=== PATIENT | male | born 1965 | race Caucasian/White ===

== ENCOUNTER 2017-05-27 20:11 | Emergency (ER) | payer OTHER ==
[2017-05-27] MEDS ORDERED: KETOROLAC TROMETHAMINE 30 MG/1 ML VIAL ONE (20:18)
--- NOTE | 2017-05-27 20:22 | PDOC ---
History of Present Illness - General History Source: Patient, Old Records Exam Limitations: No Limitations - History of Present Illness Initial Comments: 05/27/17 21:15 The patient is a 51 year old male, with a significant past medical history of kidney stones (patient estimates about 9 in total requiring prior lithotripsies) , who presents to the emergency department with nausea and intermittent right flank pain for the past 2 days. The patient states that his symptoms feel similar to his prior kidney stones. The patient denies fever or chills. The patient denies vomiting, diarrhea or abdominal pain. Allergies: None reported. Past Surgical History: None reported. Social History: Non-smoker. Denies alcohol or drug use. <Dorcas Rao - Last Filed: 05/27/17 21:20> <Yola Benjamin - Last Filed: 05/28/17 02:59> - General Chief Complaint: Pain, Acute Stated Complaint: KIDNEY STONES Time Seen by Provider: 05/27/17 20:20 Past History <Dorcas Rao - Last Filed: 05/27/17 21:20> - Psycho/Social/Smoking Cessation Hx Anxiety: No Suicidal Ideation: No Smoking History: Unknown if ever smoked Have you smoked in the past 12 months: No Number of Cigarettes Smoked Daily: 0 Hx Alcohol Use: No Drug/Substance Use Hx: No Substance Use Type: None <Yola Benjamin - Last Filed: 05/28/17 02:59> - Past Medical History Allergies/Adverse Reactions: Allergies Allergy/AdvReac Type Severity Reaction Status Date / Time No Known Allergies Allergy Unverified 01/19/16 16:39 Home Medications: Ambulatory Orders Ramipril 5 mg PO DAILY 08/23/16 Hydromorphone [Dilaudid -] 2 mg PO Q6H PRN #10 tablet MDD 3 tabs 05/28/17 Ketorolac Tromethamine [Toradol] 10 mg PO Q6H PRN #20 tablet 05/28/17 Review of Systems - Review of Systems Able to Perform ROS?: Yes Comments:: 05/27/17 21:15 CONSTITUTIONAL: Absent: fever, chills, diaphoresis, generalized weakness, malaise, loss of appetite HEENT: Absent: rhinorrhea, nasal congestion, throat pain, throat swelling, difficulty swallowing, mouth swelling, ear pain, eye pain, visual Changes CARDIOVASCULAR: Absent: chest pain, syncope, palpitations, irregular heart rate, lightheadedness , peripheral edema RESPIRATORY: Absent: cough, shortness of breath, dyspnea with exertion, orthopnea, wheezing, stridor, hemoptysis GASTROINTESTINAL: Present: +Nausea Absent: abdominal pain, abdominal distension, vomiting, diarrhea, constipation, melena, hematochezia GENITOURINARY: Absent: dysuria, frequency, urgency, hesitancy, hematuria, flank pain, genital pain MUSCULOSKELETAL: Present: +Right flank pain Absent: arthralgia, joint swelling SKIN: Absent: rash, itching, pallor HEMATOLOGIC/IMMUNOLOGIC: Absent: easy bleeding, easy bruising, lymphadenopathy, frequent infections ENDOCRINE: Absent: unexplained weight gain, unexplained weight loss, heat intolerance, cold intolerance NEUROLOGIC: Absent: headache, focal weakness or paresthesias, dizziness, unsteady gait, seizure, mental status changes, bladder or bowel incontinence PSYCHIATRIC: Absent: anxiety, depression, suicidal or homicidal ideation, hallucinations <Dorcas Rao - Last Filed: 05/27/17 21:20> *Physical Exam - Physical Exam Comments: 05/27/17 21:20 GENERAL: The patient is awake, alert, and fully oriented, in no acute distress. HEAD: Normal with no signs of trauma. EYES: Pupils equal, round and reactive to light, extraocular movements intact, sclera anicteric, conjunctiva clear with no pallor. ENT: Ears normal, nares patent, oropharynx clear without exudates. Moist mucous membranes. NECK: Normal range of motion, supple without lymphadenopathy, JVD, or masses. LUNGS: Breath sounds equal, clear to auscultation bilaterally. No wheeze/ crackles. HEART: Regular rate and rhythm, normal S1 and S2 without murmur or rub. ABDOMEN: Soft/nontender/nondistended. BS wnl. No guarding or rebound. No palpable masses. No hepatosplenomegaly. EXTREMITIES: Normal range of motion, no edema. No clubbing or cyanosis. No cords , erythema, or tenderness. NEUROLOGICAL: Cranial nerves II through XII grossly intact. Normal speech, normal gait. PSYCH: Normal mood, normal affect. SKIN: Warm, dry, normal turgor, no rashes or lesions noted. <Dorcas Rao - Last Filed: 05/27/17 21:20> ED Treatment Course - LABORATORY CBC & Chemistry Diagram: 05/27/17 20:30 05/27/17 20:30 <Dorcas Rao - Last Filed: 05/27/17 21:20> - LABORATORY CBC & Chemistry Diagram: 05/27/17 20:30 05/27/17 20:30 <Yola Benjamin - Last Filed: 05/28/17 02:59> Progress Note - Progress Note Progress Note: Documentation has been prepared under my direction and personally reviewed by me in its entirety. I attest that this documented accurately reflects all work, treatment, procedures and medical decision making performed by me. <Yola Benjamin - Last Filed: 05/28/17 02:59> Medical Decision Making - Medical Decision Making As noted above, this 51-year-old man with a long history of kidney stones and erythrocytosis(on ramipril 5 mg daily) presents with 3 day history of his usual renal colic pain, located in the right flank. Patient describes history of typically having large stones needing surgical removal or lithotripsy. He states that he has not had any kidney stones in the last 7 years. He has had both uric acid and calcium oxalate stones. Exam as noted. Patient was treated with IV hydration with normal saline and 30 mg Toradol IV. Patient had significant relief in symptoms after intravenous Toradol. Renal stone protocol spiral CT interpreted by Imaging electrician second revealed hydronephrosis on the right with an obstructing calculus in the proximal right ureter measuring 4.5 mm. There is also an 8 mm calculus in the right renal pelvis. The left kidney is atrophic with a staghorn calculus in the collecting system. Other than 11 mm hypodensity in the right lobe of the liver, no other significant abnormalities seen. CBC and chemistry profile also evaluated. CBC notable for white blood cell count of 16,300; hematocrit is 49%. Chemistry profile notable for potassium 3.2; BUN was 20 with a creatinine of 1.2. Uncorrected calcium level was 6.3 with albumin of 2.8. Corrected calcium level was 7.4. Patient was asked directly about previous history of hypocalcemia. He denies any previous calcium level issues; no history of parathyroid problems. He denies muscle cramping/tremors/seizures. 12-lead electrocardiogram performed and interpreted by me: Sinus bradycardia at 656/minute; intervals, wave forms and axis are all normal. No evidence of QT prolongation or other acute abnormalities. Patient had recurrence of right flank pain with nausea. He was given 0.5 mg of Dilaudid IV. Patient reports marked relief after Dilaudid IV. Patient will be discharged with prescriptions for Toradol 10 mg by mouth (patient states that he tends to use nonsteroidal anti-inflammatory medications rather than narcotics for his renal colic pain; ibuprofen proved to be ineffective this weekend for his pain) . He will also be given a small (#10) prescription for Dilaudid 2 mg tabs to be used up to 3 times a day for severe pain. Patient states that he had had hydromorphone tabs in the past for severe renal colic pain and they were effective (he has had severe constipation with oxycodone) Patient is strongly advised to call his PMD, Dr. Omalley,tomorrow morning to arrange follow-up within the next few days. He should return to the emergency room if he has severe pain/persistent nausea or has tremulousness/muscle spasms. Meanwhile, he should drink plenty of fluids. He was given work documentation not to work for the next 2 days Since the patient has not had follow-up with urologist in recent years, he asked for referral and was given 's information. <Yola Benjamin - Last Filed: 05/28/17 02:59> *DC/Admit/Observation/Transfer - Attestations Scribe Attestion: 05/27/17 20:27 Documentation prepared by Dorcas Rao, acting as medical malpractice paralegal for Yola Benjamin MD. <Dorcas Rao - Last Filed: 05/27/17 21:20> <Yola Benjamin - Last Filed: 05/28/17 02:59> Diagnosis at time of Disposition: Renal colic on right side - Discharge Dispostion Disposition: HOME Condition at time of disposition: Stable - Prescriptions Prescriptions: Hydromorphone [Dilaudid -] 2 mg PO Q6H PRN #10 tablet MDD 3 tabs PRN Reason: Severe Pain Ketorolac Tromethamine [Toradol] 10 mg PO Q6H PRN #20 tablet PRN Reason: Pain - Referrals Referrals: Milan Singh MD [Staff Physician] - - Patient Instructions Printed Discharge Instructions: Kidney Stones -- Adult Additional Instructions: Drink plenty of water no work tomorrow Toradol 10 mg up to 3 times a day as needed for moderate pain Dilaudid 2 mg up to 3 times a day for severe pain Call Dr. Omalley's office tomorrow for followup within the next 3-4 days Followup with urologist (Dr. Singh) within the next week to 10 days Return to ER if you have severe pain/fever/vomiting - Post Discharge Activity Work/School Note: Back to Work
[2017-05-27] MEDS ORDERED: SODIUM CHLORIDE 1,000 ML IV STA (20:27)
[2017-05-27] MEDS ORDERED: KETOROLAC TROMETHAMINE 30 MG/1 ML VIAL IVPUSH ONE (20:27)
[2017-05-27 20:40] VITALS: TEMP 98.4; BMI 32.5
[2017-05-27 20:55] LABS: PH,URINE 5.5 (4.5-8); URINE APPEARANCE Clear; URINE BILIRUBIN Negative (NEGATIVE); URINE GLUCOSE (UA) Negative (NEGATIVE); URINE KETONE Negative (NEGATIVE); URINE NITRITE Negative (NEGATIVE); URINE UROBILINOGEN 0.2 E.U/dl (0.2-1.0)
[2017-05-27 21:03] LABS: URINE BLOOD 3+ (NEGATIVE); URINE COLOR YELLOW; URINE LEUK ESTERASE 1+ (NEGATIVE); URINE PROTEIN 2+ (NEGATIVE)
[2017-05-27 21:04] LABS: BASOPHIL 1.5 % (0-2.0); EOSINOPHIL 3.1 % (0-4.5); MCH 25.6 pg (25.7-33.7); MEAN CELL VOLUME 77.6 fl (80-96); MEAN PLT VOLUME 8.6 fl (7.5-11.1); NEUTROPHILS 71.3 % (42.8-82.8); PLATELET COUNT 424 K/MM3 (134-434); RDW 14.6 % (11.9-15.9); WHITE BLOOD COUNT 16.3 K/mm3 (4.0-10.8)
[2017-05-27 21:07] LABS: ALBUMIN 2.8 g/dl (3.5-5.0); ALK PHOS 59 U/L (32-92); ANION GAP 3 (8-16); BILIRUBIN,TOTAL 0.5 mg/dl (0.2-1.0); CO2 19 mmol/L (22-28); CREATININE 1.2 mg/dl (0.6-1.3); GLUCOSE,RANDOM 75 mg/dl (74-106); SGOT/AST 21 U/L (10-42); SGPT/ALT 25 U/L (10-40); TOT PROT 4.8 g/dl (6.4-8.3)
[2017-05-27 21:12] LABS: CALCIUM 6.3 mg/dl (8.4-10.2)
[2017-05-27 21:30] LABS: URINE RBC >100 /hpf (0-3)
[2017-05-27 21:31] LABS: URIC ACID CRYSTALS MODERATE /hpf (NONE SEEN)
[2017-05-27] MEDS ORDERED: HYDROmorphone HCL CARPU-JECT 1 MG/1 ML DISP.SYRIN IVPUSH ONE (23:42)
[2017-05-27] MEDS ORDERED: HYDROmorphone HCL CARPU-JECT 1 MG/1 ML DISP.SYRIN ONE (23:47)
[2017-05-28 01:33] VITALS: BP 133/89; PULSE 60
--- NOTE | 2017-05-28 09:14 | EKG ---
Test Reason : Blood Pressure : / mmHG Vent. Rate : 056 BPM Atrial Rate : 056 BPM P-R Int : 182 ms QRS Dur : 088 ms QT Int : 414 ms P-R-T Axes : 055 042 004 degrees QTc Int : 399 ms SINUS BRADYCARDIA OTHERWISE NORMAL ECG NO PREVIOUS ECGS AVAILABLE Confirmed by DENISE PAULA MD ([id number]) on 05/28/2017 9:13:56 AM Referred By: MD BUSTAMANTE Confirmed By:DENISE PAULA MD
== END 2017-05-28 01:38 | disposition home or self-care (01) ==
LOC: FER 20:11
PROC: 3E033NZ Introduction of Analgesics, Hypnotics, Sedatives into Peripheral Vein, Percutaneous Approach (ICD-10-PCS; principal; 2017-05-27)
PROC: 3E0333Z Introduction of Anti-inflammatory into Peripheral Vein, Percutaneous Approach (ICD-10-PCS; 2017-05-27)
PROC: 3E0337Z Introduction of Electrolytic and Water Balance Substance into Peripheral Vein, Percutaneous Approach (ICD-10-PCS; 2017-05-27)
DX: N23 Unspecified renal colic (principal); Z87.442 Personal history of urinary calculi
CPT/HCPCS: 36415; 74176; 80053; 81003; 81015; 85025; 93005; 99282-25

== ENCOUNTER 2017-06-06 13:56 | Inpatient (IN) | payer OTHER ==
[2017-06-06 14:01] VITALS: BMI 32.5
--- NOTE | 2017-06-06 14:30 | PDOC ---
History of Present Illness - General Chief Complaint: Revisit, Lab Variance Stated Complaint: SENT BY PCP Time Seen by Provider: 06/06/17 14:22 History Source: Patient Exam Limitations: No Limitations - History of Present Illness Initial Comments: CHIEF COMPLAINT: 51 y/o afebrile male with PMH HTN sent in by Dr. Singh for admission for kidney stone removal. HISTORY OF PRESENT ILLNESS: According to Dr. Singh, the patient has a staghorn left sided kidney stone, as well as a 9mm right sided proximal stone. He states the patient's creatinine was elevated today to 6. He is going to perform surgery this evening to remove the stones and would like him admitted. The patient states he has had some left flank and pelvic pain for the past 2 weeks. He states he feels nauseous and tired. He denies f/c, v/d, CP, SOB, back pain, dysuria. He has had to have stents in the past for his stones. Vital signs on arrival are within normal limits. REVIEW OF SYSTEMS: GENERAL/CONSTITUTIONAL: No fever/chills. No weakness. No weight change. HEAD, EYES, EARS, NOSE AND THROAT: No change in vision. No ear pain or discharge. No sore throat. CARDIOVASCULAR: No chest pain or shortness of breath. RESPIRATORY: No cough, wheezing, or hemoptysis. GASTROINTESTINAL: +left abdominal pain. +nausea. No vomiting, diarrhea, constipation. GENITOURINARY: +hematuria. No dysuria, frequency. MUSCULOSKELETAL: No joint or muscle swelling or pain. No neck or back pain. SKIN: No rash or easy bruising. NEUROLOGIC: No headache, vertigo, loss of consciousness, or loss of sensation. PHYSICAL EXAM: GENERAL: The patient is awake, alert, and fully oriented, in no acute distress. He is ambulatory and in NAD or obvious discomfort. HEAD: Normal with no signs of trauma. ENT: Pupils equal, round and reactive to light, extraocular movements intact, sclera anicteric, conjunctiva clear. Neck supple. LUNGS: Clear to auscultation bilaterally. Normal excursion. No respiratory distress or use of accessory muscles. CV: RRR, S1/S2, no MRG. Cap refill < 2 sec. ABDOMEN: Soft, non-distended, TTP of left pelvic region and LLQ. No rebound, guarding or rigidity. No flank pain with palpation. BACK: No CVA TTP b/l. EXTREMITIES: Normal range of motion, no edema. NEUROLOGICAL: Normal speech, normal gait. CN II-XII grossly intact. PSYCH: Normal mood, normal affect. SKIN: Warm, dry, normal turgor, no rashes or lesions noted. Past History - Past Medical History Allergies/Adverse Reactions: Allergies Allergy/AdvReac Type Severity Reaction Status Date / Time No Known Allergies Allergy Verified 06/06/17 14:01 Home Medications: Ambulatory Orders Ramipril 5 mg PO DAILY 08/23/16 Hydromorphone [Dilaudid -] 2 mg PO Q6H PRN #10 tablet MDD 3 tabs 05/28/17 Ketorolac Tromethamine [Toradol] 10 mg PO Q6H PRN #20 tablet 05/28/17 Kidney Stones: Yes Other medical history: HIGH RED BLOOD CELL COUNT. - Psycho/Social/Smoking Cessation Hx Anxiety: No Suicidal Ideation: No Smoking History: Never smoked Have you smoked in the past 12 months: No Number of Cigarettes Smoked Daily: 0 Hx Alcohol Use: Yes (SOCIAL) Drug/Substance Use Hx: No Substance Use Type: None *Physical Exam - Vital Signs Last Vital Signs Temp Pulse Resp BP Pulse Ox 97.4 F L 85 20 123/76 98 06/06/17 13:57 06/06/17 13:57 06/06/17 13:57 06/06/17 13:57 06/06/17 13:57 Heart Score/ECG Review - ECG Intrepretation Comment:: Twelve-lead EKG was performed and reviewed by Dr. Doshi. There is normal sinus rhythm with a normal rate. The axis is normal. The intervals are normal. There are no ST or T wave abnormalities. Impression: Normal twelve-lead EKG ED Treatment Course - LABORATORY CBC & Chemistry Diagram: 06/06/17 14:45 06/06/17 14:45 Medical Decision Making - Medical Decision Making A/P: 51 y/o male with 2 large, obstructing kidney stones, sent in by Dr. Donn Gregory for admission for surgery. Plan is as follows: 1. Pre-op labs 2. EKG 3. UA/culture 4. Admission to hospitalist Hospitalist microblogged. Pt made NPO. Will order fluids He does not want any pain meds or nausea medication at this time. Dr. Cabrera accepts admission. *DC/Admit/Observation/Transfer Diagnosis at time of Disposition: Creatinine elevation, Obstruction of kidney, Kidney stones, Hyperkalemia, Acute kidney injury - Discharge Dispostion Admit: Yes - Referrals
[2017-06-06 14:52] LABS: BASOPHIL 0.5 % (0-2.0); EOSINOPHIL 1.6 % (0-4.5); MCH 25.2 pg (25.7-33.7); MCHC 32.2 g/dl (32.0-35.9); MEAN CELL VOLUME 78.3 fl (80-96); MEAN PLT VOLUME 8.1 fl (7.5-11.1); PLATELET COUNT 280 K/MM3 (134-434); WHITE BLOOD COUNT 15.3 K/mm3 (4.0-10.0)
--- NOTE | 2017-06-06 14:54 | PDOC ---
*Physical Exam - Vital Signs Last Vital Signs Temp Pulse Resp BP Pulse Ox 97.4 F L 85 20 123/76 98 06/06/17 13:57 06/06/17 13:57 06/06/17 13:57 06/06/17 13:57 06/06/17 13:57 ED Treatment Course - LABORATORY CBC & Chemistry Diagram: 06/07/17 05:45 06/07/17 05:45 Medical Decision Making - Medical Decision Making 06/06/17 14:53 The patient was seen and evaluated in conjunction with EYAD Sam under my direct supervision, ancillary studies were reviewed. I independently interviewed and evaluated the patient and I agree with the plan as outlined by EYAD Sam . 51y M hx of b/l kidney stones, sent to ED by dr. orantes for elevated creatinine , had Cr of 6.0 as outpatient. pt placed on radiation monitor EKG performed earline tid dnot reveal any hyperK signs will obtain repeat blood work an dpreop labs plan for OR by Dr. Orantes this evening at 5pm 06/06/17 15:41 labs noted for hyperkalemia will give hyperk coctail admission to tele *DC/Admit/Observation/Transfer Diagnosis at time of Disposition: Creatinine elevation, Obstruction of kidney, Kidney stones, Hyperkalemia, Acute kidney injury - Referrals - Patient Instructions - Post Discharge Activity
[2017-06-06 15:15] LABS: ALBUMIN 3.6 g/dl (3.4-5.0); ALK PHOS 108 U/L (45-117); ANION GAP 11 (8-16); BILIRUBIN,TOTAL 0.5 mg/dL (0.2-1.0); CALCIUM 9.5 mg/dL (8.5-10.1); CO2 17 mmol/L (21-32); GLUCOSE,RANDOM 96 mg/dL (74-106); SGOT/AST 9 U/L (15-37); SGPT/ALT 21 U/L (12-78); TOT PROT 7.2 g/dl (6.4-8.2)
[2017-06-06] MEDS ORDERED: SODIUM CHLORIDE 1,000 ML IV SCH (15:15)
[2017-06-06 15:27] LABS: URINE APPEARANCE SLCLOUDY; URINE BILIRUBIN NEGATIVE (NEGATIVE); URINE COLOR LTYELLOW; URINE GLUCOSE (UA) NEGATIVE (NEGATIVE); URINE KETONE NEGATIVE (NEGATIVE); URINE NITRITE NEGATIVE (NEGATIVE); URINE UROBILINOGEN NEGATIVE E.U./dl (0.2-1.0)
[2017-06-06] MEDS ORDERED: DEXTROSE 50%-WATER - 25 GM/50 ML VIAL IVPUSH ONE ×2 (15:34→20:12)
[2017-06-06] MEDS ORDERED: INSULIN REGULAR HUMAN 100 UNITS/ML *VIAL IVPUSH ONE ×2 (15:34→20:12)
[2017-06-06] MEDS ORDERED: SODIUM BICARBONATE 8.4% 50 MEQ/50 ML DISP.SYRIN IVPUSH ONE (15:34)
[2017-06-06 15:35] LABS: INR 1.12 (0.82-1.09); PROTHROMBIN TIME (PATIENT) 12.3 SEC (9.98-11.88)
[2017-06-06] MEDS ORDERED: SODIUM POLYSTYRENE SULFONATE 15 GM/60 ML BOTTLE PO ONE (15:35)
--- NOTE | 2017-06-06 15:35 | HP ---
CHIEF COMPLAINT: Abnormal creatinine PCP: Dr. Omalley HISTORY OF PRESENT ILLNESS: This is a 51 year old male with a history of polycythemia (has regular phlebotomy treatments, on Ramipril) and nephrolithiasis s/p multiple lithotripsies referred from his urologist's for 0.9mm right UPJ calculus and left staghorn calculus with hydronephrosis and elevated creatinine and potassium. He complains of nausea and suprapubic pain. 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 Smoking: Never smoker Alcohol: Occasional Drugs: None Family History: Non-contributory Allergies No Known Allergies Allergy (Verified 06/06/17 14:01) HOME MEDICATIONS: Home Medications Medication Instructions Recorded Ramipril 5 mg PO DAILY 08/23/16 Hydromorphone [Dilaudid -] 2 mg PO Q6H PRN #10 tablet MDD 3 05/28/17 tabs Ketorolac Tromethamine [Toradol] 10 mg PO Q6H PRN #20 tablet 05/28/17 REVIEW OF SYSTEMS CONSTITUTIONAL: Absent: fever, chills, diaphoresis, generalized weakness, malaise, loss of appetite, weight change HEENT: Absent: rhinorrhea, nasal congestion, throat pain, throat swelling, difficulty swallowing, mouth swelling, ear pain, eye pain, visual changes CARDIOVASCULAR: Absent: chest pain, syncope, palpitations, irregular heart rate, lightheadedness , peripheral edema RESPIRATORY: Absent: cough, shortness of breath, dyspnea with exertion, orthopnea, wheezing, stridor, hemoptysis GASTROINTESTINAL: Absent: abdominal pain, abdominal distension, nausea, vomiting, diarrhea, constipation, melena, hematochezia GENITOURINARY: Dysuria, hematuria, suprapubic pain Absent: flank pain, genital pain MUSCULOSKELETAL: Absent: myalgia, arthralgia, joint swelling, back pain, neck pain SKIN: Absent: rash, itching, pallor HEMATOLOGIC/IMMUNOLOGIC: Absent: easy bleeding, easy bruising, lymphadenopathy, frequent infections ENDOCRINE: Absent: unexplained weight gain, unexplained weight loss, heat intolerance, cold intolerance NEUROLOGIC: Absent: headache, focal weakness or paresthesias, dizziness, unsteady gait, seizure, mental status changes, bladder or bowel incontinence PSYCHIATRIC: Absent: anxiety, depression, suicidal or homicidal ideation, hallucinations. PHYSICAL EXAMINATION GENERAL: Awake, alert, and fully oriented, in no acute distress. HEAD: Normal with no signs of trauma. EYES: Pupils equal, round and reactive to light, extraocular movements intact, sclera anicteric, conjunctiva clear. No lid lag. EARS, NOSE, THROAT: Ears normal, nares patent, oropharynx clear without exudates. Moist mucous membranes. NECK: Normal range of motion, supple without lymphadenopathy, JVD, or masses. LUNGS: Breath sounds equal, clear to auscultation bilaterally. No wheezes, and no crackles. No accessory muscle use. HEART: Regular rate and rhythm, normal S1 and S2 without murmur, rub or gallop. ABDOMEN: Soft, Suprapubic, bilateral lower quadrant tenderness (R>L). MUSCULOSKELETAL: Normal range of motion at all joints. No bony deformities or tenderness. No CVA tenderness. UPPER EXTREMITIES: 2+ pulses, warm, well-perfused. No cyanosis. No clubbing. No peripheral edema. LOWER EXTREMITIES: 2+ pulses, warm, well-perfused. No calf tenderness. No peripheral edema. NEUROLOGICAL: Cranial nerves II-XII intact. Normal speech. Normal gait. PSYCHIATRIC: Cooperative. Good eye contact. Appropriate mood and affect. SKIN: Warm, dry, normal turgor, no rashes or lesions noted, normal capillary refill. ASSESSMENT/PLAN: 51 year old male with acute kidney injury and hyperkalemia likely secondary to obstructive nephrolithiasis. Problem List - Problem (1) Acute kidney injury Assessment/Plan: -Likely secondary to obstructive nephrolithiasis -Hydration -For OR when hyperkalemia resolved -Expect improvement after lithotripsy -Consult nephrology if not resolving Code(s): N17.9 - ACUTE KIDNEY FAILURE, UNSPECIFIED (2) Hyperkalemia Assessment/Plan: -No EKG changes -Insulin 5 units Dextrose 50% 25g Sodium bicarbonate 50 mEq Code(s): E87.5 - HYPERKALEMIA (3) Obstruction of kidney Assessment/Plan: -For OR tonight -UA suggestive of infection: Ceftriaxone 1g daily, follow up urine culture Code(s): N28.89 - OTHER SPECIFIED DISORDERS OF KIDNEY AND URETER (4) Polycythemia Assessment/Plan: -No active issues -Hold Ramipril until MENDOZA resolves Code(s): D75.1 - SECONDARY POLYCYTHEMIA (5) DVT prophylaxis Assessment/Plan: -Ambulation -SCDs -Start qh post-operatively Code(s): GZM3023 - Visit type - Emergency Visit Emergency Visit: Yes ED Registration Date: 06/06/17 Care time: The patient presented to the Emergency Department on the above date and was hospitalized for further evaluation of their emergent condition. - New Patient This patient is new to me today: Yes Date on this admission: 06/06/17 - Critical Care Critical Care patient: Yes Total Critical Care Time (in minutes): 35 Critical Care Statement: The care of this patient involved high complexity decision making to prevent further life threatening deterioration of the patient 's condition and/or to evalute & treat vital organ system(s) failure or risk of failure.
[2017-06-06] MEDS ORDERED: ONDANSETRON 4 MG/2 ML VIAL IVPB PRN (15:38)
[2017-06-06] MEDS ORDERED: morphine CARPU-JECT 2 MG/1 ML DISP.SYRIN IVPUSH PRN (15:38)
[2017-06-06] MEDS ORDERED: DEXTROSE 50%-WATER 50 ML DISP.SYRIN ONE ×4 (15:49→20:45)
[2017-06-06] MEDS ORDERED: SODIUM BICARBONATE 8.4% 50 MEQ/50 ML VIAL ONE (15:49)
[2017-06-06] MEDS ORDERED: SODIUM POLYSTYRENE SULFONATE 15 GM/60 ML BOTTLE ONE (15:50)
[2017-06-06 15:52] LABS: URINE BLOOD 3+ (NEGATIVE); URINE LEUK ESTERASE 2+ (NEGATIVE); URINE PROTEIN 1+ (NEGATIVE)
[2017-06-06 16:23] LABS: URINE MUCUS RARE; URINE RBC 177 /hpf (0-3); URINE WBC 53 /hpf (3-5)
[2017-06-06] MEDS ORDERED: CEFTRIAXONE 1 GM in DEXTROSE 5%-WATER - 50 ML IVPB SCH (17:30)
[2017-06-06 18:25] LABS: ANION GAP 9 (8-16); CALCIUM 9.3 mg/dL (8.5-10.1); CO2 21 mmol/L (21-32); CREATININE 5.9 mg/dL (0.7-1.3); GLUCOSE,RANDOM 51 mg/dL (74-106)
[2017-06-06] MEDS ORDERED: DEXTROSE 5%-NORMAL SALINE 1,000 ML IV SCH ×2 (18:45→18:53)
[2017-06-06] MEDS ORDERED: ALBUTEROL SO4 0.083% IH SOL 2.5 MG/3 ML VIAL.NEB. NEB ONE (20:14)
[2017-06-06] MEDS ORDERED: INSULIN (NOVOLOG) ASPART 100 UNITS/ML 10ML VIAL ONE (20:43)
--- NOTE | 2017-06-06 21:01 | CONSULT ---
Consult - text type - Consultation Consultation Note: cc: right hydronephrosis with ureteral stones and acute renal failures hpi: patient with history of right hydro secondary to 0.9 cm right upj stone with acute renal failure and hyperkalemia. patient is comfortable. Therapeutic measures to correct the hyperkalemia is not correcting the issue. PE mild right cvat imp acute renal failure right hydro with right ureteral and upj stone with poorly functioning left kidney secondary to left staghorn calculus plan 60 minutes spent discussing case with patient, anesthesia, and invasive radiolgy. Consent for right percutaneous nephrostomy tube placement.
[2017-06-06] MEDS: morphine CARPU-JECT 4 MG/1 ML DISP.SYRIN IVPUSH PRN (22:15)
[2017-06-06 22:24] LABS: ANION GAP 11 (8-16); CALCIUM 8.9 mg/dL (8.5-10.1); CO2 17 mmol/L (21-32); GLUCOSE,RANDOM 239 mg/dL (74-106)
[2017-06-07] MEDS: morphine CARPU-JECT 4 MG/1 ML DISP.SYRIN IVPUSH PRN ×3 (02:05→21:49)
[2017-06-07 07:52] LABS: MCH 25.4 pg (25.7-33.7); MCHC 32.7 g/dl (32.0-35.9); MEAN CELL VOLUME 77.8 fl (80-96); MEAN PLT VOLUME 8.4 fl (7.5-11.1); PLATELET COUNT 275 K/MM3 (134-434); RDW 16.3 % (11.9-15.9); WHITE BLOOD COUNT 11.8 K/mm3 (4.0-10.0)
--- NOTE | 2017-06-07 08:32 | CONSULT ---
Consult - text type - Consultation Consultation Note: CC: right hydro with acute renal failure secondary to right upj and ureteral stone with poorly functioning left kidney secondary to left staghorn calculus hpi: patient is s/p a right percutaneous nephrostomy tube. Patient is doing well and is comfortable. PE vss; afeb abd- soft, non-tender; right percutaneous NT draining well with blood tinged urine morning chemistry pending imp right hydro secondary to renal and ureteral stones s/p perc acute renal failure left staghorn calculus with poor function of left kidney plan follow renal function Dr. Hall for renal consult will place ureteral stent on Sunday if medically stable
[2017-06-07 09:43] LABS: ALBUMIN 3.4 g/dl (3.4-5.0); ALK PHOS 98 U/L (45-117); BILIRUBIN,TOTAL 0.9 mg/dL (0.2-1.0); CALCIUM 9.4 mg/dL (8.5-10.1); CREATININE 2.7 mg/dL (0.7-1.3); GLUCOSE,RANDOM 100 mg/dL (74-106); MAGNESIUM 2.1 mg/dL (1.8-2.4); PHOSPHOROUS 4.8 mg/dL (2.5-4.9); SGOT/AST 13 U/L (15-37); SGPT/ALT 17 U/L (12-78); TOT PROT 6.8 g/dl (6.4-8.2)
[2017-06-07] MEDS: CEFTRIAXONE 50 ML IVPB SCH (09:49)
--- NOTE | 2017-06-07 10:49 | CON.CARD ---
Cardiology Consult (text) - Consultation Consultation Note: cc: sent to er 2/2 renal stones and hari hpi: 51 m hx kidney stones sent to er 2/2 renal stones and hari. Had been following with and recent outpt labs showed hari with cr in 6s so sent to er. No cp, sob, palps, dizzy, loc, pnd, orthopnea, le edema. No hx hrt dz, cva, tia, dm. Had nephrostomy tube and planned for ureter stent next week. Elevated k so admitted to tele. pmh: per hpi psh: nc social: no tob fam: no premature cad/scd ros: per hpi; no fever, diarrhea, gib, dysuria, wt loss, rash, cough, nasal congestion, comer, vision changes meds: Home Medications Medication Instructions Recorded Hydromorphone [Dilaudid -] 2 mg PO Q6H PRN #10 tablet MDD 3 05/28/17 tabs Ketorolac Tromethamine [Toradol] 10 mg PO Q6H PRN #20 tablet 05/28/17 pe: Vital Signs Period Temp Pulse Resp BP Sys/Aguirre Pulse Ox Last 24 Hr 97.4 F-98.5 F 64-88 17-20 116-135/67-86 95-99 nad no jvd rrr s1s2 no mrg cta bl nl eff aaox3 no le e/c/c abd nt nd pos bs no jaundice diaphoresis +dp pt no carotid bruits Laboratory Last Values WBC 11.8 K/mm3 (4.0-10.0) H 06/07/17 05:45 RBC 5.57 M/mm3 (4.00-5.60) 06/07/17 05:45 Hgb 14.1 GM/dL (11.7-16.9) 06/07/17 05:45 Hct 43.3 % (35.4-49) 06/07/17 05:45 MCV 77.8 fl (80-96) L 06/07/17 05:45 MCH 25.4 pg (25.7-33.7) L 06/07/17 05:45 MCHC 32.7 g/dl (32.0-35.9) 06/07/17 05:45 RDW 16.3 % (11.9-15.9) H 06/07/17 05:45 Plt Count 275 K/MM3 (134-434) 06/07/17 05:45 MPV 8.4 fl (7.5-11.1) 06/07/17 05:45 Neutrophils % Y 06/07/17 05:45 Lymphocytes % Y 06/07/17 05:45 Monocytes % 8.1 % (3.8-10.2) 06/06/17 14:45 Eosinophils % 1.6 % (0-4.5) 06/06/17 14:45 Basophils % 0.5 % (0-2.0) 06/06/17 14:45 INR 1.12 (0.82-1.09) 06/06/17 14:45 Sodium 143 mmol/L (136-145) 06/07/17 05:45 Potassium 5.9 mmol/L (3.5-5.1) H 06/07/17 05:45 Chloride 113 mmol/L (98-107) H 06/07/17 05:45 Carbon Dioxide 17 mmol/L (21-32) L 06/06/17 21:30 Anion Gap 11 (8-16) 06/06/17 21:30 BUN 52 mg/dL (7-18) H D 06/07/17 05:45 Creatinine 2.7 mg/dL (0.7-1.3) H D 06/07/17 05:45 Creat Clearance w eGFR 24.94 (>60) 06/07/17 05:45 POC Glucometer 88 UNITS (()) 06/06/17 18:49 Random Glucose 100 mg/dL (74-106) D 06/07/17 05:45 Calcium 9.4 mg/dL (8.5-10.1) 06/07/17 05:45 Phosphorus 4.8 mg/dL (2.5-4.9) 06/07/17 05:45 Magnesium 2.1 mg/dL (1.8-2.4) 06/07/17 05:45 Total Bilirubin 0.9 mg/dL (0.2-1.0) D 06/07/17 05:45 AST 13 U/L (15-37) L D 06/07/17 05:45 ALT 17 U/L (12-78) 06/07/17 05:45 Alkaline Phosphatase 98 U/L (45-117) 06/07/17 05:45 Total Protein 6.8 g/dl (6.4-8.2) 06/07/17 05:45 Albumin 3.4 g/dl (3.4-5.0) 06/07/17 05:45 Urine Color Ltyellow 06/06/17 15:20 Urine Appearance Slcloudy 06/06/17 15:20 Urine pH 5.0 (5.0-8.0) 06/06/17 15:20 Ur Specific [place] 1.020 (1.005-1.025) 06/06/17 15:20 Urine Protein 1+ (NEGATIVE) H 06/06/17 15:20 Urine Glucose (UA) Negative (NEGATIVE) 06/06/17 15:20 Urine Ketones Negative (NEGATIVE) 06/06/17 15:20 Urine Blood 3+ (NEGATIVE) H 06/06/17 15:20 Urine Nitrite Negative (NEGATIVE) 06/06/17 15:20 Urine Bilirubin Negative (NEGATIVE) 06/06/17 15:20 Urine Urobilinogen Negative mg/dL (0.2-1.0) 06/06/17 15:20 Ur Leukocyte Esterase 2+ (NEGATIVE) H 06/06/17 15:20 Urine RBC 177 /hpf (0-3) 06/06/17 15:20 Urine WBC 53 /hpf (3-5) 06/06/17 15:20 Urine Mucus Rare 06/06/17 15:20 Blood Type B POSITIVE 06/06/17 18:10 Antibody Screen Negative 06/06/17 14:45 tele: sr, wenckebach during sleep ecg 06/06/17: sr, nl intervals, no ischemic changes a/p: 51 m hx kidney stones sent to er 2/2 renal stones and hari. renal stones, hari, hyperkalemia: -cont ivfs -renal consulted -Had nephrostomy tube and planned for ureter stent next week. -monitor on tele while still with hyperkalemia bradycardia, wenckebach, mobitz I: -tele shows episode of mobitz I second degree avb during sleep-->likely due to increased vagal tone during sleep and possibly BAL. No particular interventions /treatment needed for wenckebach but pt should have sleep study as outpt to look for BAL -check echo, tsh
[2017-06-07 11:16] LABS: PLATELET ESTIMATE ADEQUATE (NORMAL)
[2017-06-07 11:44] LABS: ANION GAP 11 (8-16); CO2 19 mmol/L (21-32)
--- NOTE | 2017-06-07 13:07 | EKG ---
Test Reason : Blood Pressure : / mmHG Vent. Rate : 074 BPM Atrial Rate : 074 BPM P-R Int : 166 ms QRS Dur : 088 ms QT Int : 360 ms P-R-T Axes : 040 022 -06 degrees QTc Int : 399 ms NORMAL SINUS RHYTHM NORMAL ECG WHEN COMPARED WITH ECG OF 06-JUN-2017 17:15, NO SIGNIFICANT CHANGE WAS FOUND Confirmed by EMI TROTTER MD ([id number]) on 06/07/2017 1:06:37 PM Referred By: ROSE MARY GAN Confirmed By:EMI TROTTER MD
--- NOTE | 2017-06-07 13:09 | EKG ---
Test Reason : Blood Pressure : / mmHG Vent. Rate : 085 BPM Atrial Rate : 085 BPM P-R Int : 154 ms QRS Dur : 086 ms QT Int : 352 ms P-R-T Axes : 036 036 -02 degrees QTc Int : 418 ms NORMAL SINUS RHYTHM NORMAL ECG WHEN COMPARED WITH ECG OF 28-MAY-2017 01:24, VENT. RATE HAS INCREASED BY 29 BPM Confirmed by EMI TROTTER MD ([id number]) on 06/07/2017 1:09:25 PM Referred By: Confirmed By:EMI TROTTER MD
[2017-06-07] MEDS ORDERED: SODIUM CHLORIDE 0.45% 1,000 ML IV SCH (16:30)
--- NOTE | 2017-06-07 16:49 | CONSULT ---
Consultation: REQUESTING PROVIDER: CONSULT REQUEST: We have been asked to medically evaluate this patient for MENDOZA and kidney stone. HISTORY OF PRESENT ILLNESS: 51 yo M with significant PMHx of polycythemia (has regular phlebotomy treatments, on Ramipril) and nephrolithiasis s/p multiple lithotripsies referred from his urologist's for 0.9mm right UPJ calculus and left staghorn calculus with hydronephrosis and elevated creatinine and potassium. Called for consult on MENDOZA with stones. He has history of multiple stones in past x6. They have been of multiple etiology both calcium and uric acid. He states that he drinks plenty of water enough to make at least 2L of urine daily. He admits to hematuria and dysuria on admisson. Currently treated with IVF and Ceftriaxone. Denies NSAID use. Denies CP, LEAL, palpitations, N/V. 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 Smoking: Never smoker Alcohol: Occasional Drugs: None Family History: Non-contributory Allergies No Known Allergies Allergy (Verified 06/06/17 14:01) REVIEW OF SYSTEMS: CONSTITUTIONAL: Absent: fever, chills, diaphoresis, generalized weakness, malaise, loss of appetite, weight change HEENT: Absent: rhinorrhea, nasal congestion, throat pain, throat swelling, difficulty swallowing, mouth swelling, ear pain, eye pain, visual changes CARDIOVASCULAR: Absent: chest pain, syncope, palpitations, irregular heart rate, lightheadedness , peripheral edema RESPIRATORY: Absent: cough, shortness of breath, dyspnea with exertion, orthopnea, wheezing, stridor, hemoptysis GASTROINTESTINAL: Absent: abdominal pain, abdominal distension, nausea, vomiting, diarrhea, constipation, melena, hematochezia GENITOURINARY: dysuria, hematuria, flank pain Absent: frequency, urgency, hesitancy,, genital pain MUSCULOSKELETAL: Absent: myalgia, arthralgia, joint swelling, back pain, neck pain SKIN: Absent: rash, itching, pallor HEMATOLOGIC/IMMUNOLOGIC: Absent: easy bleeding, easy bruising, lymphadenopathy, frequent infections ENDOCRINE: Absent: unexplained weight gain, unexplained weight loss, heat intolerance, cold intolerance NEUROLOGIC: Absent: headache, focal weakness or paresthesias, dizziness, unsteady gait, seizure, mental status changes, bladder or bowel incontinence PSYCHIATRIC: Absent: anxiety, depression, suicidal or homicidal ideation, hallucinations. PHYSICAL EXAMINATION Vital Signs - 24 hr 06/06/17 06/06/17 06/06/17 18:08 20:30 21:55 Temperature 98.5 F 97.9 F Pulse Rate 76 77 84 Respiratory 18 18 17 Rate Blood Pressure 126/67 133/86 116/71 O2 Sat by Pulse 99 97 Oximetry (%) 06/06/17 06/06/17 06/06/17 22:00 22:15 22:30 Temperature 97.4 F L Pulse Rate 88 84 77 Respiratory 17 20 18 Rate Blood Pressure 124/73 124/75 122/77 O2 Sat by Pulse 95 Oximetry (%) 06/06/17 06/07/17 06/07/17 22:45 02:00 06:00 Temperature 97.4 F L 97.6 F 97.4 F L Pulse Rate 77 76 64 Respiratory 18 18 18 Rate Blood Pressure 122/77 133/80 130/84 O2 Sat by Pulse 95 95 Oximetry (%) 06/07/17 06/07/17 06/07/17 09:00 10:00 13:40 Temperature 97.5 F L 98 F Pulse Rate 75 97 H Respiratory 18 18 18 Rate Blood Pressure 125/83 132/87 O2 Sat by Pulse 98 Oximetry (%) GENERAL: AAO x3, NAD HEAD: NC,AT EYES: PERRLA, EOMI, anicteric sclera. EARS, NOSE, THROAT: Moist mucous membranes. NECK: supple with no jvd LUNGS: CTAB, No wheezing or rales. HEART:RRR, S1S2 normal , no M/G/R ABDOMEN: soft, NT, ND, BS(+) MUSCULOSKELETAL: R CVA tenderness. UPPER EXTREMITIES: 2+ pulses, warm, well-perfused. No cyanosis. No clubbing. Cap refill <2 seconds. No peripheral edema. LOWER EXTREMITIES: 2+ pulses, warm, well-perfused. No calf tenderness. No peripheral edema. NEUROLOGICAL: Cranial nerves II-XII intact. Normal speech. gait not observed Laboratory Results - last 24 hr 06/06/17 06/06/17 06/06/17 15:20 17:30 18:10 WBC RBC Hgb Hct MCV MCH MCHC RDW Plt Count MPV Neutrophils % Lymphocytes % Monocytes % Eosinophils % Differential Comment Platelet Estimate Sodium 142 Potassium 5.8 H Chloride 112 H Carbon Dioxide 21 D Anion Gap 9 BUN 79 H Creatinine 5.9 H Creat Clearance w eGFR POC Glucometer Random Glucose 51 L D Calcium 9.3 Phosphorus Magnesium Total Bilirubin AST ALT Alkaline Phosphatase Total Protein Albumin Urine Color Ltyellow Urine Appearance Slcloudy Urine pH 5.0 Ur Specific [place] 1.020 Urine Protein 1+ H Urine Glucose (UA) Negative Urine Ketones Negative Urine Blood 3+ H Urine Nitrite Negative Urine Bilirubin Negative Urine Urobilinogen Negative Ur Leukocyte Esterase 2+ H Urine RBC 177 Urine WBC 53 Urine Mucus Rare Blood Type B POSITIVE 06/06/17 06/06/17 06/07/17 18:49 21:30 05:45 WBC 11.8 H RBC 5.57 Hgb 14.1 Hct 43.3 MCV 77.8 L MCH 25.4 L MCHC 32.7 RDW 16.3 H Plt Count 275 MPV 8.4 Neutrophils % 72.0 Lymphocytes % 20.0 D Monocytes % 6.0 Eosinophils % 2.0 Differential Comment Manual diff done Platelet Estimate Adequate Sodium 140 Potassium 5.9 H Chloride 112 H Carbon Dioxide 17 L Anion Gap 11 BUN 78 H Creatinine 6.0 H Creat Clearance w eGFR POC Glucometer 88 Random Glucose 239 H D Calcium 8.9 Phosphorus Magnesium Total Bilirubin AST ALT Alkaline Phosphatase Total Protein Albumin Urine Color Urine Appearance Urine pH Ur Specific [place] Urine Protein Urine Glucose (UA) Urine Ketones Urine Blood Urine Nitrite Urine Bilirubin Urine Urobilinogen Ur Leukocyte Esterase Urine RBC Urine WBC Urine Mucus Blood Type 06/07/17 05:45 WBC RBC Hgb Hct MCV MCH MCHC RDW Plt Count MPV Neutrophils % Lymphocytes % Monocytes % Eosinophils % Differential Comment Platelet Estimate Sodium 143 Potassium 5.9 H Chloride 113 H Carbon Dioxide 19 L Anion Gap 11 BUN 52 H D Creatinine 2.7 H D Creat Clearance w eGFR 24.94 POC Glucometer Random Glucose 100 D Calcium 9.4 Phosphorus 4.8 Magnesium 2.1 Total Bilirubin 0.9 D AST 13 L D ALT 17 Alkaline Phosphatase 98 Total Protein 6.8 Albumin 3.4 Urine Color Urine Appearance Urine pH Ur Specific [place] Urine Protein Urine Glucose (UA) Urine Ketones Urine Blood Urine Nitrite Urine Bilirubin Urine Urobilinogen Ur Leukocyte Esterase Urine RBC Urine WBC Urine Mucus Blood Type Active Medications Generic Name Dose Route Start Last Admin Trade Name Freq PRN Reason Stop Dose Admin Ceftriaxone Sodium 50 mls @ 100 mls/hr 06/07/17 06:40 06/07/17 09:49 Rocephin 1gm Ivpb (Pre-Docked) IVPB 100 mls/hr DAILY SILVANA Administration Sodium Chloride 1,000 mls @ 100 mls/hr 06/07/17 16:30 1/2 Normal Saline IV ASDIR SILVANA Morphine Sulfate 4 mg 06/06/17 17:59 06/07/17 06:24 Morphine Injection - IVPUSH 4 mg Q4H PRN Administration PAIN Ondansetron HCl 4 mg 06/06/17 15:38 Zofran Injection IVPB Q6H PRN NAUSEA ASSESSMENT/PLAN: 51 yo M with significant PMHx of polycythemia (has regular phlebotomy treatments , on Ramipril) and nephrolithiasis s/p multiple lithotripsies referred from his urologist's for 0.9mm right UPJ calculus and left staghorn calculus with hydronephrosis and elevated creatinine and potassium. Dispo: We will continue to follow the patient. Thank you for this consultative opportunity. Problem List - Problems (1) Acute kidney injury Assessment/Plan: * Kidney function improving with IV volume expansion. * Atrophic left kidney seen on imaging.with staghorn calculi. * Most likely secondary to obstruction. * Will continue with IVF of 1/2NS @ 100ml/hr * repeat BMP now and in AM * pending resolution of Hyperkalemia to go to OR. (2) Hyperkalemia Assessment/Plan: * Will repeat BMP stat * has been receiving IVF therefore pending repeat K+ will decide on further treatment. * fluids switched 1/2NS @ 100ml/hr. (3) Kidney stones Assessment/Plan: * awaiting potassium to normalize to go to OR for lithotripsy. (4) Obstruction of kidney Visit type - Emergency Visit Emergency Visit: Yes ED Registration Date: 06/06/17 Care time: The patient presented to the Emergency Department on the above date and was hospitalized for further evaluation of their emergent condition. - New Patient This patient is new to me today: No - Critical Care Critical Care patient: No
[2017-06-07 18:16] LABS: ANION GAP 11 (8-16); CALCIUM 8.7 mg/dL (8.5-10.1); CO2 22 mmol/L (21-32); CREATININE 1.4 mg/dL (0.7-1.3); GLUCOSE,RANDOM 122 mg/dL (74-106)
--- NOTE | 2017-06-07 18:47 | PN ---
Physical Exam: SUBJECTIVE: Patient seen and examined. Has a feeling of abdominal fullness. OBJECTIVE: Vital Signs Period Temp Pulse Resp BP Sys/Aguirre Pulse Ox Last 24 Hr 97.4 F-98 F 64-97 17-20 116-133/71-87 95-98 GENERAL: The patient is awake, alert, and fully oriented, in no acute distress. HEAD: Normal with no signs of trauma. EYES: PERRL, extraocular movements intact, sclera anicteric, conjunctiva clear. No ptosis. LUNGS: Breath sounds equal, clear to auscultation bilaterally, no wheezes, no crackles, no accessory muscle use. HEART: Regular rate and rhythm, S1, S2 without murmur, rub or gallop. ABDOMEN: Soft, not tender, normoactive bowel sounds, no guarding, no rebound, not tympanic; no CVA tenderness; neprhostomy tube draining yellow urine EXTREMITIES: 2+ pulses, warm, well-perfused, no edema. NEUROLOGICAL: Cranial nerves II through XII grossly intact. Normal speech, gait not observed. Moves all extremities freely. Laboratory Results - last 24 hr 06/06/17 06/06/17 06/06/17 15:20 17:30 18:10 WBC RBC Hgb Hct MCV MCH MCHC RDW Plt Count MPV Neutrophils % Lymphocytes % Monocytes % Eosinophils % Differential Comment Platelet Estimate Sodium 142 Potassium 5.8 H Chloride 112 H Carbon Dioxide 21 D Anion Gap 9 BUN 79 H Creatinine 5.9 H Creat Clearance w eGFR POC Glucometer Random Glucose 51 L D Calcium 9.3 Phosphorus Magnesium Total Bilirubin AST ALT Alkaline Phosphatase Total Protein Albumin Urine Color Ltyellow Urine Appearance Slcloudy Urine pH 5.0 Ur Specific [place] 1.020 Urine Protein 1+ H Urine Glucose (UA) Negative Urine Ketones Negative Urine Blood 3+ H Urine Nitrite Negative Urine Bilirubin Negative Urine Urobilinogen Negative Ur Leukocyte Esterase 2+ H Urine RBC 177 Urine WBC 53 Urine Mucus Rare Blood Type B POSITIVE 06/06/17 06/06/17 06/07/17 18:49 21:30 05:45 WBC 11.8 H RBC 5.57 Hgb 14.1 Hct 43.3 MCV 77.8 L MCH 25.4 L MCHC 32.7 RDW 16.3 H Plt Count 275 MPV 8.4 Neutrophils % 72.0 Lymphocytes % 20.0 D Monocytes % 6.0 Eosinophils % 2.0 Differential Comment Manual diff done Platelet Estimate Adequate Sodium 140 Potassium 5.9 H Chloride 112 H Carbon Dioxide 17 L Anion Gap 11 BUN 78 H Creatinine 6.0 H Creat Clearance w eGFR POC Glucometer 88 Random Glucose 239 H D Calcium 8.9 Phosphorus Magnesium Total Bilirubin AST ALT Alkaline Phosphatase Total Protein Albumin Urine Color Urine Appearance Urine pH Ur Specific [place] Urine Protein Urine Glucose (UA) Urine Ketones Urine Blood Urine Nitrite Urine Bilirubin Urine Urobilinogen Ur Leukocyte Esterase Urine RBC Urine WBC Urine Mucus Blood Type 06/07/17 06/07/17 05:45 17:00 WBC RBC Hgb Hct MCV MCH MCHC RDW Plt Count MPV Neutrophils % Lymphocytes % Monocytes % Eosinophils % Differential Comment Platelet Estimate Sodium 143 141 Potassium 5.9 H 4.7 D Chloride 113 H 108 H Carbon Dioxide 19 L 22 Anion Gap 11 11 BUN 52 H D 31 H D Creatinine 2.7 H D 1.4 H D Creat Clearance w eGFR 24.94 POC Glucometer Random Glucose 100 D 122 H D Calcium 9.4 8.7 Phosphorus 4.8 Magnesium 2.1 Total Bilirubin 0.9 D AST 13 L D ALT 17 Alkaline Phosphatase 98 Total Protein 6.8 Albumin 3.4 Urine Color Urine Appearance Urine pH Ur Specific [place] Urine Protein Urine Glucose (UA) Urine Ketones Urine Blood Urine Nitrite Urine Bilirubin Urine Urobilinogen Ur Leukocyte Esterase Urine RBC Urine WBC Urine Mucus Blood Type Active Medications Generic Name Dose Route Start Last Admin Trade Name Freq PRN Reason Stop Dose Admin Ceftriaxone Sodium 50 mls @ 100 mls/hr 06/07/17 06:40 06/07/17 09:49 Rocephin 1gm Ivpb (Pre-Docked) IVPB 100 mls/hr DAILY SILVANA Administration Sodium Chloride 1,000 mls @ 100 mls/hr 06/07/17 16:30 1/2 Normal Saline IV ASDIR SILVANA Morphine Sulfate 4 mg 06/06/17 17:59 06/07/17 06:24 Morphine Injection - IVPUSH 4 mg Q4H PRN Administration PAIN Ondansetron HCl 4 mg 06/06/17 15:38 Zofran Injection IVPB Q6H PRN NAUSEA ASSESSMENT/PLAN 51 year-old male with a PMH of polycythemia and nephrolithiasis, sent to ED by his urologist for right obstructing ureteral stone and for a left renal staghorn calculus. (1) Acute kidney injury -Likely secondary to obstructive ureteral stone and left renal staghorn calculus -Cr 6.0 on admission, now 2.7; baseline 1.2 -continue IV fluids (2) Hyperkalemia -No EKG changes -K 6.7 on admission, given insulin/dextrose/sodium bicarb; improved to 5.9 (3) Right hydronephrosis secondary to obstructing ureteral stone s/p right nephrostomy tube 06/06 -draining clear yellow urine -plan is to place ureteral stent on Sunday (4) UTI -pyuria -culture pending -continue ceftriaxone (day #2) (4) Polycythemia -No active issues -Hold Ramipril until MENDOZA resolves (5) Mobitz Type I heart block --per cardiology, tele showed episode of mobitz I second degree avb during sleep -->likely due to increased vagal tone during sleep and possibly BAL --no particular interventions/treatment needed to look for BAL --echo ordered --check TSH --outpatient workup for possible BAL F/E/N Fluids: D5NS@75mL/hr Electrolytes: replete as indicated Nutrition: renal low K diet DVT prophylaxis: subq heparin, oob, ambulation Dispo: continues to require inpatient care. Full code. Visit type - Emergency Visit Emergency Visit: Yes ED Registration Date: 06/06/17 Care time: The patient presented to the Emergency Department on the above date and was hospitalized for further evaluation of their emergent condition. - New Patient This patient is new to me today: Yes Date on this admission: 06/07/17 - Critical Care Critical Care patient: No
--- NOTE | 2017-06-07 19:10 | PN ---
Teaching Attending Note Name of Resident: Clayton Bustamante (Nephrology) ATTENDING PHYSICIAN STATEMENT I saw and evaluated the patient. I reviewed the resident's note and discussed the case with the resident. I agree with the resident's findings and plan as documented. Nephrology Consult Please see consult filled out by resident. Pt is a 51 year old male with pmhx of polycythemia and nephrolithiasis who was sent in from urology for stone removal. He was found to be in acute renal failure and we were called to evaluate him. He was also found to be hyperkalemic. He has history of nephrolithiasis. He says he has an atrophic left kidney. He feels better today than he did yesterday. Pmhx nephrolithiasis and polycythemia pshyx lithotripsy soc neg family hx denies ros neg aside from hpi Current Medications Generic Name Dose Route Start Last Admin Trade Name Freq PRN Reason Stop Dose Admin Heparin Sodium (Porcine) 5,000 unit 06/07/17 22:00 Heparin - SQ BID SILVANA Ceftriaxone Sodium 50 mls @ 100 mls/hr 06/07/17 06:40 06/07/17 09:49 Rocephin 1gm Ivpb (Pre-Docked) IVPB 100 mls/hr DAILY SILVANA Administration Sodium Chloride 1,000 mls @ 100 mls/hr 06/07/17 16:30 1/2 Normal Saline IV ASDIR SILVANA Morphine Sulfate 4 mg 06/06/17 17:59 06/07/17 06:24 Morphine Injection - IVPUSH 4 mg Q4H PRN Administration PAIN Ondansetron HCl 4 mg 06/06/17 15:38 Zofran Injection IVPB Q6H PRN NAUSEA Current Active Problems Acute kidney injury (Acute) Hyperkalemia (Acute) Kidney stones (Acute) Obstruction of kidney (Acute) Polycythemia Laboratory Tests 06/06/17 06/06/17 06/06/17 14:45 15:20 17:30 Sodium 137 Potassium 6.7 H* 5.8 H Creatinine 6.0 H 5.9 H Urine Protein 1+ H Urine Blood 3+ H Ur Leukocyte Esterase 2+ H Urine RBC 177 Urine WBC 53 06/06/17 06/07/17 06/07/17 21:30 05:45 17:00 Sodium Potassium 5.9 H 5.9 H 4.7 D Creatinine 6.0 H 2.7 H D 1.4 H D Urine Protein Urine Blood Ur Leukocyte Esterase Urine RBC Urine WBC Last Vital Signs Temp Pulse Resp BP Pulse Ox 98 F 97 H 18 132/87 98 06/07/17 13:40 06/07/17 13:40 06/07/17 13:40 06/07/17 13:40 06/07/17 09:00 cardio s1s2 reg pulm clear Gi soft right nephrostomy tube ext neg edema neuro awake and alert skin neg rash Impression 1. MENDOZA resolving 2. obstructive uropathy 3. CKD 4. nephrolithiasis 5. polycythemia 6. hyperkalemia Plan - ordered stat labs and reviewed them, potassium is improved - renal function is improving - changed fluids to 1/2 ns - repeat labs in am - monitor lytes - will need outpt follow up Dr Hall
[2017-06-07] MEDS: SODIUM CHLORIDE 0.45% 1,000 ML IV SCH (19:45)
[2017-06-07] MEDS: HEPARIN NA (PORCINE) 5,000 UNITS/ML 1ML VIAL SQ SCH (21:49)
[2017-06-08 07:44] LABS: ANION GAP 6 (8-16); CALCIUM 9.5 mg/dL (8.5-10.1); CO2 25 mmol/L (21-32); CREATININE 1.2 mg/dL (0.7-1.3); GLUCOSE,RANDOM 88 mg/dL (74-106)
[2017-06-08 07:54] LABS: THYROID STIMULATING HORMONE 2.25 uIU/ml (0.358-3.74)
--- NOTE | 2017-06-08 08:26 | CONSULT ---
Consult - text type - Consultation Consultation Note: CC: UTI/acute renal failure/atrophic left kidney/right ureteral obsturction secondary to urolithiasis HPI: Patient improving. Creatinine is normalizing. Cardiology and nephrology consults appreciated. Patient is with mild right side flank pain discomfort. PE afeb abd-soft, nontender; mild right CVAT imp uti acute renal failure right hydro secondary to renal/ureteral stones s/p right percutaneous nephrostomy plan continue antibiotics follow renal function for sunday for internalization of stent and right ureteroscopic stone basketing discussed x 25 minutes
--- NOTE | 2017-06-08 08:34 | PN ---
Physical Exam: SUBJECTIVE: Patient seen and examined. Complaining of bilateral flank tenderness , worse with coughing. Has had two episodes of sweats today. OBJECTIVE: Vital Signs Period Temp Pulse Resp BP Sys/Aguirre Pulse Ox Last 24 Hr 97.5 F-98.7 F 75-97 18-18 125-147/83-95 98-98 GENERAL: The patient is awake, alert, and fully oriented, in no acute distress. HEAD: Normal with no signs of trauma. EYES: PERRL, extraocular movements intact, sclera anicteric, conjunctiva clear. No ptosis. LUNGS: Breath sounds equal, clear to auscultation bilaterally, no wheezes, no crackles, no accessory muscle use. HEART: Regular rate and rhythm, S1, S2 without murmur, rub or gallop. ABDOMEN: Soft, not tender, normoactive bowel sounds, no guarding, no rebound, not tympanic; +right CVA tenderness; nephrostomy tube draining yellow urine EXTREMITIES: 2+ pulses, warm, well-perfused, no edema. NEUROLOGICAL: Cranial nerves II through XII grossly intact. Normal speech, gait not observed. Moves all extremities freely. Laboratory Results - last 24 hr 06/07/17 06/07/17 06/07/17 05:45 05:45 17:00 WBC 11.8 H RBC 5.57 Hgb 14.1 Hct 43.3 MCV 77.8 L MCH 25.4 L MCHC 32.7 RDW 16.3 H Plt Count 275 MPV 8.4 Neutrophils % 72.0 Lymphocytes % 20.0 D Monocytes % 6.0 Eosinophils % 2.0 Differential Comment Manual diff done Platelet Estimate Adequate Sodium 143 141 Potassium 5.9 H 4.7 D Chloride 113 H 108 H Carbon Dioxide 19 L 22 Anion Gap 11 11 BUN 52 H D 31 H D Creatinine 2.7 H D 1.4 H D Creat Clearance w eGFR 24.94 Random Glucose 100 D 122 H D Calcium 9.4 8.7 Phosphorus 4.8 Magnesium 2.1 Total Bilirubin 0.9 D AST 13 L D ALT 17 Alkaline Phosphatase 98 Total Protein 6.8 Albumin 3.4 Active Medications Generic Name Dose Route Start Last Admin Trade Name Freq PRN Reason Stop Dose Admin Heparin Sodium (Porcine) 5,000 unit 06/07/17 22:00 06/07/17 21:49 Heparin - SQ 5,000 unit BID SILVANA Administration Ceftriaxone Sodium 50 mls @ 100 mls/hr 06/07/17 06:40 06/07/17 09:49 Rocephin 1gm Ivpb (Pre-Docked) IVPB 100 mls/hr DAILY SILVANA Administration Sodium Chloride 1,000 mls @ 75 mls/hr 06/07/17 19:16 06/07/17 19:45 1/2 Normal Saline IV 75 mls/hr ASDIR SILVANA Administration Morphine Sulfate 4 mg 06/06/17 17:59 06/07/17 21:49 Morphine Injection - IVPUSH 4 mg Q4H PRN Administration PAIN Ondansetron HCl 4 mg 06/06/17 15:38 Zofran Injection IVPB Q6H PRN NAUSEA ASSESSMENT/PLAN 51 year-old male with a PMH of polycythemia and nephrolithiasis, sent to ED by his urologist for right obstructing ureteral stone and for a left renal staghorn calculus. Acute kidney injury, resolved -Cr 6.0 on admission, now at baseline 1.2 Hyperkalemia, resolved Right hydronephrosis secondary to obstructing ureteral stone s/p right nephrostomy tube 06/06 -draining clear yellow urine -plan is to place ureteral stent on Sunday UTI -pyuria -culture negative -afebrile, WBC trending down -will continue empiric ceftriaxone (day #3) pending placement of ureteral stent Polycythemia -No active issues -will continue to hold lisinopril Mobitz Type I heart block --per cardiology, tele showed episode of mobitz I second degree avb during sleep -->likely due to increased vagal tone during sleep and possibly BAL --no particular interventions/treatment needed --06/08 Echo: LV normal; RV normal; trace TR --TSH wnl --outpatient workup for possible BAL Bilateral calf tenderness -US BLE ordered F/E/N Fluids: PO intake adequate Electrolytes: replete as indicated Nutrition: renal low K diet DVT prophylaxis: subq heparin, oob, ambulation Dispo: continues to require inpatient care. Full code. Visit type - Emergency Visit Emergency Visit: Yes ED Registration Date: 06/06/17 Care time: The patient presented to the Emergency Department on the above date and was hospitalized for further evaluation of their emergent condition. - New Patient This patient is new to me today: No - Critical Care Critical Care patient: No
[2017-06-08] MEDS: HEPARIN NA (PORCINE) 5,000 UNITS/ML 1ML VIAL SQ SCH (09:39)
[2017-06-08] MEDS: CEFTRIAXONE 50 ML IVPB SCH (09:39)
[2017-06-08] MEDS: SODIUM CHLORIDE 0.45% 1,000 ML IV SCH (09:42)
--- NOTE | 2017-06-08 11:24 | PN ---
Progress Note (short form) - Note Progress Note: s: feeling better, no cp sob palps dizzy o: Vital Signs Period Temp Pulse Resp BP Sys/Aguirre Pulse Ox Last 24 Hr 97.8 F-98.7 F 80-97 18-18 128-147/87-95 98-98 nad no jvd rrr s1s2 no mrg cta bl nl eff aaox3 no le e/c/c abd nt nd pos bs no jaundice diaphoresis Current Medications Generic Name Dose Route Start Last Admin Trade Name Freq PRN Reason Stop Dose Admin Heparin Sodium (Porcine) 5,000 unit 06/07/17 22:00 06/08/17 09:39 Heparin - SQ 5,000 unit BID SILVANA Administration Ceftriaxone Sodium 50 mls @ 100 mls/hr 06/07/17 06:40 06/08/17 09:39 Rocephin 1gm Ivpb (Pre-Docked) IVPB 100 mls/hr DAILY SILVANA Administration Morphine Sulfate 4 mg 06/06/17 17:59 06/07/17 21:49 Morphine Injection - IVPUSH 4 mg Q4H PRN Administration PAIN Ondansetron HCl 4 mg 06/06/17 15:38 Zofran Injection IVPB Q6H PRN NAUSEA CBC, BMP 06/07/17 05:45 06/08/17 05:35 tele: sr ecg 06/06/17: sr, nl intervals, no ischemic changes echo 05/2017: nl lv/rv, no sig valve path a/p: 51 m hx kidney stones sent to er 2/2 renal stones and hari. renal stones, hari, hyperkalemia: -cont ivfs -renal following -cr improved, k improving -Had nephrostomy tube and planned for ureter stent next week. -no cardiac contraindications (low risk) for the planned procedure bradycardia, wenckebach, mobitz I: -tele shows episode of mobitz I second degree avb during sleep-->likely due to increased vagal tone during sleep and possibly BAL. No particular interventions /treatment needed for wenckebach but pt should have sleep study as outpt to look for BAL -echo, tsh unremarkable here -can dc tele
--- NOTE | 2017-06-08 16:14 | PN ---
Progress Note (short form) - Note Progress Note: RENAL Pt awake and alert comfortable by bedside c/o cramping in lower extremities and soreness of muscles perc is working well says he was taking ramipril for polycythemia, but the phlebotomies were what helped him Last Vital Signs Temp Pulse Resp BP Pulse Ox 98.2 F 95 H 18 146/94 98 06/08/17 13:50 06/08/17 13:50 06/08/17 13:50 06/08/17 13:50 06/08/17 09:00 lungs clear cvs s1s2 rr abd soft ext no edema, has good pulses bilat neuro a+ox3 CBC, BMP 06/07/17 05:45 06/08/17 05:35 Current Medications Generic Name Dose Route Start Last Admin Trade Name Freq PRN Reason Stop Dose Admin Heparin Sodium (Porcine) 5,000 unit 06/07/17 22:00 06/08/17 09:39 Heparin - SQ 5,000 unit BID SILVANA Administration Ceftriaxone Sodium 50 mls @ 100 mls/hr 06/07/17 06:40 06/08/17 09:39 Rocephin 1gm Ivpb (Pre-Docked) IVPB 100 mls/hr DAILY SILVANA Administration Morphine Sulfate 4 mg 06/06/17 17:59 06/07/17 21:49 Morphine Injection - IVPUSH 4 mg Q4H PRN Administration PAIN Ondansetron HCl 4 mg 06/06/17 15:38 Zofran Injection IVPB Q6H PRN NAUSEA Impression 1. 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 obstructive uropathy 3. CKD 4. nephrolithiasis 5. polycythemia- 6. hyperkalemia- may have been worsened by ramipril which was used for polycythemia 7 likely has ckd from nephrolithiasis Plan - keep off ramipril, would favor phlebotomies as necessary - repeat labs in am - monitor lytes - will need outpt follow up - urology to internalize the stent next week - must aggressively deal with these calculi since he already lost one kidney MV
[2017-06-08] MEDS ORDERED: HEPARIN NA (PORCINE) 5,000 UNITS/ML 1ML VIAL IVPUSH PRN ×3 (18:28→19:00)
[2017-06-08] MEDS ORDERED: HEPARIN INFUSION - 500 ML IVPB SCH (18:30)
[2017-06-08] MEDS ORDERED: OXYCODONE/APAP 5/325MG COMBO TABLET PO PRN (19:39)
--- NOTE | 2017-06-08 19:46 | HOSP ---
Subjective - Review of Symptoms Events since last encounter: Patient this morning reported bilateral calf "tightness" which he has had x 1 week. US of b/l LE performed this afternoon was positive for bilateral deep calf DVTs (wet read). Ordered heparin drip. 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 Boo. Patient is Wells score 4.5, moderate risk for PE. Discussed CTA with Dr. Glynn (nephrology) who does not want patient to receive IV contrast due to his recent MENDOZA. Will request pulmonary consult and VQ scan. Note: --06/07 Echo: LV normal; RV normal; trace TR Physical Examination Vital Signs: Vital Signs Temperature 98.8 F 06/08/17 17:00 Pulse Rate 95 H 06/08/17 17:00 Respiratory Rate 18 06/08/17 17:00 Blood Pressure 133/80 06/08/17 17:00 O2 Sat by Pulse Oximetry (%) 98 06/08/17 09:00 Labs: CBC, BMP 06/07/17 05:45 06/08/17 05:35
[2017-06-08] MEDS: HEPARIN INFUSION - 500 ML IVPB SCH (20:16)
[2017-06-09] MEDS: oxyCODONE HCL 5 MG TABLET PO PRN ×3 (05:43→21:56)
[2017-06-09] MEDS: ACETAMINOPHEN 325 MG TABLET (FP) PO PRN ×3 (05:53→21:56)
[2017-06-09] MEDS: CEFTRIAXONE 50 ML IVPB SCH (09:05)
--- NOTE | 2017-06-09 10:08 | PN ---
Progress Note, Physician History of Present Illness: PULMONARY CONSULTATION DICTATED 01/10/17 IMP BILATERAL DVT/ R/O PE MENDOZA OBSTRUCTIVE UROPATHY S/P NEPHROSTOMY POLYCYTHEMIA PLAN ANTICOAGULATION V/Q SCAN CHEST X-RAY ECHO CONSIDER TEMPORARY IVC FILTER PRIOR TO SURGERY DR LAURA - Current Medication List Current Medications: Active Medications Acetaminophen (Tylenol -) 325 mg PO Q6H PRN PRN Reason: PAIN LEVEL 6-10 Last Admin: 06/09/17 05:53 Dose: 325 mg Heparin Sodium (Porcine) (Heparin -) 1,000 unit IVPUSH PRN PRN PRN Reason: Heparin Heparin Sodium (Porcine) (Heparin -) 5,000 unit IVPUSH PRN PRN PRN Reason: Heparin Last Admin: 06/09/17 03:38 Dose: 5,000 unit Ceftriaxone Sodium (Rocephin 1gm Ivpb (Pre-Docked)) 50 mls @ 100 mls/hr IVPB DAILY SILVANA Last Admin: 06/09/17 09:05 Dose: 100 mls/hr Heparin Sodium/Dextrose (Heparin Infusion -) 500 mls @ 20 mls/hr IVPB TITR SILVANA ; 1,000 UNITS/HR PRN Reason: Protocol Last Titration: 06/09/17 03:37 Dose: 1,150 units/hr Ondansetron HCl (Zofran Injection) 4 mg IVPB Q6H PRN PRN Reason: NAUSEA Oxycodone HCl (Roxicodone -) 5 mg PO Q6H PRN PRN Reason: PAIN LEVEL 6-10 Last Admin: 06/09/17 05:43 Dose: 5 mg - Objective Vital Signs: Vital Signs Temperature 97.5 F L 06/09/17 09:00 Pulse Rate 90 06/09/17 09:00 Respiratory Rate 20 06/09/17 09:00 Blood Pressure 136/96 06/09/17 09:00 O2 Sat by Pulse Oximetry (%) 97 06/09/17 09:00 Labs: CBC, BMP 06/07/17 05:45 06/08/17 05:35 INR, PTT INR 1.12 (0.82-1.09) 06/06/17 14:45
--- NOTE | 2017-06-09 10:11 | PN ---
Progress Note (short form) - Note Progress Note: ULMONARY CONSULTATION DICTATED 01/10/17 IMP BILATERAL DVT/ R/O PE MENDOZA OBSTRUCTIVE UROPATHY S/P NEPHROSTOMY POLYCYTHEMIA PLAN ANTICOAGULATION V/Q SCAN CHEST X-RAY ECHO CONSIDER TEMPORARY IVC FILTER PRIOR TO SURGERY DR LAURA Problem List - Problems (1) Acute kidney injury Code(s): N17.9 - ACUTE KIDNEY FAILURE, UNSPECIFIED (2) Creatinine elevation Code(s): R79.89 - OTHER SPECIFIED ABNORMAL FINDINGS OF BLOOD CHEMISTRY (3) Hyperkalemia Code(s): E87.5 - HYPERKALEMIA (4) Kidney stones Code(s): N20.0 - CALCULUS OF KIDNEY (5) Obstruction of kidney Code(s): N28.89 - OTHER SPECIFIED DISORDERS OF KIDNEY AND URETER (6) Polycythemia Code(s): D75.1 - SECONDARY POLYCYTHEMIA (7) Dvt femoral (deep venous thrombosis) Code(s): I82.419 - ACUTE EMBOLISM AND THROMBOSIS OF UNSPECIFIED FEMORAL VEIN
--- NOTE | 2017-06-09 10:55 | PN ---
Progress Note (short form) - Note Progress Note: s: feeling better, no cp sob palps dizzy o: Vital Signs Period Temp Pulse Resp BP Sys/Aguirre Pulse Ox Last 24 Hr 97.4 F-98.8 F 86-107 18-20 133-146/80-98 95-97 nad no jvd rrr s1s2 no mrg cta bl nl eff aaox3 no le e/c/c abd nt nd pos bs no jaundice diaphoresis Current Medications Generic Name Dose Route Start Last Admin Trade Name Freq PRN Reason Stop Dose Admin Acetaminophen 325 mg 06/08/17 19:48 06/09/17 05:53 Tylenol - PO 325 mg Q6H PRN Administration PAIN LEVEL 6-10 Heparin Sodium (Porcine) 1,000 unit 06/08/17 19:00 Heparin - IVPUSH PRN PRN Heparin Heparin Sodium (Porcine) 5,000 unit 06/08/17 19:00 06/09/17 03:38 Heparin - IVPUSH 5,000 unit PRN PRN Administration Heparin Ceftriaxone Sodium 50 mls @ 100 mls/hr 06/07/17 06:40 06/09/17 09:05 Rocephin 1gm Ivpb (Pre-Docked) IVPB 100 mls/hr DAILY SILVANA Administration Heparin Sodium/Dextrose 500 mls @ 20 mls/hr 06/08/17 19:00 06/09/17 03:37 Heparin Infusion - IVPB 1,150 units/hr TITR SILVANA Titration Protocol 1,000 UNITS/HR Ondansetron HCl 4 mg 06/06/17 15:38 Zofran Injection IVPB Q6H PRN NAUSEA Oxycodone HCl 5 mg 06/08/17 19:48 06/09/17 05:43 Roxicodone - PO 5 mg Q6H PRN Administration PAIN LEVEL 6-10 CBC, BMP 06/07/17 05:45 06/08/17 05:35 tele: sr ecg 06/06/17: sr, nl intervals, no ischemic changes echo 05/2017: nl lv/rv, no sig valve path a/p: 51 m hx kidney stones sent to er 2/2 renal stones and hari. renal stones, hari, hyperkalemia: -cont ivfs -renal following -cr improved, k improving -Had nephrostomy tube and planned for ureter stent next week. bradycardia, wenckebach, mobitz I: -tele shows episode of mobitz I second degree avb during sleep-->likely due to increased vagal tone during sleep and possibly BAL. No particular interventions /treatment needed for wenckebach but pt should have sleep study as outpt to look for BAL -echo, tsh unremarkable here dvts: -found to have bl dvts here, now on hep gtt -planned for v/q scan to eval for pe
--- NOTE | 2017-06-09 11:28 | PN ---
Physical Exam: SUBJECTIVE: Patient seen and examined. He says 2 weeks ago he started having SOB. His lower ext are less tight today, hes able to walk normally OBJECTIVE: Vital Signs Period Temp Pulse Resp BP Sys/Aguirre Pulse Ox Last 24 Hr 97.4 F-98.8 F 86-107 18-20 133-146/80-98 95-97 PE Neuro: alert, awake, c2-12intact Pulm: CTAB CV: s1 s2 rrr no mrg Abd: s nt nd + bs : R flank nephrostomy + drainage Ext: no le swelling, LLE calf tightness, no erythema Laboratory Results - last 24 hr 06/08/17 06/09/17 19:30 02:50 PTT (Actin FS) 34.8 H 38.3 H Active Medications Generic Name Dose Route Start Last Admin Trade Name Freq PRN Reason Stop Dose Admin Acetaminophen 325 mg 06/08/17 19:48 06/09/17 05:53 Tylenol - PO 325 mg Q6H PRN Administration PAIN LEVEL 6-10 Heparin Sodium (Porcine) 1,000 unit 06/08/17 19:00 Heparin - IVPUSH PRN PRN Heparin Heparin Sodium (Porcine) 5,000 unit 06/08/17 19:00 06/09/17 03:38 Heparin - IVPUSH 5,000 unit PRN PRN Administration Heparin Ceftriaxone Sodium 50 mls @ 100 mls/hr 06/07/17 06:40 06/09/17 09:05 Rocephin 1gm Ivpb (Pre-Docked) IVPB 100 mls/hr DAILY SILVANA Administration Heparin Sodium/Dextrose 500 mls @ 20 mls/hr 06/08/17 19:00 06/09/17 03:37 Heparin Infusion - IVPB 1,150 units/hr TITR SILVANA Titration Protocol 1,000 UNITS/HR Ondansetron HCl 4 mg 06/06/17 15:38 Zofran Injection IVPB Q6H PRN NAUSEA Oxycodone HCl 5 mg 06/08/17 19:48 06/09/17 05:43 Roxicodone - PO 5 mg Q6H PRN Administration PAIN LEVEL 6-10 Imaging: - ECHO 06/08: LV normal; RV normal; trace TR Assessment: 51 year old male with a PMH of polycythemia and nephrolithiasis, sent to ED by his urologist for right obstructing ureteral stone and for a left renal staghorn calculus. Plan: 1. Bilateral DVT's - Suspect d/t hx of polycythemia vera - Continue heparin gtt - Will go for V/Q scan r/p PE and IVC filter Sunday in IR - D/w Pulmonary, IR 2. MENDOZA - Due to obstructive uropathy - MENDOZA resolved - Hold lisinopril 3. Hyperkalemia - Elevated today - Check AM BMP - Consider gentle hydration pending 4. Right hydronephrosis secondary to obstructing ureteral stone s/p right nephrostomy tube 06/06 - Plan for ureteral stent on Sunday 5. UTI - Repeat UA eval pyuria - Urine cx negative - Cont ceftriaxone (day #4), await UA results 6. Polycythemia - No active issues, lat seen Dr. Madrigal 1 month ago 7. Mobitz Type I heart block - Per cardiology, tele showed episode of mobitz I second degree avb during sleep - - Likely due to increased vagal tone during sleep and possibly BAL - Outpatient workup for possible BAL Visit type - Emergency Visit Emergency Visit: Yes ED Registration Date: 06/06/17 Care time: The patient presented to the Emergency Department on the above date and was hospitalized for further evaluation of their emergent condition. - New Patient This patient is new to me today: Yes Date on this admission: 06/09/17 - Critical Care Critical Care patient: No
--- NOTE | 2017-06-09 12:12 | PN ---
Progress Note, Physician History of Present Illness: Renal f/u Patient in no distress Today's labs pending IV Heparin for DVT For IVC Filter next week - Current Medication List Current Medications: Active Medications Acetaminophen (Tylenol -) 325 mg PO Q6H PRN PRN Reason: PAIN LEVEL 6-10 Last Admin: 06/09/17 05:53 Dose: 325 mg Heparin Sodium (Porcine) (Heparin -) 1,000 unit IVPUSH PRN PRN PRN Reason: Heparin Heparin Sodium (Porcine) (Heparin -) 5,000 unit IVPUSH PRN PRN PRN Reason: Heparin Last Admin: 06/09/17 03:38 Dose: 5,000 unit Ceftriaxone Sodium (Rocephin 1gm Ivpb (Pre-Docked)) 50 mls @ 100 mls/hr IVPB DAILY SILVANA Last Admin: 06/09/17 09:05 Dose: 100 mls/hr Heparin Sodium/Dextrose (Heparin Infusion -) 500 mls @ 20 mls/hr IVPB TITR SILVANA ; 1,000 UNITS/HR PRN Reason: Protocol Last Titration: 06/09/17 03:37 Dose: 1,150 units/hr Ondansetron HCl (Zofran Injection) 4 mg IVPB Q6H PRN PRN Reason: NAUSEA Oxycodone HCl (Roxicodone -) 5 mg PO Q6H PRN PRN Reason: PAIN LEVEL 6-10 Last Admin: 06/09/17 05:43 Dose: 5 mg - Objective Vital Signs: Vital Signs Temperature 97.5 F L 06/09/17 09:00 Pulse Rate 90 06/09/17 09:00 Respiratory Rate 20 06/09/17 09:00 Blood Pressure 136/96 06/09/17 09:00 O2 Sat by Pulse Oximetry (%) 97 06/09/17 09:00 Constitutional: Yes: Well Nourished, No Distress Cardiovascular: Yes: S1, S2 Respiratory: Yes: CTA Bilaterally Gastrointestinal: Yes: Normal Bowel Sounds. No: Tenderness, Rebound Extremities: Yes: Other ( No calf tenderness) Edema: No Labs: CBC, BMP 06/07/17 05:45 INR, PTT INR 1.12 (0.82-1.09) 06/06/17 14:45 - ....Imaging Chest X-ray: Report Reviewed Ultrasound: Report Reviewed Assessment/Plan Impression 1. 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 obstructive uropathy 3. CKD 4. nephrolithiasis 5. Polycythemia with DVT 6. Hyperkalemia- may have been worsened by ramipril which was used for polycythemia 7. Ckd from nephrolithiasis 8. Pyuria on Abx with negative UC Plan Rpt UA Continue with IV abx for now Await today's Labs IV Heparin as per protocol For IVC Filter Urology to internalize the stent after above Discussed with the Hospitalist Dr Butler
[2017-06-09 12:31] LABS: ANION GAP 10 (8-16); CALCIUM 9.3 mg/dL (8.5-10.1); CO2 24 mmol/L (21-32); CREATININE 1.1 mg/dL (0.7-1.3); GLUCOSE,RANDOM 99 mg/dL (74-106)
[2017-06-09 15:07] LABS: URINE APPEARANCE CLEAR; URINE BILIRUBIN NEGATIVE (NEGATIVE); URINE COLOR LTYELLOW; URINE GLUCOSE (UA) NEGATIVE (NEGATIVE); URINE KETONE NEGATIVE (NEGATIVE); URINE NITRITE NEGATIVE (NEGATIVE); URINE UROBILINOGEN NEGATIVE mg/dL (0.2-1.0)
[2017-06-09 15:20] LABS: URINE BLOOD 3+ (NEGATIVE); URINE LEUK ESTERASE TRACE (NEGATIVE); URINE PROTEIN 2+ (NEGATIVE)
[2017-06-09 15:22] LABS: URINE MUCUS RARE; URINE RBC 434 /hpf (0-3); URINE WBC 134 /hpf (3-5)
[2017-06-09] MEDS: HEPARIN INFUSION - 500 ML IVPB SCH (16:55)
--- NOTE | 2017-06-09 22:28 | PN ---
Progress Note (short form) - Note Progress Note: 4:45 CONSULT 51 yom known to me w h/o erythrocytosis of unknown duration. w/u, inclu bm bx unremarkable and he has been managed w occas phleb to maintain hct<50 and ASA. No recent phleb indicated. No h/o VTE. I had advised for sleep study to assess for BAL accounting for a reactive erythrocytosis. He reports a chronic bilat LE pain prohibiting him from exercising of unknown etiol for > 10y. This has not been relieved w lowering HCT w phleb. I ref for eval w Dr. Umanzor for rheum eval and pt reports the only finding was a severe plantar fasciitis. Has recurrent nephrolithiasis and adm for same w obstructive uropathy and ARF. Day prior to admission he notes having pain in calves more severe than his usual LE pain. Doppler evidences bilat distal LE dvts. He denies any resp sxs/CP. PE NAD non-tachypneic facial rubor (chronic) lungs-CTA CVS-reg S1S2 abd - soft, NT ext - no swelling Imp : acute LE DVTs, bkd erythrocytosis w recent HCT 54 and nephrolithiasis/ ARF. w/u for erythrocytosis has not been diagnostic for PV and I question if BAL is causing reactive polycythemia. Conversely, there is occas mild leukocytosis/thrombocytosis which increases suspicion for an atypical MPN. I agree w a/c and placement of retrievable IVCF for PE protection during anticip surg procedure. Obtain VQS. Monitor CBC. Will consider long-term a/c pending future course. All d/w pt/spouse who understand/in agreement w plan. following w you.
[2017-06-10] MEDS: ACETAMINOPHEN 325 MG TABLET (FP) PO PRN ×3 (04:13→16:54)
[2017-06-10] MEDS: oxyCODONE HCL 5 MG TABLET PO PRN ×3 (04:13→16:55)
[2017-06-10 07:11] LABS: MCH 25.3 pg (25.7-33.7); MCHC 32.9 g/dl (32.0-35.9); MEAN CELL VOLUME 76.8 fl (80-96); MEAN PLT VOLUME 8.2 fl (7.5-11.1); PLATELET COUNT 275 K/MM3 (134-434); RDW 15.4 % (11.9-15.9); WHITE BLOOD COUNT 20.6 K/mm3 (4.0-10.0)
[2017-06-10 07:34] LABS: ANION GAP 9 (8-16); CALCIUM 9.2 mg/dL (8.5-10.1); CO2 27 mmol/L (21-32); GLUCOSE,RANDOM 99 mg/dL (74-106)
[2017-06-10 07:38] LABS: CREATININE 1.3 mg/dL (0.7-1.3)
--- NOTE | 2017-06-10 08:54 | PN ---
Progress Note, Physician History of Present Illness: PULMONARY ALERT,-RESP DISTRESS,-CP,+LOWER EXT DISCOMFORT - Current Medication List Current Medications: Active Medications Acetaminophen (Tylenol -) 325 mg PO Q6H PRN PRN Reason: PAIN LEVEL 6-10 Last Admin: 06/10/17 04:13 Dose: 325 mg Heparin Sodium (Porcine) (Heparin -) 1,000 unit IVPUSH PRN PRN PRN Reason: Heparin Heparin Sodium (Porcine) (Heparin -) 5,000 unit IVPUSH PRN PRN PRN Reason: Heparin Last Admin: 06/09/17 03:38 Dose: 5,000 unit Ceftriaxone Sodium (Rocephin 1gm Ivpb (Pre-Docked)) 50 mls @ 100 mls/hr IVPB DAILY SILVANA Last Admin: 06/09/17 09:05 Dose: 100 mls/hr Heparin Sodium/Dextrose (Heparin Infusion -) 500 mls @ 20 mls/hr IVPB TITR SILVANA ; 1,000 UNITS/HR PRN Reason: Protocol Last Admin: 06/09/17 16:55 Dose: 23 mls/hr Ondansetron HCl (Zofran Injection) 4 mg IVPB Q6H PRN PRN Reason: NAUSEA Oxycodone HCl (Roxicodone -) 5 mg PO Q6H PRN PRN Reason: PAIN LEVEL 6-10 Last Admin: 06/10/17 04:13 Dose: 5 mg - Objective Vital Signs: Vital Signs Temperature 98.4 F 06/10/17 06:29 Pulse Rate 86 06/10/17 06:29 Respiratory Rate 20 06/10/17 06:29 Blood Pressure 129/85 06/10/17 06:29 O2 Sat by Pulse Oximetry (%) 97 06/09/17 21:00 Constitutional: Yes: Well Nourished, Calm Eyes: Yes: WNL HENT: Yes: WNL Neck: Yes: WNL Cardiovascular: Yes: Regular Rate and Rhythm, S1, S2 Respiratory: Yes: CTA Bilaterally Gastrointestinal: Yes: Normal Bowel Sounds, Soft Extremities: Yes: WNL Edema: No Labs: CBC, BMP 06/10/17 05:35 06/10/17 05:35 INR, PTT INR 1.12 (0.82-1.09) 06/06/17 14:45 Problem List - Problems (1) Acute kidney injury Code(s): N17.9 - ACUTE KIDNEY FAILURE, UNSPECIFIED (2) Creatinine elevation Code(s): R79.89 - OTHER SPECIFIED ABNORMAL FINDINGS OF BLOOD CHEMISTRY (3) Hyperkalemia Code(s): E87.5 - HYPERKALEMIA (4) Kidney stones Code(s): N20.0 - CALCULUS OF KIDNEY (5) Obstruction of kidney Code(s): N28.89 - OTHER SPECIFIED DISORDERS OF KIDNEY AND URETER (6) Polycythemia Code(s): D75.1 - SECONDARY POLYCYTHEMIA (7) Dvt femoral (deep venous thrombosis) Code(s): I82.419 - ACUTE EMBOLISM AND THROMBOSIS OF UNSPECIFIED FEMORAL VEIN Assessment/Plan IMP BILATERAL DVT/ R/O PE MENDOZA OBSTRUCTIVE UROPATHY S/P NEPHROSTOMY ERYTHROCYTOSIS R/O BAL PT GIVE H/O SNORING PLAN ANTICOAGULATION V/Q SCAN AM ECHO PENDING TEMPORARY IVC FILTER PRIOR TO SURGERY SLEEP SCREEN TONIGHT DR LAURA Problem List - Problems (1) Acute kidney injury Code(s): N17.9 - ACUTE KIDNEY FAILURE, UNSPECIFIED (2) Creatinine elevation Code(s): R79.89 - OTHER SPECIFIED ABNORMAL FINDINGS OF BLOOD CHEMISTRY (3) Hyperkalemia Code(s): E87.5 - HYPERKALEMIA (4) Kidney stones Code(s): N20.0 - CALCULUS OF KIDNEY (5) Obstruction of kidney Code(s): N28.89 - OTHER SPECIFIED DISORDERS OF KIDNEY AND URETER (6) Polycythemia Code(s): D75.1 - SECONDARY POLYCYTHEMIA (7) Dvt femoral (deep venous thrombosis) Code(s): I82.419 - ACUTE EMBOLISM AND THROMBOSIS OF UNSPECIFIED FEMORAL VEIN
[2017-06-10] MEDS: HEPARIN INFUSION - 500 ML IVPB SCH ×2 (09:30→15:15)
[2017-06-10] MEDS: HEPARIN NA (PORCINE) 5,000 UNITS/ML 1ML VIAL IVPUSH PRN (09:30)
[2017-06-10] MEDS: CEFTRIAXONE 50 ML IVPB SCH (09:45)
[2017-06-10 09:52] LABS: PLATELET ESTIMATE ADEQUATE (NORMAL)
--- NOTE | 2017-06-10 10:56 | PN ---
Progress Note (short form) - Note Progress Note: s: no cp sob palps dizzy o: Vital Signs Period Temp Pulse Resp BP Sys/Aguirre Pulse Ox Last 24 Hr 98 F-99.8 F 86-114 18-20 129-145/85-97 97 nad no jvd rrr s1s2 no mrg cta bl nl eff aaox3 no le e/c/c abd nt nd pos bs no jaundice diaphoresis Current Medications Generic Name Dose Route Start Last Admin Trade Name Freq PRN Reason Stop Dose Admin Acetaminophen 325 mg 06/08/17 19:48 06/10/17 04:13 Tylenol - PO 325 mg Q6H PRN Administration PAIN LEVEL 6-10 Heparin Sodium (Porcine) 1,000 unit 06/08/17 19:00 06/10/17 09:30 Heparin - IVPUSH 1,000 unit PRN PRN Administration Heparin Heparin Sodium (Porcine) 5,000 unit 06/08/17 19:00 06/09/17 03:38 Heparin - IVPUSH 5,000 unit PRN PRN Administration Heparin Ceftriaxone Sodium 50 mls @ 100 mls/hr 06/07/17 06:40 06/10/17 09:45 Rocephin 1gm Ivpb (Pre-Docked) IVPB 100 mls/hr DAILY SILVANA Administration Heparin Sodium/Dextrose 500 mls @ 20 mls/hr 06/08/17 19:00 06/10/17 09:30 Heparin Infusion - IVPB 25 mls/hr TITR SILVANA Administration Protocol 1,000 UNITS/HR Ondansetron HCl 4 mg 06/06/17 15:38 Zofran Injection IVPB Q6H PRN NAUSEA Oxycodone HCl 5 mg 06/08/17 19:48 06/10/17 04:13 Roxicodone - PO 5 mg Q6H PRN Administration PAIN LEVEL 6-10 CBC, BMP 06/10/17 05:35 06/10/17 05:35 tele: sr ecg 06/06/17: sr, nl intervals, no ischemic changes echo 05/2017: nl lv/rv, no sig valve path a/p: 51 m hx kidney stones sent to er 2/2 renal stones and hari. renal stones, hari, hyperkalemia: -renal following -cr improved, k improved -Had nephrostomy tube and planned for ureter stent next week. bradycardia, wenckebach, mobitz I: -tele shows episode of mobitz I second degree avb during sleep-->likely due to increased vagal tone during sleep and possibly MARILEE. No particular interventions /treatment needed for wenckebach but pt should have sleep study as outpt to look for MARILEE (having marilee screening study tonight). -echo, tsh unremarkable here dvts: -found to have bl dvts here, now on hep gtt -planned for v/q scan to eval for pe
--- NOTE | 2017-06-10 10:59 | PN ---
Physical Exam: SUBJECTIVE: Patient seen and examined at bedside. C/o b/l ankle pain. Denies fevers, chest pain, nausea, vomiting or SOB. OBJECTIVE: Vital Signs 3 Period Temp Pulse Resp BP Sys/Aguirre Pulse Ox Last 24 Hr 98 F-99.8 F 86-114 18-20 129-145/85-97 97 GENERAL: The patient is awake, alert, and fully oriented, in no acute distress. HEAD: Normal with no signs of trauma. LUNGS: Breath sounds equal, clear to auscultation bilaterally, no wheezes, no crackles, no accessory muscle use. HEART: Regular rate and rhythm, S1, S2 without murmur. ABDOMEN: Soft, nontender, nondistended, normoactive bowel sounds, no hepatosplenomegaly. EXTREMITIES: 2+ pulses, warm, well-perfused, no edema. NEUROLOGICAL: Cranial nerves II through XII grossly intact. Normal speech, gait not observed. PSYCH: Normal mood, normal affect. Laboratory Results - last 24 hr 3 06/09/17 06/09/17 06/09/17 11:45 11:45 14:00 WBC RBC Hgb Hct MCV MCH MCHC RDW Plt Count MPV Neutrophils % Lymphocytes % Monocytes % Eosinophils % Band Neutrophils Differential Comment Platelet Estimate PTT (Actin FS) 53.4 H D Sodium 137 Potassium 4.0 D Chloride 103 Carbon Dioxide 24 Anion Gap 10 BUN 22 H Creatinine 1.1 Random Glucose 99 Calcium 9.3 Urine Color Ltyellow Urine Appearance Clear Urine pH 5.0 Ur Specific [place] 1.020 Urine Protein 2+ H Urine Glucose (UA) Negative Urine Ketones Negative Urine Blood 3+ H Urine Nitrite Negative Urine Bilirubin Negative Urine Urobilinogen Negative Ur Leukocyte Esterase Trace H D Urine RBC 434 Urine WBC 134 Ur Epithelial Cells Rare Urine Mucus Rare 3 06/10/17 06/10/17 06/10/17 05:35 05:35 05:35 WBC 20.6 H D RBC 5.96 H Hgb 15.1 Hct 45.8 MCV 76.8 L MCH 25.3 L MCHC 32.9 RDW 15.4 Plt Count 275 MPV 8.2 Neutrophils % 73.0 Lymphocytes % 12.0 D Monocytes % 9.0 Eosinophils % 2.0 Band Neutrophils 4.0 Differential Comment Slide scanned Platelet Estimate Adequate PTT (Actin FS) 40.4 H Sodium 138 Potassium 4.3 Chloride 102 Carbon Dioxide 27 Anion Gap 9 BUN 20 H Creatinine 1.3 Random Glucose 99 Calcium 9.2 Urine Color Urine Appearance Urine pH Ur Specific [place] Urine Protein Urine Glucose (UA) Urine Ketones Urine Blood Urine Nitrite Urine Bilirubin Urine Urobilinogen Ur Leukocyte Esterase Urine RBC Urine WBC Ur Epithelial Cells Urine Mucus Active Medications 3 Generic Name Dose Route Start Last Admin Trade Name Freq PRN Reason Stop Dose Admin Acetaminophen 325 mg 06/08/17 19:48 06/10/17 04:13 Tylenol - PO 325 mg Q6H PRN Administration PAIN LEVEL 6-10 Heparin Sodium (Porcine) 1,000 unit 06/08/17 19:00 06/10/17 09:30 Heparin - IVPUSH 1,000 unit PRN PRN Administration Heparin Heparin Sodium (Porcine) 5,000 unit 06/08/17 19:00 06/09/17 03:38 Heparin - IVPUSH 5,000 unit PRN PRN Administration Heparin Ceftriaxone Sodium 50 mls @ 100 mls/hr 06/07/17 06:40 06/10/17 09:45 Rocephin 1gm Ivpb (Pre-Docked) IVPB 100 mls/hr DAILY SILVANA Administration Heparin Sodium/Dextrose 500 mls @ 20 mls/hr 06/08/17 19:00 06/10/17 09:30 Heparin Infusion - IVPB 25 mls/hr TITR SILVANA Administration Protocol 1,000 UNITS/HR Ondansetron HCl 4 mg 06/06/17 15:38 Zofran Injection IVPB Q6H PRN NAUSEA Oxycodone HCl 5 mg 06/08/17 19:48 06/10/17 04:13 Roxicodone - PO 5 mg Q6H PRN Administration PAIN LEVEL 6-10 ASSESSMENT/PLAN: A: 51 year old male with a PMH of polycythemia and nephrolithiasis, sent to ED by his urologist for right obstructing ureteral stone and for a left renal staghorn calculus. P: 1. Bilateral DVT's in posterior tibial veins - Likely from hx of PCV - Continue heparin gtt- titrate per protocol - V/Q scan r/o PE 06/11 - IVC filter 06/11 in IR 2. MENDOZA - Due to obstructive uropathy - MENDOZA resolved - Continue to hold JATIN 3. Hyperkalemia- resolved - K-4.3 - Daily BMP 4. Right hydronephrosis 2/2 obstructing ureteral stone - S/p right nephrostomy tube 06/06 - Plan for ureteral stent after VQ and IVC placement 5. UTI - Repeat UA with pyuria and trace leuk esterase - Urine cx negative - Cont ceftriaxone (day #5) - appreciate ID 6. Leukocytosis - UA with pyuria - urine cx- negative - continue ceftriaxone - ID Tylerde consulted 7. Polycythemia Vera - No active issues, last visit with Dr. Madrigal 1 month ago 8. 2 degree heart block Mobitz Type I - Per cardiology, tele showed episode of second degree avb mobitz type I while asleep - Likely due to increased vagal tone during sleep and possibly BAL - Sleep study 06/10 per pulm 9. F/E/N - renal diet - replete prn 10. PPX - heparin gtt - OOB Dispo: requires continued inpatient treatment of acute medical conditions Visit type - Emergency Visit Emergency Visit: Yes ED Registration Date: 06/06/17 Care time: The patient presented to the Emergency Department on the above date and was hospitalized for further evaluation of their emergent condition. - New Patient This patient is new to me today: Yes Date on this admission: 06/10/17 - Critical Care Critical Care patient: No
--- NOTE | 2017-06-10 11:51 | PN ---
Progress Note, Physician History of Present Illness: Renal f/u Patient in no distress Still c/o lower extremity cramps and discomfort IV Heparin for DVT WBC and serum Cr higher today T Max 99.8 yesterday No c/o CP or dyspnea Selected Entries 06/09/17 21:27 Temperature 99.8 F H - Current Medication List Current Medications: Active Medications Acetaminophen (Tylenol -) 325 mg PO Q6H PRN PRN Reason: PAIN LEVEL 6-10 Last Admin: 06/10/17 11:26 Dose: 325 mg Heparin Sodium (Porcine) (Heparin -) 1,000 unit IVPUSH PRN PRN PRN Reason: Heparin Last Admin: 06/10/17 09:30 Dose: 1,000 unit Heparin Sodium (Porcine) (Heparin -) 5,000 unit IVPUSH PRN PRN PRN Reason: Heparin Last Admin: 06/09/17 03:38 Dose: 5,000 unit Ceftriaxone Sodium (Rocephin 1gm Ivpb (Pre-Docked)) 50 mls @ 100 mls/hr IVPB DAILY SILVANA Last Admin: 06/10/17 09:45 Dose: 100 mls/hr Heparin Sodium/Dextrose (Heparin Infusion -) 500 mls @ 20 mls/hr IVPB TITR SILVANA ; 1,000 UNITS/HR PRN Reason: Protocol Last Admin: 06/10/17 09:30 Dose: 25 mls/hr Ondansetron HCl (Zofran Injection) 4 mg IVPB Q6H PRN PRN Reason: NAUSEA Oxycodone HCl (Roxicodone -) 5 mg PO Q6H PRN PRN Reason: PAIN LEVEL 6-10 Last Admin: 06/10/17 11:26 Dose: 5 mg - Objective Vital Signs: Vital Signs Temperature 98.4 F 06/10/17 06:29 Pulse Rate 86 06/10/17 06:29 Respiratory Rate 20 06/10/17 06:29 Blood Pressure 129/85 06/10/17 06:29 O2 Sat by Pulse Oximetry (%) 97 06/09/17 21:00 Constitutional: Yes: No Distress Cardiovascular: Yes: S1, S2 Respiratory: Yes: CTA Bilaterally Gastrointestinal: Yes: Soft. No: Tenderness, Rebound Edema: LLE: Trace, RLE: Trace Neurological: Yes: Alert, Oriented Labs: CBC, BMP 06/10/17 05:35 06/10/17 05:35 INR, PTT INR 1.12 (0.82-1.09) 06/06/17 14:45 Laboratory Tests 06/09/17 14:00 Urine Color Ltyellow Urine Appearance Clear Urine pH 5.0 Ur Specific [place] 1.020 Urine Protein 2+ H Urine Glucose (UA) Negative Urine Ketones Negative Urine Blood 3+ H Urine Nitrite Negative Urine Bilirubin Negative Urine Urobilinogen Negative Ur Leukocyte Esterase Trace H D Urine RBC 434 Urine WBC 134 Ur Epithelial Cells Rare Urine Mucus Rare Assessment/Plan Impression 1. 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 obstructive uropathy 3. CKD 4. nephrolithiasis 5. Polycythemia with DVT 6. S/P Hyperkalemia 7. Worsening Leukocytosis 8. Pyuria which persists on rpt UA on Abx with rising WBCs Plan To exclude infectious cause before proceeding with IVC filter since WBCs rising Continue with IV abx for now IV Heparin as per protocol For IVC Filter once medically optimized For V/Q scan Urology to internalize the stent after above Rpt labs in am Discussed with the Hospitalist Dr Butler
--- NOTE | 2017-06-10 14:43 | CONSULT ---
Consult Consult Specialty:: infectious diseases Reason for Consultation:: increasing wbc - History of Present Illness Chief Complaint: rt leg pain History of Present Illness: 51 year old male with a history of polycythemia (has regular phlebotomy treatments, on Ramipril) and nephrolithiasis s/p multiple lithotripsies referred from his urologist's for 0.9mm right UPJ calculus and left staghorn calculus with hydronephrosis and elevated creatinine and potassium. He complains of nausea and suprapubic pain. patient was admitted and started on abx and patient has rt sided nephrostomy tube present patient has been on abx on ceftriaxone for couple of days and inspite of that his wbc has started climbing also patient has been found to have dvt in his left leg and is on heparin drip patient has no specific complaints except the leg pain - History Source History Provided By: Patient, Family Member Limitations to Obtaining History: No Limitations - Alcohol/Substance Use Hx Alcohol Use: Yes (SOCIAL) - Smoking History Smoking history: Never smoked Have you smoked in the past 12 months: No Aproximately how many cigarettes per day: 0 Home Medications - Allergies Allergies/Adverse Reactions: Allergies Allergy/AdvReac Type Severity Reaction Status Date / Time No Known Allergies Allergy Verified 06/06/17 14:01 - Home Medications Home Medications: Ambulatory Orders Hydromorphone [Dilaudid -] 2 mg PO Q6H PRN #10 tablet MDD 3 tabs 05/28/17 Ketorolac Tromethamine [Toradol] 10 mg PO Q6H PRN #20 tablet 05/28/17 Review of Systems - Review of Systems Constitutional: reports: No Symptoms Eyes: reports: No Symptoms HENT: reports: No Symptoms Neck: reports: No Symptoms Cardiovascular: reports: No Symptoms Respiratory: reports: No Symptoms Gastrointestinal: reports: No Symptoms Genitourinary: reports: No Symptoms Musculoskeletal: reports: Muscle Pain Integumentary: reports: No Symptoms Neurological: reports: No Symptoms Endocrine: reports: No Symptoms Hematology/Lymphatic: reports: No Symptoms Psychiatric: reports: No Symptoms Physical Exam Vital Signs: Vital Signs Temperature 97.9 F 06/10/17 10:00 Pulse Rate 72 06/10/17 10:00 Respiratory Rate 19 06/10/17 10:00 Blood Pressure 134/84 06/10/17 10:00 O2 Sat by Pulse Oximetry (%) 93 L 06/10/17 09:00 Constitutional: Yes: Well Nourished, Calm, Mild Distress Eyes: Yes: Conjunctiva Clear HENT: Yes: Atraumatic Neck: Yes: Supple, Trachea Midline Cardiovascular: Yes: Regular Rate and Rhythm Respiratory: Yes: Regular, CTA Bilaterally Gastrointestinal: Yes: Normal Bowel Sounds, Soft Renal/: Yes: Other (rt sided nephrostomy tube present) Musculoskeletal: Yes: Other Extremities: Yes: Other (ankle pain) Neurological: Yes: Alert, Oriented Psychiatric: Yes: Alert, Oriented Labs: CBC, BMP 06/10/17 05:35 06/10/17 05:35 Imaging - Results Chest X-ray: Report Reviewed, Image Reviewed X-ray: Report Reviewed, Image Reviewed Assessment/Plan Problem List - Problems (1) Acute kidney injury Code(s): N17.9 - ACUTE KIDNEY FAILURE, UNSPECIFIED (2) Creatinine elevation Code(s): R79.89 - OTHER SPECIFIED ABNORMAL FINDINGS OF BLOOD CHEMISTRY (3) Hyperkalemia Code(s): E87.5 - HYPERKALEMIA (4) Kidney stones Code(s): N20.0 - CALCULUS OF KIDNEY (5) Obstruction of kidney Code(s): N28.89 - OTHER SPECIFIED DISORDERS OF KIDNEY AND URETER (6) Polycythemia Code(s): D75.1 - SECONDARY POLYCYTHEMIA (7) Dvt femoral (deep venous thrombosis) Code(s): I82.419 - ACUTE EMBOLISM AND THROMBOSIS OF UNSPECIFIED FEMORAL VEIN 8 leukocytosis plan will send urine for cx from the nephrostomy tube agree with ivc filter placement will change to zosyn continue to monitor wbc patient for definitive procedure if urine is clean rest as per primary team
[2017-06-10] MEDS: PIPERACILLIN/TAZOB 3.375 GM 50 ML IVPB SCH ×2 (15:04→18:05)
[2017-06-11] MEDS: oxyCODONE HCL 5 MG TABLET PO PRN ×3 (00:20→15:23)
[2017-06-11] MEDS: ACETAMINOPHEN 325 MG TABLET (FP) PO PRN ×3 (00:20→15:21)
[2017-06-11] MEDS: PIPERACILLIN/TAZOB 3.375 GM 50 ML IVPB SCH ×3 (01:29→17:56)
[2017-06-11 07:08] LABS: MCH 25.5 pg (25.7-33.7); MCHC 32.9 g/dl (32.0-35.9); MEAN CELL VOLUME 77.5 fl (80-96); MEAN PLT VOLUME 8.1 fl (7.5-11.1); PLATELET COUNT 278 K/MM3 (134-434); RDW 15.9 % (11.9-15.9); WHITE BLOOD COUNT 17.5 K/mm3 (4.0-10.0)
[2017-06-11 07:36] LABS: ANION GAP 8 (8-16); CALCIUM 9.1 mg/dL (8.5-10.1); CO2 28 mmol/L (21-32); CREATININE 1.2 mg/dL (0.7-1.3); GLUCOSE,RANDOM 95 mg/dL (74-106)
[2017-06-11] MEDS: HEPARIN NA (PORCINE) 5,000 UNITS/ML 1ML VIAL IVPUSH PRN ×2 (09:06→18:01)
[2017-06-11] MEDS: HEPARIN INFUSION - 500 ML IVPB SCH ×3 (09:08→17:59)
--- NOTE | 2017-06-11 09:26 | PN ---
Physical Exam: SUBJECTIVE: Patient seen and examined. He c/o worsening L lower extremity pain and swelling. He is unable to ambulate d/t pain. Events: - PTT sub therapeutic - Heparin bolus given this AM per protocol OBJECTIVE: Vital Signs Period Temp Pulse Resp BP Sys/Aguirre Pulse Ox Last 24 Hr 97.9 F-101.1 F 72-108 19-20 127-139/76-91 95 PE Neuro: alert, awake, c2-12intact Pulm: CTAB, no sob CV: s1 s2 rrr no mrg Abd: s nt nd + bs : R flank nephrostomy + drainage Ext: increased L foot swelling, +tenderness, warm, b/l ankle redness, r foot redness to great toe Laboratory Results - last 24 hr 06/10/17 06/10/17 06/10/17 05:35 05:35 15:10 WBC 20.6 H D RBC 5.96 H Hgb 15.1 Hct 45.8 MCV 76.8 L MCH 25.3 L MCHC 32.9 RDW 15.4 Plt Count 275 MPV 8.2 Neutrophils % 73.0 Lymphocytes % 12.0 D Monocytes % 9.0 Eosinophils % 2.0 Band Neutrophils 4.0 Differential Comment Slide scanned Platelet Estimate Adequate PTT (Actin FS) 42.7 H 49.8 H Sodium Potassium Chloride Carbon Dioxide Anion Gap BUN Creatinine Random Glucose Calcium 06/11/17 06/11/17 06/11/17 05:35 05:35 05:35 WBC 17.5 H RBC 5.60 Hgb 14.3 Hct 43.4 MCV 77.5 L MCH 25.5 L MCHC 32.9 RDW 15.9 Plt Count 278 MPV 8.1 Neutrophils % Y Lymphocytes % Y Monocytes % Eosinophils % Band Neutrophils Differential Comment Platelet Estimate PTT (Actin FS) 43.7 H Sodium 137 Potassium 4.0 Chloride 101 Carbon Dioxide 28 Anion Gap 8 BUN 19 H Creatinine 1.2 Random Glucose 95 Calcium 9.1 Active Medications Generic Name Dose Route Start Last Admin Trade Name Freq PRN Reason Stop Dose Admin Acetaminophen 325 mg 06/08/17 19:48 06/11/17 07:39 Tylenol - PO 325 mg Q6H PRN Administration PAIN LEVEL 6-10 Heparin Sodium (Porcine) 1,000 unit 06/08/17 19:00 06/11/17 09:06 Heparin - IVPUSH 1,000 unit PRN PRN Administration Heparin Heparin Sodium (Porcine) 5,000 unit 06/08/17 19:00 06/09/17 03:38 Heparin - IVPUSH 5,000 unit PRN PRN Administration Heparin Heparin Sodium/Dextrose 500 mls @ 20 mls/hr 06/08/17 19:00 06/11/17 09:08 Heparin Infusion - IVPB 27 mls/hr TITR SILVANA Administration Protocol 1,000 UNITS/HR Piperacillin Sod/Tazobactam Sod 50 mls @ 100 mls/hr 06/10/17 14:45 06/11/17 01: 29 Zosyn 3.375gm Ivpb (Pre-Docked) IVPB 100 mls/hr Q8H-IV SILVANA Administration Protocol Ondansetron HCl 4 mg 06/06/17 15:38 Zofran Injection IVPB Q6H PRN NAUSEA Oxycodone HCl 5 mg 06/08/17 19:48 06/11/17 07:35 Roxicodone - PO 5 mg Q6H PRN Administration PAIN LEVEL 6-10 Imaging: - ECHO 06/08: LV normal; RV normal; trace TR Assessment: 51 year old male with a PMH of polycythemia and nephrolithiasis, sent to ED by his urologist for right obstructing ureteral stone and for a left renal staghorn calculus. Plan: 1. Bilateral DVT's - hx of erythrocytosis, work up for PV not diagnostic - VQ scan and IVC filter today - Increase PTT to q4hr - Heparin gtt per protocol 2. Right hydronephrosis secondary to obstructing ureteral stone s/p right nephrostomy tube 06/06 - Tentative ureteral stent placement after IVC today 3pm 3. Erythrocytosis - Recent bone marrow bx non diagnostic, possible cause BAL causing reactive PV - Suspicion for atypical MPN - Heme input appreciated 4. MENDOZA - Due to obstructive uropathy - MENDOZA resolved - Hold lisinopril 5. Hyperkalemia - Resolved 6. UTI - Leukocytosis down from yesterday - Repeat Urine cx pending - Zosyn (day 1) 7. Mobitz Type I heart block - Per cardiology, tele showed episode of mobitz I second degree avb during sleep - - Likely due to increased vagal tone during sleep and possibly BAL - Outpatient workup for possible BAL Visit type - Emergency Visit Emergency Visit: Yes ED Registration Date: 06/06/17 Care time: The patient presented to the Emergency Department on the above date and was hospitalized for further evaluation of their emergent condition. - New Patient This patient is new to me today: No - Critical Care Critical Care patient: No
--- NOTE | 2017-06-11 09:37 | PN ---
Progress Note, Physician Chief Complaint: MENDOZA, stones History of Present Illness: no cp, sob, palpit, syncope - Current Medication List Current Medications: Active Medications Acetaminophen (Tylenol -) 325 mg PO Q6H PRN PRN Reason: PAIN LEVEL 6-10 Last Admin: 06/11/17 07:39 Dose: 325 mg Heparin Sodium (Porcine) (Heparin -) 1,000 unit IVPUSH PRN PRN PRN Reason: Heparin Last Admin: 06/11/17 09:06 Dose: 1,000 unit Heparin Sodium (Porcine) (Heparin -) 5,000 unit IVPUSH PRN PRN PRN Reason: Heparin Last Admin: 06/09/17 03:38 Dose: 5,000 unit Heparin Sodium/Dextrose (Heparin Infusion -) 500 mls @ 20 mls/hr IVPB TITR SILVANA ; 1,000 UNITS/HR PRN Reason: Protocol Last Admin: 06/11/17 09:08 Dose: 27 mls/hr Piperacillin Sod/Tazobactam Sod (Zosyn 3.375gm Ivpb (Pre-Docked)) 50 mls @ 100 mls/hr IVPB Q8H-IV SILVANA PRN Reason: Protocol Last Admin: 06/11/17 01:29 Dose: 100 mls/hr Ondansetron HCl (Zofran Injection) 4 mg IVPB Q6H PRN PRN Reason: NAUSEA Oxycodone HCl (Roxicodone -) 5 mg PO Q6H PRN PRN Reason: PAIN LEVEL 6-10 Last Admin: 06/11/17 07:35 Dose: 5 mg - Objective Vital Signs: Vital Signs Temperature 98.2 F 06/11/17 05:32 Pulse Rate 80 06/11/17 05:32 Respiratory Rate 20 06/11/17 05:32 Blood Pressure 139/77 06/11/17 05:32 O2 Sat by Pulse Oximetry (%) 95 06/10/17 20:48 Constitutional: Yes: Well Nourished, No Distress, Calm Cardiovascular: Yes: Regular Rate and Rhythm, S1, S2. No: JVD, Gallop, Murmur Respiratory: Yes: Regular, CTA Bilaterally. No: Accessory Muscle Use, Rales, Wheezes Extremities: No: Cold Edema: No Neurological: Yes: Alert, Oriented Psychiatric: No: Agitated Labs: CBC, BMP 06/11/17 05:35 06/11/17 05:35 INR, PTT INR 1.12 (0.82-1.09) 06/06/17 14:45 - ....Imaging EKG: Other (tele: NSR, no bradyarrhythmia) Assessment/Plan ecg 06/06/17: sr, nl intervals, no ischemic changes echo 05/2017: nl lv/rv, no sig valve path a/p: 51 m hx kidney stones sent to er 2/2 renal stones and mendoza. renal stones, mendoza, hyperkalemia: -renal following -cr improved, k improved -Had nephrostomy tube and planned for ureter stent next week. bradycardia, wenckebach, mobitz I: -tele shows episode of mobitz I second degree avb during sleep-->likely due to increased vagal tone during sleep and possibly BAL. No particular interventions /treatment needed for wenckebach but pt should have sleep study as outpt to look for BAL (having bal screening study tonight). 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 needs hypercoag w/u as outpt) preop CV eval: -RCRI = 0, probably normal functional capacity -for intermediate risk procedure (ureter stenting) -no s/sx of active ischemic heart dz/chf -cleared to proceed at low risk for periop cv complications -mgmt of periop AC for DVTs per hospitalist D/C TELEMETRY
--- NOTE | 2017-06-11 10:58 | PN ---
Progress Note, Physician History of Present Illness: PULMONARY ALERT ,-SOB,+ C/O LLE PAIN,PT SPIKED TEMP YESTERDAY 1O1.1,PLACED ON ANTIBIOTICS.PTS SLEEP SCREEN + SEVERE BAL, AHI 29. - Current Medication List Current Medications: Active Medications Acetaminophen (Tylenol -) 325 mg PO Q6H PRN PRN Reason: PAIN LEVEL 6-10 Last Admin: 06/11/17 07:39 Dose: 325 mg Heparin Sodium (Porcine) (Heparin -) 1,000 unit IVPUSH PRN PRN PRN Reason: Heparin Last Admin: 06/11/17 09:06 Dose: 1,000 unit Heparin Sodium (Porcine) (Heparin -) 5,000 unit IVPUSH PRN PRN PRN Reason: Heparin Last Admin: 06/09/17 03:38 Dose: 5,000 unit Heparin Sodium/Dextrose (Heparin Infusion -) 500 mls @ 20 mls/hr IVPB TITR SILVANA ; 1,000 UNITS/HR PRN Reason: Protocol Last Admin: 06/11/17 09:08 Dose: 27 mls/hr Piperacillin Sod/Tazobactam Sod (Zosyn 3.375gm Ivpb (Pre-Docked)) 50 mls @ 100 mls/hr IVPB Q8H-IV SILVANA PRN Reason: Protocol Last Admin: 06/11/17 10:16 Dose: 100 mls/hr Ondansetron HCl (Zofran Injection) 4 mg IVPB Q6H PRN PRN Reason: NAUSEA Oxycodone HCl (Roxicodone -) 5 mg PO Q6H PRN PRN Reason: PAIN LEVEL 6-10 Last Admin: 06/11/17 07:35 Dose: 5 mg - Objective Vital Signs: Vital Signs Temperature 97.9 F 06/11/17 09:00 Pulse Rate 96 H 06/11/17 09:00 Respiratory Rate 18 06/11/17 09:00 Blood Pressure 124/89 06/11/17 09:00 O2 Sat by Pulse Oximetry (%) 95 06/11/17 09:00 Constitutional: Yes: Well Nourished, Calm Eyes: Yes: WNL HENT: Yes: WNL Neck: Yes: WNL Cardiovascular: Yes: Regular Rate and Rhythm, S1, S2 Respiratory: Yes: CTA Bilaterally Gastrointestinal: Yes: Normal Bowel Sounds, Soft Extremities: Yes: WNL, Erythema (LLE) Edema: Yes Labs: CBC, BMP 06/11/17 05:35 06/11/17 05:35 INR, PTT INR 1.12 (0.82-1.09) 06/06/17 14:45 Problem List - Problems (1) Acute kidney injury Code(s): N17.9 - ACUTE KIDNEY FAILURE, UNSPECIFIED (2) Creatinine elevation Code(s): R79.89 - OTHER SPECIFIED ABNORMAL FINDINGS OF BLOOD CHEMISTRY (3) Hyperkalemia Code(s): E87.5 - HYPERKALEMIA (4) Kidney stones Code(s): N20.0 - CALCULUS OF KIDNEY (5) Obstruction of kidney Code(s): N28.89 - OTHER SPECIFIED DISORDERS OF KIDNEY AND URETER (6) Polycythemia Code(s): D75.1 - SECONDARY POLYCYTHEMIA (7) Dvt femoral (deep venous thrombosis) Code(s): I82.419 - ACUTE EMBOLISM AND THROMBOSIS OF UNSPECIFIED FEMORAL VEIN Assessment/Plan IMP BILATERAL DVT/ R/O PE MENDOZA IM PROVING OBSTRUCTIVE UROPATHY S/P NEPHROSTOMY ERYTHROCYTOSIS R/O BAL PT GIVES H/O SNORING PLAN ANTICOAGULATION V/Q SCAN TODAY TEMPORARY IVC FILTER PRIOR TO SURGERY SLEEP STUDIES OUTPATIENT DR LAURA Problem List - Problems (1) Acute kidney injury Code(s): N17.9 - ACUTE KIDNEY FAILURE, UNSPECIFIED (2) Creatinine elevation Code(s): R79.89 - OTHER SPECIFIED ABNORMAL FINDINGS OF BLOOD CHEMISTRY (3) Hyperkalemia Code(s): E87.5 - HYPERKALEMIA (4) Kidney stones Code(s): N20.0 - CALCULUS OF KIDNEY (5) Obstruction of kidney Code(s): N28.89 - OTHER SPECIFIED DISORDERS OF KIDNEY AND URETER (6) Polycythemia Code(s): D75.1 - SECONDARY POLYCYTHEMIA (7) Dvt femoral (deep venous thrombosis) Code(s): I82.419 - ACUTE EMBOLISM AND THROMBOSIS OF UNSPECIFIED FEMORAL VEIN
[2017-06-11 11:37] LABS: PLATELET ESTIMATE ADEQUATE (NORMAL)
--- NOTE | 2017-06-11 12:05 | PN ---
Progress Note (short form) - Note Progress Note: RENAL Pt awake and alert c/o bilateral foot pain nephrostomy working well Last Vital Signs Temp Pulse Resp BP Pulse Ox 97.9 F 96 H 18 124/89 95 06/11/17 09:00 06/11/17 09:00 06/11/17 09:00 06/11/17 09:00 06/11/17 09:00 lungs clear cvs s1s2 rr abd soft ext pedal edema, has good pulses bilat neuro a+ox3 CBC, BMP 06/11/17 05:35 06/11/17 05:35 Current Medications Generic Name Dose Route Start Last Admin Trade Name Freq PRN Reason Stop Dose Admin Acetaminophen 325 mg 06/08/17 19:48 06/11/17 07:39 Tylenol - PO 325 mg Q6H PRN Administration PAIN LEVEL 6-10 Heparin Sodium (Porcine) 1,000 unit 06/08/17 19:00 06/11/17 09:06 Heparin - IVPUSH 1,000 unit PRN PRN Administration Heparin Heparin Sodium (Porcine) 5,000 unit 06/08/17 19:00 06/09/17 03:38 Heparin - IVPUSH 5,000 unit PRN PRN Administration Heparin Heparin Sodium/Dextrose 500 mls @ 20 mls/hr 06/08/17 19:00 06/11/17 11:15 Heparin Infusion - IVPB 27 mls/hr TITR SILVANA Administration Protocol 1,000 UNITS/HR Piperacillin Sod/Tazobactam Sod 50 mls @ 100 mls/hr 06/10/17 14:45 06/11/17 10: 16 Zosyn 3.375gm Ivpb (Pre-Docked) IVPB 100 mls/hr Q8H-IV SILVANA Administration Protocol Ondansetron HCl 4 mg 06/06/17 15:38 Zofran Injection IVPB Q6H PRN NAUSEA Oxycodone HCl 5 mg 06/08/17 19:48 06/11/17 07:35 Roxicodone - PO 5 mg Q6H PRN Administration PAIN LEVEL 6-10 Impression 1. 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 obstructive uropathy 3. CKD 4. nephrolithiasis 5. polycythemia- 6. hyperkalemia- may have been worsened by ramipril which was used for polycythemia 7 likely has ckd from nephrolithiasis 8. s/p fever with leukocytosis Plan - keep off ramipril, would favor phlebotomies as necessary - would do blood cultures if febrile again -continue heparin and insert ivc filter before cysto/retrograde - monitor lytes -avoid nephrotroxins - must aggressively deal with these calculi since he already lost one kidney MV
--- NOTE | 2017-06-11 12:58 | PN ---
Progress Note, Physician History of Present Illness: patient stable ankle pain continues wbc marginally down - Current Medication List Current Medications: Active Medications Acetaminophen (Tylenol -) 325 mg PO Q6H PRN PRN Reason: PAIN LEVEL 6-10 Last Admin: 06/11/17 07:39 Dose: 325 mg Heparin Sodium (Porcine) (Heparin -) 1,000 unit IVPUSH PRN PRN PRN Reason: Heparin Last Admin: 06/11/17 09:06 Dose: 1,000 unit Heparin Sodium (Porcine) (Heparin -) 5,000 unit IVPUSH PRN PRN PRN Reason: Heparin Last Admin: 06/09/17 03:38 Dose: 5,000 unit Heparin Sodium/Dextrose (Heparin Infusion -) 500 mls @ 20 mls/hr IVPB TITR SILVANA ; 1,000 UNITS/HR PRN Reason: Protocol Last Admin: 06/11/17 11:15 Dose: 27 mls/hr Piperacillin Sod/Tazobactam Sod (Zosyn 3.375gm Ivpb (Pre-Docked)) 50 mls @ 100 mls/hr IVPB Q8H-IV SILVANA PRN Reason: Protocol Last Admin: 06/11/17 10:16 Dose: 100 mls/hr Ondansetron HCl (Zofran Injection) 4 mg IVPB Q6H PRN PRN Reason: NAUSEA Oxycodone HCl (Roxicodone -) 5 mg PO Q6H PRN PRN Reason: PAIN LEVEL 6-10 Last Admin: 06/11/17 07:35 Dose: 5 mg - Objective Vital Signs: Vital Signs Temperature 97.9 F 06/11/17 09:00 Pulse Rate 96 H 06/11/17 09:00 Respiratory Rate 18 06/11/17 09:00 Blood Pressure 124/89 06/11/17 09:00 O2 Sat by Pulse Oximetry (%) 95 06/11/17 09:00 Constitutional: Yes: No Distress, Calm Cardiovascular: Yes: Regular Rate and Rhythm, S1, S2 Respiratory: Yes: Regular, CTA Bilaterally Gastrointestinal: Yes: Normal Bowel Sounds, Soft Genitourinary: Yes: Other (rt nephrostomy tube in place) Musculoskeletal: Yes: Other Extremities: Yes: Other Neurological: Yes: Alert, Oriented Psychiatric: Yes: Alert, Oriented Labs: CBC, BMP 06/11/17 05:35 06/11/17 05:35 INR, PTT INR 1.12 (0.82-1.09) 06/06/17 14:45 Assessment/Plan Problem List - Problems (1) Acute kidney injury Code(s): N17.9 - ACUTE KIDNEY FAILURE, UNSPECIFIED (2) Creatinine elevation Code(s): R79.89 - OTHER SPECIFIED ABNORMAL FINDINGS OF BLOOD CHEMISTRY (3) Hyperkalemia Code(s): E87.5 - HYPERKALEMIA (4) Kidney stones Code(s): N20.0 - CALCULUS OF KIDNEY (5) Obstruction of kidney Code(s): N28.89 - OTHER SPECIFIED DISORDERS OF KIDNEY AND URETER (6) Polycythemia Code(s): D75.1 - SECONDARY POLYCYTHEMIA (7) Dvt femoral (deep venous thrombosis) Code(s): I82.419 - ACUTE EMBOLISM AND THROMBOSIS OF UNSPECIFIED FEMORAL VEIN 8 leukocytosis plan await for urine cx report ivc filter continue monitoring rest as per primary
--- NOTE | 2017-06-11 13:50 | CONS ---
DATE OF CONSULTATION: 06/09/2017 REFERRING PHYSICIAN: Yin Mckoy NP The patient is a 51-year-old white male with past medical history of hypertension, nonsmoker, history of chronic kidney disease secondary to renal stones, history of staghorn calculus, who was admitted to [facility] secondary to acute renal failure. Patient was noted on admission to have a creatinine of 6. Apparently, the patient was going to undergo a stent prior to removal of the stones at which time he was admitted. Patient also complained of some left flank pain and pelvic pain for the past 2 weeks. He also complained of some dyspnea on exertion for the past 2 weeks, which is new. Of note is he also does have a history of polycythemia for which he undergoes phlebotomy every 3 months, currently under the care of Dr. Boo. Of note, his hospitalization was significant for he started complaining of pain in the lower extremities. He underwent vascular studies which revealed bilateral DVT for which he was started on anticoagulation. Patient, as stated before, is a nonsmoker. There is no history of occupational exposure to chemicals or fumes. There is no history of recent travel. He denies any sedentary lifestyle. PAST MEDICAL HISTORY: Again includes polycythemia, chronic kidney disease secondary to renal stones, and hypertension. REVIEW OF SYSTEMS: No orthopnea. No PND. No chest pain. No palpitations. Positive dyspnea on exertion. No cough. No hemoptysis. No abdominal pain. Positive mild lower extremity discomfort. CURRENT MEDICATIONS: Include Zofran, Tylenol, Rocephin, heparin, and Roxicodone. PHYSICAL EXAMINATION: General: The patient is a well-developed, well-nourished male, awake, alert, in no acute distress. Vital Signs: He is afebrile. Blood pressure is 136/96, respiratory rate is 20, O2 saturation is 97% on room air. HEENT: Exam is normocephalic, atraumatic. Neck: Supple. Heart: Regular S1, S2. Chest: Clear. Abdomen: Soft. Bowel sounds positive. Extremities: No cyanosis or edema. WBC is 11.8, hemoglobin 14.1, hematocrit 43.3 with a platelet count of 275,000. PTT is 38.3. Potassium 5.4, BUN is 22, creatinine 1.2. Chest x-ray is pending. IMPRESSION: 1. Bilateral deep vein thrombosis. 2. Acute kidney injury, resolving, status post nephrostomy. 3. Polycythemia. 4. Hypertension. PLAN: 1. Will obtain ventilation and perfusion lung scan to rule out possible pulmonary emboli in view of patient recently noted to have dyspnea on exertion of new onset. 2. Continue anticoagulation. 3. Chest x-ray. 4. Also consider possible insertion of inferior vena cava filter if patient does require a surgical procedure with possibility of bleeding. Thank you. We will follow with you. INDIRA LAURA M.D. [id number]
--- NOTE | 2017-06-11 18:07 | CONSULT ---
Consult - text type - Consultation Consultation Note: CC: ARF s/p right Percutaneous nephrostomy tube now with dvt for ivc filter hpi; Patient is currently urologically comfortable. Patient denies any significant back pain. He is afebrile and toleratin a diet. Patient is cheduled today for an IVC filter placement. PE afeb abd: soft, non-tender; no CVAT imp s/p ARF now with PNT dvt plan internalization of stent when stable discussed with patient and family x 25 minutes
[2017-06-12] MEDS: PIPERACILLIN/TAZOB 3.375 GM 50 ML IVPB SCH ×3 (02:14→17:34)
[2017-06-12] MEDS: oxyCODONE HCL 5 MG TABLET PO PRN ×2 (04:06→22:19)
[2017-06-12] MEDS: ACETAMINOPHEN 325 MG TABLET (FP) PO PRN ×3 (04:07→22:21)
[2017-06-12 08:22] LABS: MCH 25.2 pg (25.7-33.7); MCHC 32.7 g/dl (32.0-35.9); MEAN CELL VOLUME 77.1 fl (80-96); MEAN PLT VOLUME 8.6 fl (7.5-11.1); PLATELET COUNT 275 K/MM3 (134-434); WHITE BLOOD COUNT 16.7 K/mm3 (4.0-10.0)
[2017-06-12 08:46] LABS: ALBUMIN 2.9 g/dl (3.4-5.0); ALK PHOS 128 U/L (45-117); ANION GAP 9 (8-16); BILIRUBIN,TOTAL 0.9 mg/dL (0.2-1.0); CALCIUM 8.7 mg/dL (8.5-10.1); CO2 28 mmol/L (21-32); CREATININE 1.2 mg/dL (0.7-1.3); GLUCOSE,RANDOM 88 mg/dL (74-106); SGOT/AST 44 U/L (15-37); SGPT/ALT 79 U/L (12-78); TOT PROT 6.3 g/dl (6.4-8.2)
[2017-06-12] MEDS ORDERED: PT OWN MED DRAWER 7, Y5N ONE (09:17)
[2017-06-12] MEDS ORDERED: morphine CARPU-JECT 2 MG/1 ML DISP.SYRIN IVPUSH ONE (10:27)
--- NOTE | 2017-06-12 10:30 | PN ---
Physical Exam: SUBJECTIVE: Patient seen and examined. s/p IVC filter, feeling well. He has increased swelling and pain to L foot, he is unable to OBJECTIVE: Vital Signs Period Temp Pulse Resp BP Sys/Aguirre Pulse Ox Last 24 Hr 97.9 F-98.8 F 81-112 16-20 109-150/72-93 97-100 PE Neuro: alert, awake, c2-12intact Heent: r neck insertion site wnl Pulm: CTAB CV: s1 s2 rrr no mrg Abd: s nt nd + bs : R flank nephrostomy + drainage serosanginous Ext: L foot swelling, + DP pulses, +tenderness, mild dependent discoloration, not tracking up, erythema resolved, R foot swelling mildly improved CBCD WBC 16.7 K/mm3 (4.0-10.0) H 06/12/17 05:55 RBC 5.46 M/mm3 (4.00-5.60) 06/12/17 05:55 Hgb 13.7 GM/dL (11.7-16.9) 06/12/17 05:55 Hct 42.1 % (35.4-49) 06/12/17 05:55 MCV 77.1 fl (80-96) L 06/12/17 05:55 MCHC 32.7 g/dl (32.0-35.9) 06/12/17 05:55 RDW 16.0 % (11.9-15.9) H 06/12/17 05:55 Plt Count 275 K/MM3 (134-434) 06/12/17 05:55 MPV 8.6 fl (7.5-11.1) 06/12/17 05:55 CMP Sodium 137 mmol/L (136-145) 06/12/17 05:55 Potassium 4.0 mmol/L (3.5-5.1) 06/12/17 05:55 Chloride 100 mmol/L (98-107) 06/12/17 05:55 Carbon Dioxide 28 mmol/L (21-32) 06/12/17 05:55 Anion Gap 9 (8-16) 06/12/17 05:55 BUN 18 mg/dL (7-18) 06/12/17 05:55 Creatinine 1.2 mg/dL (0.7-1.3) 06/12/17 05:55 Creat Clearance w eGFR > 60 (>60) 06/12/17 05:55 Calcium 8.7 mg/dL (8.5-10.1) 06/12/17 05:55 Total Bilirubin 0.9 mg/dL (0.2-1.0) 06/12/17 05:55 AST 44 U/L (15-37) H D 06/12/17 05:55 ALT 79 U/L (12-78) H D 06/12/17 05:55 Alkaline Phosphatase 128 U/L (45-117) H D 06/12/17 05:55 Total Protein 6.3 g/dl (6.4-8.2) L 06/12/17 05:55 Albumin 2.9 g/dl (3.4-5.0) L 06/12/17 05:55 06/08/17 06/11/17 06/12/17 05:35 21:10 05:55 PTT (Actin FS) 56.3 H 51.5 H TSH 2.25 D Active Medications Generic Name Dose Route Start Last Admin Trade Name Freq PRN Reason Stop Dose Admin Acetaminophen 325 mg 06/08/17 19:48 06/12/17 04:07 Tylenol - PO 325 mg Q6H PRN Administration PAIN LEVEL 6-10 Heparin Sodium (Porcine) 1,000 unit 06/08/17 19:00 06/11/17 18:01 Heparin - IVPUSH 1,000 unit PRN PRN Administration Heparin Heparin Sodium (Porcine) 5,000 unit 06/08/17 19:00 06/09/17 03:38 Heparin - IVPUSH 5,000 unit PRN PRN Administration Heparin Heparin Sodium/Dextrose 500 mls @ 20 mls/hr 06/08/17 19:00 06/11/17 17:59 Heparin Infusion - IVPB 29 mls/hr TITR SILVANA Administration Protocol 1,000 UNITS/HR Piperacillin Sod/Tazobactam Sod 50 mls @ 100 mls/hr 06/10/17 14:45 06/12/17 10: 27 Zosyn 3.375gm Ivpb (Pre-Docked) IVPB 100 mls/hr Q8H-IV SILVANA Administration Protocol Morphine Sulfate 1 mg 06/12/17 10:27 Morphine Injection - IVPUSH 06/12/17 10:28 ONCE ONE Ondansetron HCl 4 mg 06/06/17 15:38 Zofran Injection IVPB Q6H PRN NAUSEA Oxycodone HCl 5 mg 06/08/17 19:48 06/12/17 04:06 Roxicodone - PO 5 mg Q6H PRN Administration PAIN LEVEL 6-10 Imaging: - ECHO 06/08: LV normal; RV normal; trace TR - DVT doppler: + DVT b/l posterior tibial veins Assessment: 51 year old male with a PMH of polycythemia and nephrolithiasis, sent to ED by his urologist for right obstructing ureteral stone and for a left renal staghorn calculus. Plan: 1. Increase L foot swelling - Repeat DVT doppler r/o progressive/new dvts - Maintain heparin gtt 2. Bilateral DVT's - hx of erythrocytosis, work up for PV not diagnostic - IVC filter placed 06/11 - Has severe BAL - VQ scan negative for PE - PTT therapeutic, will recheck at 1200 - Heparin gtt per protocol - Start Eliquis once stable from stent placement 3. Right hydronephrosis secondary to obstructing ureteral stone s/p right nephrostomy tube 06/06 - Ureteral stent placement tomorrow 4. Erythrocytosis - Recent bone marrow bx non diagnostic, possible cause BAL causing reactive PV - Suspicion for atypical MPN 5. MENDOZA - Due to obstructive uropathy - Resolved - Hold lisinopril 6. UTI - Repeat Urine cx negative - Leukocytosis mild decrease, however could be reactive from ivc procedure - Zosyn (day 2) - Trend CBC 7. Mobitz Type I heart block - Per cardiology, tele showed episode of mobitz I second degree avb during sleep - - Likely due to increased vagal tone during sleep and possibly BAL - Outpatient workup for possible BAL Visit type - Emergency Visit Emergency Visit: Yes ED Registration Date: 06/06/17 Care time: The patient presented to the Emergency Department on the above date and was hospitalized for further evaluation of their emergent condition. - New Patient This patient is new to me today: No - Critical Care Critical Care patient: No
--- NOTE | 2017-06-12 10:37 | PN ---
Progress Note, Physician History of Present Illness: pulmonary alert,pt s/p ivc filter tolerated procedure well. V/Q SCAN - PE.PT C/O LLE pain,swelling - Current Medication List Current Medications: Active Medications Acetaminophen (Tylenol -) 325 mg PO Q6H PRN PRN Reason: PAIN LEVEL 6-10 Last Admin: 06/12/17 04:07 Dose: 325 mg Heparin Sodium (Porcine) (Heparin -) 1,000 unit IVPUSH PRN PRN PRN Reason: Heparin Last Admin: 06/11/17 18:01 Dose: 1,000 unit Heparin Sodium (Porcine) (Heparin -) 5,000 unit IVPUSH PRN PRN PRN Reason: Heparin Last Admin: 06/09/17 03:38 Dose: 5,000 unit Heparin Sodium/Dextrose (Heparin Infusion -) 500 mls @ 20 mls/hr IVPB TITR SILVANA ; 1,000 UNITS/HR PRN Reason: Protocol Last Admin: 06/11/17 17:59 Dose: 29 mls/hr Piperacillin Sod/Tazobactam Sod (Zosyn 3.375gm Ivpb (Pre-Docked)) 50 mls @ 100 mls/hr IVPB Q8H-IV SILVANA PRN Reason: Protocol Last Admin: 06/12/17 10:27 Dose: 100 mls/hr Ondansetron HCl (Zofran Injection) 4 mg IVPB Q6H PRN PRN Reason: NAUSEA Oxycodone HCl (Roxicodone -) 5 mg PO Q6H PRN PRN Reason: PAIN LEVEL 6-10 Last Admin: 06/12/17 04:06 Dose: 5 mg - Objective Vital Signs: Vital Signs Temperature 98.8 F 06/12/17 08:36 Pulse Rate 81 06/12/17 08:36 Respiratory Rate 18 06/12/17 08:36 Blood Pressure 145/76 06/12/17 08:36 O2 Sat by Pulse Oximetry (%) 97 06/12/17 06:00 Constitutional: Yes: Well Nourished, Calm Eyes: Yes: WNL HENT: Yes: WNL Neck: Yes: WNL Cardiovascular: Yes: Regular Rate and Rhythm, S1, S2 Respiratory: Yes: CTA Bilaterally Gastrointestinal: Yes: Normal Bowel Sounds, Soft Extremities: Yes: Other (LLE SWELLING,) Edema: No Labs: CBC, BMP 06/12/17 05:55 06/12/17 05:55 INR, PTT INR 1.12 (0.82-1.09) 06/06/17 14:45 Problem List - Problems (1) Acute kidney injury Code(s): N17.9 - ACUTE KIDNEY FAILURE, UNSPECIFIED (2) Creatinine elevation Code(s): R79.89 - OTHER SPECIFIED ABNORMAL FINDINGS OF BLOOD CHEMISTRY (3) Hyperkalemia Code(s): E87.5 - HYPERKALEMIA (4) Kidney stones Code(s): N20.0 - CALCULUS OF KIDNEY (5) Obstruction of kidney Code(s): N28.89 - OTHER SPECIFIED DISORDERS OF KIDNEY AND URETER (6) Polycythemia Code(s): D75.1 - SECONDARY POLYCYTHEMIA (7) Dvt femoral (deep venous thrombosis) Code(s): I82.419 - ACUTE EMBOLISM AND THROMBOSIS OF UNSPECIFIED FEMORAL VEIN Assessment/Plan IMP BILATERAL DVT/ R/O PE MENDOZA IM PROVING OBSTRUCTIVE UROPATHY S/P NEPHROSTOMY ERYTHROCYTOSIS R/O BAL PT GIVES H/O SNORING PLAN ANTICOAGULATION DUPLEX LOWER EXT SLEEP STUDIES OUTPATIENT DR LAURA Problem List - Problems (1) Acute kidney injury Code(s): N17.9 - ACUTE KIDNEY FAILURE, UNSPECIFIED (2) Creatinine elevation Code(s): R79.89 - OTHER SPECIFIED ABNORMAL FINDINGS OF BLOOD CHEMISTRY (3) Hyperkalemia Code(s): E87.5 - HYPERKALEMIA (4) Kidney stones Code(s): N20.0 - CALCULUS OF KIDNEY (5) Obstruction of kidney Code(s): N28.89 - OTHER SPECIFIED DISORDERS OF KIDNEY AND URETER (6) Polycythemia Code(s): D75.1 - SECONDARY POLYCYTHEMIA (7) Dvt femoral (deep venous thrombosis) Code(s): I82.419 - ACUTE EMBOLISM AND THROMBOSIS OF UNSPECIFIED FEMORAL VEIN
--- NOTE | 2017-06-12 11:03 | PN ---
Progress Note (short form) - Note Progress Note: s: no cp sob palps dizzy; still with ankle edema bl with bl foot pain as well o: Vital Signs Period Temp Pulse Resp BP Sys/Aguirre Pulse Ox Last 24 Hr 97.9 F-98.8 F 81-112 16-20 109-150/72-93 97-100 nad no jvd rrr s1s2 no mrg cta bl nl eff aaox3 trace ankle edema bl abd nt nd pos bs no jaundice diaphoresis Current Medications Generic Name Dose Route Start Last Admin Trade Name Freq PRN Reason Stop Dose Admin Acetaminophen 325 mg 06/08/17 19:48 06/12/17 04:07 Tylenol - PO 325 mg Q6H PRN Administration PAIN LEVEL 6-10 Heparin Sodium (Porcine) 1,000 unit 06/08/17 19:00 06/11/17 18:01 Heparin - IVPUSH 1,000 unit PRN PRN Administration Heparin Heparin Sodium (Porcine) 5,000 unit 06/08/17 19:00 06/09/17 03:38 Heparin - IVPUSH 5,000 unit PRN PRN Administration Heparin Heparin Sodium/Dextrose 500 mls @ 20 mls/hr 06/08/17 19:00 06/11/17 17:59 Heparin Infusion - IVPB 29 mls/hr TITR SILVANA Administration Protocol 1,000 UNITS/HR Piperacillin Sod/Tazobactam Sod 50 mls @ 100 mls/hr 06/10/17 14:45 06/12/17 10: 27 Zosyn 3.375gm Ivpb (Pre-Docked) IVPB 100 mls/hr Q8H-IV SILVANA Administration Protocol Ondansetron HCl 4 mg 06/06/17 15:38 Zofran Injection IVPB Q6H PRN NAUSEA Oxycodone HCl 5 mg 06/08/17 19:48 06/12/17 04:06 Roxicodone - PO 5 mg Q6H PRN Administration PAIN LEVEL 6-10 CBC, BMP 06/12/17 05:55 06/12/17 05:55 ecg 06/06/17: sr, nl intervals, no ischemic changes echo 05/2017: nl lv/rv, no sig valve path a/p: 51 m hx kidney stones sent to er 2/2 renal stones and hari. renal stones, hari, hyperkalemia: -renal following -cr improved, k improved -Had nephrostomy tube and planned for ureter stent tomorrow (no cardiac contraindications) bradycardia, wenckebach, mobitz I: -tele shows episode of mobitz I second degree avb during sleep-->likely due to increased vagal tone during sleep and BAL. No particular interventions/ treatment needed for wenckebach but pt should have formal sleep study as outpt as his inpt screening test was abnormal. -echo, tsh unremarkable here dvts: -found to have bl dvts here, now on hep gtt -v/q scan low prob -had ivc filter placed here as well -still with bl foot pain and ankle edema so will have repeat b/l le duplex today to assess dvt burden
[2017-06-12 12:12] LABS: METAMYELOCYTE 3 % (0-2); PLATELET ESTIMATE ADEQUATE (NORMAL)
[2017-06-12] MEDS: HEPARIN NA (PORCINE) 5,000 UNITS/ML 1ML VIAL IVPUSH PRN (14:38)
[2017-06-12] MEDS: HEPARIN INFUSION - 500 ML IVPB SCH ×2 (14:41→15:07)
[2017-06-12] MEDS ORDERED: morphine CARPU-JECT 2 MG/1 ML DISP.SYRIN IVPUSH PRN (14:47)
[2017-06-12] MEDS ORDERED: HEPARIN NA (PORCINE) 5,000 UNITS/ML 1ML VIAL IVPUSH ONE (14:48)
--- NOTE | 2017-06-12 15:28 | PN ---
Progress Note, Physician History of Present Illness: patient stable ankle pain wbc marginally down - Current Medication List Current Medications: Active Medications Acetaminophen (Tylenol -) 325 mg PO Q6H PRN PRN Reason: PAIN LEVEL 6-10 Last Admin: 06/12/17 15:09 Dose: 325 mg Heparin Sodium (Porcine) (Heparin -) 1,000 unit IVPUSH PRN PRN PRN Reason: Heparin Last Admin: 06/11/17 18:01 Dose: 1,000 unit Heparin Sodium (Porcine) (Heparin -) 5,000 unit IVPUSH PRN PRN PRN Reason: Heparin Last Admin: 06/09/17 03:38 Dose: 5,000 unit Piperacillin Sod/Tazobactam Sod (Zosyn 3.375gm Ivpb (Pre-Docked)) 50 mls @ 100 mls/hr IVPB Q8H-IV SILVANA PRN Reason: Protocol Last Admin: 06/12/17 10:27 Dose: 100 mls/hr Heparin Sodium/Dextrose (Heparin Infusion -) 500 mls @ 20 mls/hr IVPB TITR SILVANA ; 1,000 UNITS/HR PRN Reason: Protocol Last Admin: 06/12/17 15:07 Dose: 32 mls/hr Morphine Sulfate (Morphine Injection -) 2 mg IVPUSH Q6H PRN PRN Reason: PAIN Last Admin: 06/12/17 15:19 Dose: 2 mg Ondansetron HCl (Zofran Injection) 4 mg IVPB Q6H PRN PRN Reason: NAUSEA Oxycodone HCl (Roxicodone -) 5 mg PO Q6H PRN PRN Reason: PAIN LEVEL 6-10 Last Admin: 06/12/17 04:06 Dose: 5 mg - Objective Vital Signs: Vital Signs Temperature 98.3 F 06/12/17 14:04 Pulse Rate 102 H 06/12/17 14:04 Respiratory Rate 18 06/12/17 14:04 Blood Pressure 145/76 06/12/17 14:04 O2 Sat by Pulse Oximetry (%) 97 06/12/17 06:00 Constitutional: Yes: Calm, Mild Distress Cardiovascular: Yes: S1, S2 Respiratory: Yes: Regular, CTA Bilaterally Gastrointestinal: Yes: Normal Bowel Sounds, Soft Musculoskeletal: Yes: Other Extremities: Yes: Other Neurological: Yes: Alert, Oriented Psychiatric: Yes: Alert, Oriented Labs: CBC, BMP 06/12/17 05:55 06/12/17 05:55 INR, PTT INR 1.12 (0.82-1.09) 06/06/17 14:45 Assessment/Plan Problem List - Problems (1) Acute kidney injury Code(s): N17.9 - ACUTE KIDNEY FAILURE, UNSPECIFIED (2) Creatinine elevation Code(s): R79.89 - OTHER SPECIFIED ABNORMAL FINDINGS OF BLOOD CHEMISTRY (3) Hyperkalemia Code(s): E87.5 - HYPERKALEMIA (4) Kidney stones Code(s): N20.0 - CALCULUS OF KIDNEY (5) Obstruction of kidney Code(s): N28.89 - OTHER SPECIFIED DISORDERS OF KIDNEY AND URETER (6) Polycythemia Code(s): D75.1 - SECONDARY POLYCYTHEMIA (7) Dvt femoral (deep venous thrombosis) Code(s): I82.419 - ACUTE EMBOLISM AND THROMBOSIS OF UNSPECIFIED FEMORAL VEIN 8 leukocytosis plan urine cx negative post ivc filter patient for stent placement tomorrow rest as per primary
--- NOTE | 2017-06-12 17:08 | PN ---
Progress Note (short form) - Note Progress Note: RENAL Pt awake and alert c/o bilateral foot pain nephrostomy working well Last Vital Signs Temp Pulse Resp BP Pulse Ox 98.3 F 102 H 18 145/76 98 06/12/17 14:04 06/12/17 14:04 06/12/17 14:04 06/12/17 14:04 06/12/17 09:00 lungs clear cvs s1s2 rr abd soft ext pedal edema, has good pulses bilat, has pain at left MTP joint neuro a+ox3 CBC, BMP 06/12/17 05:55 06/12/17 05:55 Current Medications Generic Name Dose Route Start Last Admin Trade Name Freq PRN Reason Stop Dose Admin Acetaminophen 325 mg 06/08/17 19:48 06/12/17 15:09 Tylenol - PO 325 mg Q6H PRN Administration PAIN LEVEL 6-10 Heparin Sodium (Porcine) 1,000 unit 06/08/17 19:00 06/11/17 18:01 Heparin - IVPUSH 1,000 unit PRN PRN Administration Heparin Heparin Sodium (Porcine) 5,000 unit 06/08/17 19:00 06/09/17 03:38 Heparin - IVPUSH 5,000 unit PRN PRN Administration Heparin Piperacillin Sod/Tazobactam Sod 50 mls @ 100 mls/hr 06/10/17 14:45 06/12/17 10: 27 Zosyn 3.375gm Ivpb (Pre-Docked) IVPB 100 mls/hr Q8H-IV SILVANA Administration Protocol Heparin Sodium/Dextrose 500 mls @ 20 mls/hr 06/12/17 15:00 06/12/17 15:07 Heparin Infusion - IVPB 32 mls/hr TITR SILVANA Administration Protocol 1,000 UNITS/HR Morphine Sulfate 2 mg 06/12/17 14:47 06/12/17 15:19 Morphine Injection - IVPUSH 2 mg Q6H PRN Administration PAIN Ondansetron HCl 4 mg 06/06/17 15:38 Zofran Injection IVPB Q6H PRN NAUSEA Oxycodone HCl 5 mg 06/08/17 19:48 06/12/17 04:06 Roxicodone - PO 5 mg Q6H PRN Administration PAIN LEVEL 6-10 Impression 1. 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 obstructive uropathy 3. CKD 4. nephrolithiasis 5. polycythemia- 6. hyperkalemia- may have been worsened by ramipril which was used for polycythemia 7 likely has ckd from nephrolithiasis 8. s/p fever with leukocytosis Plan agree with increasing the heparin goal he appears to have superficial phlebitis which may be causing pain. The erythema over the left 1st MTP joint is suspicious for gout doubt superficial phlebityis at that level would give a few doses of colchicine starting 0.6 daily +/- steroids if ok with ID MV
[2017-06-12] MEDS ORDERED: COLCHICINE 0.6 MG TABLET (FP) PO ONE ×2 (18:24→20:45)
[2017-06-13] MEDS ORDERED: ceFAZolin SODIUM 1 GM VIAL IVPB ONE
[2017-06-13] MEDS: PIPERACILLIN/TAZOB 3.375 GM 50 ML IVPB SCH ×3 (01:53→17:25)
[2017-06-13 07:20] LABS: MCH 24.7 pg (25.7-33.7); MCHC 32.1 g/dl (32.0-35.9); MEAN PLT VOLUME 8.7 fl (7.5-11.1); PLATELET COUNT 338 K/MM3 (134-434); RDW 15.8 % (11.9-15.9); WHITE BLOOD COUNT 15.5 K/mm3 (4.0-10.0)
[2017-06-13 07:45] LABS: INR 1.17 (0.82-1.09); PROTHROMBIN TIME (PATIENT) 12.9 SEC (9.98-11.88)
[2017-06-13 07:47] LABS: ANION GAP 10 (8-16); CALCIUM 9.3 mg/dL (8.5-10.1); CO2 26 mmol/L (21-32); CREATININE 1.1 mg/dL (0.7-1.3); GLUCOSE,RANDOM 89 mg/dL (74-106)
--- NOTE | 2017-06-13 08:49 | PN ---
Physical Exam: SUBJECTIVE: Patient seen and examined at bedside. C/o pain to left ankle. Feels unsteady and is unable to bear weight. OBJECTIVE: Vital Signs 3 Period Temp Pulse Resp BP Sys/Aguirre Pulse Ox Last 24 Hr 98 F-98.5 F 72-102 18-18 132-145/76-90 98-98 GENERAL: The patient is awake, alert, and fully oriented, in no acute distress. HEAD: Normal with no signs of trauma. NECK: Trachea midline, full range of motion, supple. LUNGS: Breath sounds equal, clear to auscultation bilaterally, no wheezes. HEART: Regular rate and rhythm, S1, S2 without murmur. ABDOMEN: Soft, nontender, nondistended, normoactive bowel sounds. : Nephrostomy tube in place with s/s drainage. EXTREMITIES: 2+ PT/DP pulses, warm, well-perfused, no edema. Left ankle swelling without erythema present. NEUROLOGICAL: Cranial nerves II through XII grossly intact. Normal speech, gait not observed. PSYCH: Normal mood, normal affect. SKIN: Warm, dry, normal turgor, no rashes or lesions noted Laboratory Results - last 24 hr 3 06/12/17 06/12/17 06/12/17 05:55 05:55 12:40 WBC 16.7 H RBC 5.46 Hgb 13.7 Hct 42.1 MCV 77.1 L MCH 25.2 L MCHC 32.7 RDW 16.0 H Plt Count 275 MPV 8.6 Neutrophils % 71.0 Lymphocytes % 12.0 Monocytes % 9.0 Eosinophils % 4.0 Metamyelocytes 3 H Differential Comment Manual diff done Reactive Lymphocytes 1 Platelet Estimate Adequate INR PTT (Actin FS) 44.8 H Sodium 137 Potassium 4.0 Chloride 100 Carbon Dioxide 28 Anion Gap 9 BUN 18 Creatinine 1.2 Creat Clearance w eGFR > 60 Random Glucose 88 Uric Acid Calcium 8.7 Total Bilirubin 0.9 AST 44 H D ALT 79 H D Alkaline Phosphatase 128 H D Total Protein 6.3 L Albumin 2.9 L 3 06/12/17 06/12/17 06/13/17 16:29 18:30 05:35 WBC 15.5 H RBC 5.26 Hgb 13.0 Hct 40.5 MCV 77.0 L MCH 24.7 L MCHC 32.1 RDW 15.8 Plt Count 338 D MPV 8.7 Neutrophils % Y Lymphocytes % Y Monocytes % Eosinophils % Metamyelocytes Differential Comment Reactive Lymphocytes Platelet Estimate INR PTT (Actin FS) 69.7 H D Sodium Potassium Chloride Carbon Dioxide Anion Gap BUN Creatinine Creat Clearance w eGFR Random Glucose Uric Acid 6.4 Calcium Total Bilirubin AST ALT Alkaline Phosphatase Total Protein Albumin 3 06/13/17 06/13/17 05:35 05:35 WBC RBC Hgb Hct MCV MCH MCHC RDW Plt Count MPV Neutrophils % Lymphocytes % Monocytes % Eosinophils % Metamyelocytes Differential Comment Reactive Lymphocytes Platelet Estimate INR 1.17 H PTT (Actin FS) Sodium 138 Potassium 4.1 Chloride 102 Carbon Dioxide 26 Anion Gap 10 BUN 18 Creatinine 1.1 Creat Clearance w eGFR Random Glucose 89 Uric Acid Calcium 9.3 Total Bilirubin AST ALT Alkaline Phosphatase Total Protein Albumin Active Medications 3 Generic Name Dose Route Start Last Admin Trade Name Freq PRN Reason Stop Dose Admin Acetaminophen 325 mg 06/08/17 19:48 06/12/17 22:21 Tylenol - PO 325 mg Q6H PRN Administration PAIN LEVEL 6-10 Heparin Sodium (Porcine) 1,000 unit 06/08/17 19:00 06/11/17 18:01 Heparin - IVPUSH 1,000 unit PRN PRN Administration Heparin Heparin Sodium (Porcine) 5,000 unit 06/08/17 19:00 06/09/17 03:38 Heparin - IVPUSH 5,000 unit PRN PRN Administration Heparin Piperacillin Sod/Tazobactam Sod 50 mls @ 100 mls/hr 06/10/17 14:45 06/13/17 01: 53 Zosyn 3.375gm Ivpb (Pre-Docked) IVPB 100 mls/hr Q8H-IV SILVANA Administration Protocol Heparin Sodium/Dextrose 500 mls @ 20 mls/hr 06/12/17 15:00 06/12/17 15:07 Heparin Infusion - IVPB 32 mls/hr TITR SILVANA Administration Protocol 1,000 UNITS/HR Morphine Sulfate 2 mg 06/12/17 14:47 06/12/17 15:19 Morphine Injection - IVPUSH 2 mg Q6H PRN Administration PAIN Ondansetron HCl 4 mg 06/06/17 15:38 Zofran Injection IVPB Q6H PRN NAUSEA Oxycodone HCl 5 mg 06/08/17 19:48 06/12/17 22:19 Roxicodone - PO 5 mg Q6H PRN Administration PAIN LEVEL 6-10 Microbiology 06/10/17 15:00 Urine - Urine Nephrostomy Tube Right Urine Culture - Final NO GROWTH OBTAINED 06/06/17 15:20 Urine - Urine Clean Catch Urine Culture - Final NO GROWTH OBTAINED ASSESSMENT/PLAN: A: 51yo man with PMH PCV with pyuria and leukocytosis 2/2 obstructive uropathy. Pt with superficial thrombi in b/l distal right lesser saphenous vein and proximal and mid left lesser saphenous veins on heparin gtt s/p IVC filter. P: 1. Right hydronephrosis 2/2 obstructive uropathy - percutaneous urostomy drain - due for stenting today - Zosyn 3.375g q8h (Day 4) 2. UTI - Zosyn 3.375g - urine cx- No growth obtained - appreciate ID 3. thrombi in b/l lesser saphenous veins - heparin gtt- hold neonatologist for stent - titrate per protocol - increase therapeutic level to 60 sec - transition to NOAC once stent is stable - IVC filter - VQ scan (-) PE 4. h/o Polycythemia vera - no evidence of acute active disease - trend CBC - platelets uptrending- will monitor 5. gout vs. pseudogout - less likely gout given uric acid- 6.4 - colchicine 0.6 daily - consider steroids if not improved 6. Mobitz Type I heart block - Per cardiology, tele showed episode of mobitz I second degree avb during sleep- - Likely due to increased vagal tone during sleep and possibly BAL - Outpatient workup for possible BAL 7. MENDOZA - resolved - likely from obstructive uropathy - trend BMP 8. Bandemia - ? atypical MPN 9. Leukocytosis - downtrending - trend CBC 10. F/E/N - NPO after breakfast - replete prn 11. PPX - heparin gtt Dispo- requires continued inpatient treatment of his scute medical conditions Visit type - Emergency Visit Emergency Visit: Yes ED Registration Date: 06/06/17 Care time: The patient presented to the Emergency Department on the above date and was hospitalized for further evaluation of their emergent condition. - New Patient This patient is new to me today: No - Critical Care Critical Care patient: No
[2017-06-13] MEDS: oxyCODONE HCL 5 MG TABLET PO PRN ×2 (08:50→23:01)
[2017-06-13] MEDS: ACETAMINOPHEN 325 MG TABLET (FP) PO PRN ×2 (08:53→22:59)
[2017-06-13] MEDS ORDERED: COLCHICINE 0.6 MG TABLET (FP) PO SCH ×2 (10:00→11:00)
--- NOTE | 2017-06-13 10:58 | PN ---
Progress Note (short form) - Note Progress Note: s: no cp sob palps dizzy; still with ankle edema bl with bl foot pain as well but better today o: Vital Signs Period Temp Pulse Resp BP Sys/Aguirre Pulse Ox Last 24 Hr 98 F-98.5 F 72-102 18-18 132-145/76-90 98 nad no jvd rrr s1s2 no mrg cta bl nl eff aaox3 trace ankle edema bl abd nt nd pos bs no jaundice diaphoresis Current Medications Generic Name Dose Route Start Last Admin Trade Name Freq PRN Reason Stop Dose Admin Acetaminophen 325 mg 06/08/17 19:48 06/13/17 08:53 Tylenol - PO 325 mg Q6H PRN Administration PAIN LEVEL 6-10 Colchicine 0.6 mg 06/14/17 10:00 Colcrys - PO DAILY SILVANA Heparin Sodium (Porcine) 1,000 unit 06/08/17 19:00 06/11/17 18:01 Heparin - IVPUSH 1,000 unit PRN PRN Administration Heparin Heparin Sodium (Porcine) 5,000 unit 06/08/17 19:00 06/09/17 03:38 Heparin - IVPUSH 5,000 unit PRN PRN Administration Heparin Piperacillin Sod/Tazobactam Sod 50 mls @ 100 mls/hr 06/10/17 14:45 06/13/17 09: 09 Zosyn 3.375gm Ivpb (Pre-Docked) IVPB 100 mls/hr Q8H-IV SILVANA Administration Protocol Heparin Sodium/Dextrose 500 mls @ 20 mls/hr 06/12/17 15:00 06/12/17 15:07 Heparin Infusion - IVPB 32 mls/hr TITR SILVANA Administration Protocol 1,000 UNITS/HR Morphine Sulfate 2 mg 06/12/17 14:47 06/12/17 15:19 Morphine Injection - IVPUSH 2 mg Q6H PRN Administration PAIN Ondansetron HCl 4 mg 06/06/17 15:38 Zofran Injection IVPB Q6H PRN NAUSEA Oxycodone HCl 5 mg 06/08/17 19:48 06/13/17 08:50 Roxicodone - PO 5 mg Q6H PRN Administration PAIN LEVEL 6-10 CBC, BMP 06/13/17 05:35 06/13/17 05:35 ecg 06/06/17: sr, nl intervals, no ischemic changes echo 05/2017: nl lv/rv, no sig valve path a/p: 51 m hx kidney stones sent to er 2/2 renal stones and hari. renal stones, hari, hyperkalemia: -renal following -cr improved, k improved -Had nephrostomy tube and planned for ureter stent today (no cardiac contraindications) bradycardia, wenckebach, mobitz I: -tele showed episode of mobitz I second degree avb during sleep-->likely due to increased vagal tone during sleep and BAL. No particular interventions/ treatment needed for wenckebach but pt should have formal sleep study as outpt as his inpt screening test was abnormal. -echo, tsh unremarkable here dvts: -found to have bl dvts here, now on hep gtt -v/q scan low prob -had ivc filter placed here as well
[2017-06-13] MEDS: HEPARIN INFUSION - 500 ML IVPB SCH ×5 (11:03→21:15)
--- NOTE | 2017-06-13 11:59 | PN ---
Progress Note, Physician History of Present Illness: pulmonary no distress,-sob,-cp ,less lower ext pain.pt scheduled for ureteral stent today. - Current Medication List Current Medications: Active Medications Acetaminophen (Tylenol -) 325 mg PO Q6H PRN PRN Reason: PAIN LEVEL 6-10 Last Admin: 06/13/17 08:53 Dose: 325 mg Colchicine (Colcrys -) 0.6 mg PO DAILY SILVANA Last Admin: 06/13/17 11:39 Dose: 0.6 mg Heparin Sodium (Porcine) (Heparin -) 1,000 unit IVPUSH PRN PRN PRN Reason: Heparin Last Admin: 06/11/17 18:01 Dose: 1,000 unit Heparin Sodium (Porcine) (Heparin -) 5,000 unit IVPUSH PRN PRN PRN Reason: Heparin Last Admin: 06/09/17 03:38 Dose: 5,000 unit Piperacillin Sod/Tazobactam Sod (Zosyn 3.375gm Ivpb (Pre-Docked)) 50 mls @ 100 mls/hr IVPB Q8H-IV SILVANA PRN Reason: Protocol Last Admin: 06/13/17 09:09 Dose: 100 mls/hr Heparin Sodium/Dextrose (Heparin Infusion -) 500 mls @ 20 mls/hr IVPB TITR SILVANA ; 1,000 UNITS/HR PRN Reason: Protocol Last Admin: 06/13/17 11:03 Dose: 34 mls/hr Morphine Sulfate (Morphine Injection -) 2 mg IVPUSH Q6H PRN PRN Reason: PAIN Last Admin: 06/12/17 15:19 Dose: 2 mg Ondansetron HCl (Zofran Injection) 4 mg IVPB Q6H PRN PRN Reason: NAUSEA Oxycodone HCl (Roxicodone -) 5 mg PO Q6H PRN PRN Reason: PAIN LEVEL 6-10 Last Admin: 06/13/17 08:50 Dose: 5 mg - Objective Vital Signs: Vital Signs Temperature 98 F 06/13/17 06:00 Pulse Rate 72 06/13/17 06:00 Respiratory Rate 18 06/13/17 06:00 Blood Pressure 138/78 06/13/17 06:00 O2 Sat by Pulse Oximetry (%) 98 06/12/17 21:00 Constitutional: Yes: Well Nourished, Calm Eyes: Yes: WNL HENT: Yes: WNL Neck: Yes: WNL Cardiovascular: Yes: Regular Rate and Rhythm, S1, S2 Respiratory: Yes: CTA Bilaterally Gastrointestinal: Yes: WNL Edema: Yes Edema: LLE: Trace, RLE: Trace Labs: CBC, BMP 06/13/17 05:35 06/13/17 05:35 INR, PTT INR 1.17 (0.82-1.09) H 06/13/17 05:35 Problem List - Problems (1) Acute kidney injury Code(s): N17.9 - ACUTE KIDNEY FAILURE, UNSPECIFIED (2) Creatinine elevation Code(s): R79.89 - OTHER SPECIFIED ABNORMAL FINDINGS OF BLOOD CHEMISTRY (3) Hyperkalemia Code(s): E87.5 - HYPERKALEMIA (4) Kidney stones Code(s): N20.0 - CALCULUS OF KIDNEY (5) Obstruction of kidney Code(s): N28.89 - OTHER SPECIFIED DISORDERS OF KIDNEY AND URETER (6) Polycythemia Code(s): D75.1 - SECONDARY POLYCYTHEMIA (7) Dvt femoral (deep venous thrombosis) Code(s): I82.419 - ACUTE EMBOLISM AND THROMBOSIS OF UNSPECIFIED FEMORAL VEIN Assessment/Plan IMP BILATERAL DVT MENDOZA IM PROVING OBSTRUCTIVE UROPATHY S/P NEPHROSTOMY ERYTHROCYTOSIS R/O BAL PT GIVES H/O SNORING PLAN ANTICOAGULATION SLEEP STUDIES OUTPATIENT URETERAL STENT TODAY DR LAURA Problem List - Problems (1) Acute kidney injury Code(s): N17.9 - ACUTE KIDNEY FAILURE, UNSPECIFIED (2) Creatinine elevation Code(s): R79.89 - OTHER SPECIFIED ABNORMAL FINDINGS OF BLOOD CHEMISTRY (3) Hyperkalemia Code(s): E87.5 - HYPERKALEMIA (4) Kidney stones Code(s): N20.0 - CALCULUS OF KIDNEY (5) Obstruction of kidney Code(s): N28.89 - OTHER SPECIFIED DISORDERS OF KIDNEY AND URETER (6) Polycythemia Code(s): D75.1 - SECONDARY POLYCYTHEMIA (7) Dvt femoral (deep venous thrombosis) Code(s): I82.419 - ACUTE EMBOLISM AND THROMBOSIS OF UNSPECIFIED FEMORAL VEIN
--- NOTE | 2017-06-13 16:10 | PN ---
Progress Note (short form) - Note Progress Note: RENAL Pt awake and alert pain is better nephrostomy working well Last Vital Signs Temp Pulse Resp BP Pulse Ox 97.6 F 90 16 132/94 98 06/13/17 14:16 06/13/17 14:16 06/13/17 14:16 06/13/17 14:16 06/12/17 21:00 lungs clear cvs s1s2 rr abd soft ext pedal edema, has good pulses bilat, neuro a+ox3 CBC, BMP 06/13/17 05:35 06/13/17 05:35 Current Medications Generic Name Dose Route Start Last Admin Trade Name Freq PRN Reason Stop Dose Admin Acetaminophen 325 mg 06/08/17 19:48 06/13/17 08:53 Tylenol - PO 325 mg Q6H PRN Administration PAIN LEVEL 6-10 Colchicine 0.6 mg 06/13/17 11:00 06/13/17 11:39 Colcrys - PO 0.6 mg DAILY SILVANA Administration Heparin Sodium (Porcine) 1,000 unit 06/08/17 19:00 06/11/17 18:01 Heparin - IVPUSH 1,000 unit PRN PRN Administration Heparin Heparin Sodium (Porcine) 5,000 unit 06/08/17 19:00 06/09/17 03:38 Heparin - IVPUSH 5,000 unit PRN PRN Administration Heparin Piperacillin Sod/Tazobactam Sod 50 mls @ 100 mls/hr 06/10/17 14:45 06/13/17 09: 09 Zosyn 3.375gm Ivpb (Pre-Docked) IVPB 100 mls/hr Q8H-IV SILVANA Administration Protocol Heparin Sodium/Dextrose 500 mls @ 20 mls/hr 06/12/17 15:00 06/13/17 13:05 Heparin Infusion - IVPB Not Given TITR SILVANA Protocol 1,000 UNITS/HR Morphine Sulfate 2 mg 06/12/17 14:47 06/12/17 15:19 Morphine Injection - IVPUSH 2 mg Q6H PRN Administration PAIN Ondansetron HCl 4 mg 06/06/17 15:38 Zofran Injection IVPB Q6H PRN NAUSEA Oxycodone HCl 5 mg 06/08/17 19:48 06/13/17 08:50 Roxicodone - PO 5 mg Q6H PRN Administration PAIN LEVEL 6-10 Impression 1. 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 obstructive uropathy 3. CKD 4. nephrolithiasis 5. polycythemia- 6. hyperkalemia- may have been worsened by ramipril which was used for polycythemia 7 likely has ckd from nephrolithiasis 8. s/p fever with leukocytosis- bandemia Plan continue colchicine consider rheum consult answered all his questions might need to have a left nephrectomy. Would do renal scan before this MV
--- NOTE | 2017-06-13 17:44 | PN ---
Progress Note, Physician History of Present Illness: stable no new issues patient going for stent placement today - Current Medication List Current Medications: Active Medications Acetaminophen (Tylenol -) 325 mg PO Q6H PRN PRN Reason: PAIN LEVEL 6-10 Last Admin: 06/13/17 08:53 Dose: 325 mg Colchicine (Colcrys -) 0.6 mg PO DAILY SILVANA Last Admin: 06/13/17 11:39 Dose: 0.6 mg Heparin Sodium (Porcine) (Heparin -) 1,000 unit IVPUSH PRN PRN PRN Reason: Heparin Last Admin: 06/11/17 18:01 Dose: 1,000 unit Heparin Sodium (Porcine) (Heparin -) 5,000 unit IVPUSH PRN PRN PRN Reason: Heparin Last Admin: 06/09/17 03:38 Dose: 5,000 unit Piperacillin Sod/Tazobactam Sod (Zosyn 3.375gm Ivpb (Pre-Docked)) 50 mls @ 100 mls/hr IVPB Q8H-IV SILVANA PRN Reason: Protocol Last Admin: 06/13/17 17:25 Dose: 100 mls/hr Heparin Sodium/Dextrose (Heparin Infusion -) 500 mls @ 20 mls/hr IVPB TITR SILVANA ; 1,000 UNITS/HR PRN Reason: Protocol Last Admin: 06/13/17 13:05 Dose: Not Given Morphine Sulfate (Morphine Injection -) 2 mg IVPUSH Q6H PRN PRN Reason: PAIN Last Admin: 06/12/17 15:19 Dose: 2 mg Ondansetron HCl (Zofran Injection) 4 mg IVPB Q6H PRN PRN Reason: NAUSEA Oxycodone HCl (Roxicodone -) 5 mg PO Q6H PRN PRN Reason: PAIN LEVEL 6-10 Last Admin: 06/13/17 08:50 Dose: 5 mg - Objective Vital Signs: Vital Signs Temperature 97.6 F 06/13/17 14:16 Pulse Rate 90 06/13/17 14:16 Respiratory Rate 16 06/13/17 14:16 Blood Pressure 132/94 06/13/17 14:16 O2 Sat by Pulse Oximetry (%) 98 06/13/17 09:00 Constitutional: Yes: No Distress, Calm Cardiovascular: Yes: S1, S2 Respiratory: Yes: Regular, CTA Bilaterally Gastrointestinal: Yes: Normal Bowel Sounds, Soft Extremities: Yes: Other (ankle edema) Neurological: Yes: Alert, Oriented Psychiatric: Yes: Alert Labs: CBC, BMP 06/13/17 05:35 06/13/17 05:35 INR, PTT INR 1.17 (0.82-1.09) H 06/13/17 05:35 Assessment/Plan Problem List - Problems (1) Acute kidney injury Code(s): N17.9 - ACUTE KIDNEY FAILURE, UNSPECIFIED (2) Creatinine elevation Code(s): R79.89 - OTHER SPECIFIED ABNORMAL FINDINGS OF BLOOD CHEMISTRY (3) Hyperkalemia Code(s): E87.5 - HYPERKALEMIA (4) Kidney stones Code(s): N20.0 - CALCULUS OF KIDNEY (5) Obstruction of kidney Code(s): N28.89 - OTHER SPECIFIED DISORDERS OF KIDNEY AND URETER (6) Polycythemia Code(s): D75.1 - SECONDARY POLYCYTHEMIA (7) Dvt femoral (deep venous thrombosis) Code(s): I82.419 - ACUTE EMBOLISM AND THROMBOSIS OF UNSPECIFIED FEMORAL VEIN 8 leukocytosis plan urine cx negative post ivc filter stent placement today
[2017-06-13] MEDS ORDERED: DEXAMETHASONE SOD PHOSPHATE 4 MG/1 ML VIAL ONE (19:00)
[2017-06-13] MEDS ORDERED: LIDOCAINE HCL/PF 2% SDV 5ML VIAL ONE (19:00)
[2017-06-13] MEDS ORDERED: PROPOFOL 20 ML ONE (19:01)
[2017-06-13] MEDS ORDERED: HYDROmorphone HCL CARPU-JECT 1 MG/1 ML DISP.SYRIN IVPUSH PRN (19:40)
--- NOTE | 2017-06-13 19:54 | OP ---
Operative Note - Note: Operative Date: 06/13/17 Pre-Operative Diagnosis: right upj stone/acute renal failure s/p PNT Operation: cystoscopy/right retrograde pyelogram/right ureteroscopic stone manipulation/right stent placement/removal of right nephrostomy tube Post-Operative Diagnosis: Same as Pre-op Surgeon: Milan Singh Anesthesia: General
[2017-06-13] MEDS ORDERED: ONDANSETRON 4 MG/2 ML VIAL IVPB PRN (20:26)
[2017-06-13] MEDS ORDERED: HYDROmorphone HCL 2 MG TABLET PO PRN (20:26)
[2017-06-13] MEDS ORDERED: KETOROLAC TROMETHAMINE 10 MG TABLET PO PRN (20:26)
[2017-06-14] MEDS ORDERED: PIPERACILLIN/TAZOBACTAM 3.375 GM VIAL IVPB ONE ×3 (02:30→16:52)
[2017-06-14] MEDS: PIPERACILLIN/TAZOB 3.375 GM 3.375 GM in DEXTROSE 5%-WATER - 50 ML IVPB SCH ×3 (02:32→17:08)
[2017-06-14] MEDS: HEPARIN NA (PORCINE) 5,000 UNITS/ML 1ML VIAL IVPUSH PRN (04:05)
[2017-06-14] MEDS: HEPARIN INFUSION - 500 ML IVPB SCH ×4 (04:06→22:35)
[2017-06-14 08:10] LABS: BASOPHIL 0.2 % (0-2.0); EOSINOPHIL 0.1 % (0-4.5); MCH 24.9 pg (25.7-33.7); MCHC 31.9 g/dl (32.0-35.9); MEAN CELL VOLUME 78.1 fl (80-96); MEAN PLT VOLUME 8.1 fl (7.5-11.1); NEUTROPHILS 86.7 % (42.8-82.8); PLATELET COUNT 340 K/MM3 (134-434); RDW 15.6 % (11.9-15.9); WHITE BLOOD COUNT 15.8 K/mm3 (4.0-10.0)
[2017-06-14 08:23] LABS: ANION GAP 8 (8-16); CALCIUM 9.6 mg/dL (8.5-10.1); CO2 26 mmol/L (21-32); GLUCOSE,RANDOM 119 mg/dL (74-106)
[2017-06-14 08:24] LABS: CREATININE 1.1 mg/dL (0.7-1.3)
[2017-06-14] MEDS ORDERED: DEXTROSE 5%-WATER - 50 ML IVPB ONE ×2 (08:56→16:52)
--- NOTE | 2017-06-14 09:10 | PN ---
Physical Exam: SUBJECTIVE: Patient seen and examined Pt c/o pain on urination,reports hematuria improving, denies abdominal pain, N/V/D,fever, chills, cp, sob or palpitations. OBJECTIVE: Vital Signs Period Temp Pulse Resp BP Sys/Aguirre Pulse Ox Last 24 Hr 97.6 F-99.5 F 70-94 14-24 125-152/54-94 96-98 GENERAL: The patient is awake, alert, and fully oriented, in no acute distress. HEAD: Normal with no signs of trauma. EYES: PERRL, extraocular movements intact, sclera anicteric, conjunctiva clear. No ptosis. ENT: Ears normal, nares patent, oropharynx clear without exudates, moist mucous membranes. NECK: Trachea midline, full range of motion, supple. LUNGS: Breath sounds equal, clear to auscultation bilaterally, no wheezes, no crackles, no accessory muscle use. HEART: Regular rate and rhythm, S1, S2 without murmur, rub or gallop. ABDOMEN: Soft, nontender, nondistended, normoactive bowel sounds, no guarding, no rebound, no hepatosplenomegaly, no masses. EXTREMITIES: 2+ pulses, warm, well-perfused, mild swelling - Lt foot NEUROLOGICAL: Cranial nerves II through XII grossly intact. Normal speech, gait not observed. PSYCH: Normal mood, normal affect. SKIN: Warm, dry, normal turgor, no rashes or lesions noted Laboratory Results - last 24 hr 06/13/17 06/14/17 06/14/17 05:35 03:15 06:30 WBC 15.5 H RBC 5.26 Hgb 13.0 Hct 40.5 MCV 77.0 L MCH 24.7 L MCHC 32.1 RDW 15.8 Plt Count 338 D MPV 8.7 Neutrophils % 64.0 Lymphocytes % 12.0 Monocytes % Eosinophils % Basophils % Band Neutrophils 22.0 H D PTT (Actin FS) 59.8 H 84.2 H D Sodium Potassium Chloride Carbon Dioxide Anion Gap BUN Creatinine Random Glucose Calcium 06/14/17 06/14/17 06:30 06:30 WBC 15.8 H RBC 5.55 Hgb 13.8 Hct 43.3 MCV 78.1 L MCH 24.9 L MCHC 31.9 L RDW 15.6 Plt Count 340 MPV 8.1 Neutrophils % 86.7 H D Lymphocytes % 8.7 D Monocytes % 4.3 Eosinophils % 0.1 D Basophils % 0.2 Band Neutrophils PTT (Actin FS) Sodium 137 Potassium 5.2 H D Chloride 103 Carbon Dioxide 26 Anion Gap 8 BUN 20 H Creatinine 1.1 Random Glucose 119 H D Calcium 9.6 Active Medications Generic Name Dose Route Start Last Admin Trade Name Freq PRN Reason Stop Dose Admin Acetaminophen 325 mg 06/13/17 20:26 06/13/17 22:59 Tylenol - PO 325 mg Q6H PRN Administration PAIN LEVEL 6-10 Colchicine 0.6 mg 06/14/17 10:00 Colcrys - PO DAILY SILVANA Heparin Sodium (Porcine) 1,000 unit 06/08/17 19:00 06/14/17 04:05 Heparin - IVPUSH 1,000 unit PRN PRN Administration Heparin Heparin Sodium (Porcine) 5,000 unit 06/08/17 19:00 06/09/17 03:38 Heparin - IVPUSH 5,000 unit PRN PRN Administration Heparin Hydromorphone HCl 1 mg 06/13/17 19:40 Dilaudid Injection - IVPUSH 06/16/17 19:41 [id number] PRN PAIN Hydromorphone HCl 2 mg 06/13/17 20:26 Dilaudid - PO 06/14/17 23:59 Q6H PRN SEVERE PAIN Heparin Sodium/Dextrose 500 mls @ 20 mls/hr 06/12/17 15:00 06/14/17 04:06 Heparin Infusion - IVPB 36 mls/hr TITR SILVANA Administration Protocol 1,000 UNITS/HR Piperacillin Sod/Tazobactam 50 mls @ 100 mls/hr 06/14/17 02:00 06/14/17 02:32 Sod 3.375 gm/ Dextrose IVPB 100 mls/hr Q8H-IV SILVANA Administration Protocol Ketorolac Tromethamine 10 mg 06/13/17 20:26 Toradol PO 06/18/17 20:25 Q6H PRN PAIN Morphine Sulfate 2 mg 06/12/17 14:47 06/12/17 15:19 Morphine Injection - IVPUSH 2 mg Q6H PRN Administration PAIN Ondansetron HCl 4 mg 06/13/17 20:26 Zofran Injection IVPB Q6H PRN NAUSEA Oxycodone HCl 5 mg 06/13/17 20:26 06/13/17 23:01 Roxicodone - PO 5 mg Q6H PRN Administration PAIN LEVEL 6-10 Ramipril 5 mg 06/14/17 10:00 Altace - PO DAILY [facility] ASSESSMENT/PLAN: This is a 51yo man with PMH PCV with pyuria and leukocytosis 2/2 obstructive uropathy. Pt with superficial thrombi in b/l distal right lesser saphenous vein and proximal and mid left lesser saphenous veins on heparin gtt s/p IVC filter. *Right hydronephrosis 2/2 obstructive uropathy - s/p removal of Rt nephrectomy tube and stent placement -06/13/17 - will cont on Zosyn 3.375g q8h (Day #4) - urology following *UTI - Zosyn 3.375g - urine cx- No growth obtained - appreciate ID - leukocytosis trending down, remains afebrile *Thrombus in b/l lesser saphenous veins - will cont heparin gtt- - titrate per protocol - transition to NOAC once stent is stable - IVC filter - VQ scan (-) PE -out pt hematology Dr. Boo [facility] * h/o Polycythemia vera - no evidence of acute active disease - trend CBC - platelets up trending- wnl -will monitor *gout vs. pseudogout- Lt foot - less likely gout given uric acid- 6.4 - will cont on colchicine 0.6 daily - will hold off steroids * Mobitz Type I heart block - Per cardiology, tele showed episode of mobitz I second degree avb during sleep- - Likely due to increased vagal tone during sleep and possibly BAL - Outpatient workup for possible BAL * MENDOZA- resolved - likely from obstructive uropathy - trend BMP *Bandemia - ? atypical MPN - will cont on abx -leukocytosis trending down - trend CBC - Urine culture neg * F/E/N - replete prn *PPX- heparin gtt Dispo- requires continued inpatient treatment of his subacute medical conditions. Visit type - Emergency Visit Emergency Visit: Yes ED Registration Date: 06/06/17 Care time: The patient presented to the Emergency Department on the above date and was hospitalized for further evaluation of their emergent condition. - New Patient This patient is new to me today: Yes Date on this admission: 06/14/17 - Critical Care Critical Care patient: No
[2017-06-14] MEDS: RAMIPRIL 5 MG CAPSULE (FP) PO SCH ×2 (09:11→09:16)
[2017-06-14] MEDS: oxyCODONE HCL 5 MG TABLET PO PRN ×2 (09:22→22:41)
[2017-06-14] MEDS: ACETAMINOPHEN 325 MG TABLET (FP) PO PRN ×2 (09:24→22:41)
--- NOTE | 2017-06-14 09:31 | PN ---
Progress Note (short form) - Note Progress Note: RENAL Pt awake and alert had cystoscopy and no longer has nephrostomy tube Last Vital Signs Temp Pulse Resp BP Pulse Ox 97.4 F L 87 20 144/77 96 06/14/17 09:11 06/14/17 09:11 06/14/17 09:11 06/14/17 09:11 06/13/17 21:30 lungs clear cvs s1s2 rr abd soft ext pedal edema, has good pulses bilat, less erythema neuro a+ox3 CBC, BMP 06/14/17 06:30 06/14/17 06:30 Current Medications Generic Name Dose Route Start Last Admin Trade Name Freq PRN Reason Stop Dose Admin Acetaminophen 325 mg 06/08/17 19:48 06/13/17 08:53 Tylenol - PO 325 mg Q6H PRN Administration PAIN LEVEL 6-10 Colchicine 0.6 mg 06/13/17 11:00 06/13/17 11:39 Colcrys - PO 0.6 mg DAILY SILVANA Administration Heparin Sodium (Porcine) 1,000 unit 06/08/17 19:00 06/11/17 18:01 Heparin - IVPUSH 1,000 unit PRN PRN Administration Heparin Heparin Sodium (Porcine) 5,000 unit 06/08/17 19:00 06/09/17 03:38 Heparin - IVPUSH 5,000 unit PRN PRN Administration Heparin Piperacillin Sod/Tazobactam Sod 50 mls @ 100 mls/hr 06/10/17 14:45 06/13/17 09: 09 Zosyn 3.375gm Ivpb (Pre-Docked) IVPB 100 mls/hr Q8H-IV SILVANA Administration Protocol Heparin Sodium/Dextrose 500 mls @ 20 mls/hr 06/12/17 15:00 06/13/17 13:05 Heparin Infusion - IVPB Not Given TITR SILVANA Protocol 1,000 UNITS/HR Morphine Sulfate 2 mg 06/12/17 14:47 06/12/17 15:19 Morphine Injection - IVPUSH 2 mg Q6H PRN Administration PAIN Ondansetron HCl 4 mg 06/06/17 15:38 Zofran Injection IVPB Q6H PRN NAUSEA Oxycodone HCl 5 mg 06/08/17 19:48 06/13/17 08:50 Roxicodone - PO 5 mg Q6H PRN Administration PAIN LEVEL 6-10 Impression 1. 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 obstructive uropathy 3. CKD 4. nephrolithiasis 5. polycythemia- 6. hyperkalemia- may have been worsened by ramipril which was used for polycythemia. Now it could be due to heparin 7 likely has ckd from nephrolithiasis 8. s/p fever with leukocytosis- bandemia 9. probable gout despite normal uric acid level- there is also an association with polycythemia due to high turnover Plan continue colchicine monitor renal function obtain urine k MV
[2017-06-14] MEDS ORDERED: COLCHICINE 0.6 MG TABLET (FP) PO SCH (10:00)
--- NOTE | 2017-06-14 15:48 | PN ---
Progress Note, Physician History of Present Illness: patient stable had stent placed nephrostomy removed no complaints wbc still high - Current Medication List Current Medications: Active Medications Acetaminophen (Tylenol -) 325 mg PO Q6H PRN PRN Reason: PAIN LEVEL 6-10 Last Admin: 06/14/17 09:24 Dose: 325 mg Colchicine (Colcrys -) 0.6 mg PO DAILY SILVANA Last Admin: 06/14/17 09:10 Dose: 0.6 mg Heparin Sodium (Porcine) (Heparin -) 1,000 unit IVPUSH PRN PRN PRN Reason: Heparin Last Admin: 06/14/17 04:05 Dose: 1,000 unit Heparin Sodium (Porcine) (Heparin -) 5,000 unit IVPUSH PRN PRN PRN Reason: Heparin Last Admin: 06/09/17 03:38 Dose: 5,000 unit Hydromorphone HCl (Dilaudid Injection -) 1 mg IVPUSH [id number] PRN PRN Reason: PAIN Stop: 06/16/17 19:41 Hydromorphone HCl (Dilaudid -) 2 mg PO Q6H PRN PRN Reason: SEVERE PAIN Stop: 06/14/17 23:59 Last Admin: 06/14/17 14:34 Dose: 2 mg Heparin Sodium/Dextrose (Heparin Infusion -) 500 mls @ 20 mls/hr IVPB TITR SILVANA ; 1,000 UNITS/HR PRN Reason: Protocol Last Admin: 06/14/17 09:07 Dose: 35 mls/hr Piperacillin Sod/Tazobactam (Sod 3.375 gm/ Dextrose) 50 mls @ 100 mls/hr IVPB Q8H-IV SILVANA PRN Reason: Protocol Last Admin: 06/14/17 09:09 Dose: 100 mls/hr Ketorolac Tromethamine (Toradol) 10 mg PO Q6H PRN PRN Reason: PAIN Stop: 06/18/17 20:25 Morphine Sulfate (Morphine Injection -) 2 mg IVPUSH Q6H PRN PRN Reason: PAIN Last Admin: 06/12/17 15:19 Dose: 2 mg Ondansetron HCl (Zofran Injection) 4 mg IVPB Q6H PRN PRN Reason: NAUSEA Oxycodone HCl (Roxicodone -) 5 mg PO Q6H PRN PRN Reason: PAIN LEVEL 6-10 Last Admin: 06/14/17 09:22 Dose: 5 mg Ramipril (Altace -) 5 mg PO DAILY SILVANA Last Admin: 06/14/17 09:16 Dose: Not Given - Objective Vital Signs: Vital Signs Temperature 98.0 F 06/14/17 15:02 Pulse Rate 80 06/14/17 15:02 Respiratory Rate 20 06/14/17 15:02 Blood Pressure 145/77 06/14/17 15:02 O2 Sat by Pulse Oximetry (%) 96 06/14/17 09:00 Constitutional: Yes: No Distress, Calm Cardiovascular: Yes: S1, S2 Respiratory: Yes: Regular, CTA Bilaterally Gastrointestinal: Yes: Normal Bowel Sounds, Soft Musculoskeletal: Yes: WNL Extremities: Yes: WNL Neurological: Yes: Alert, Oriented Psychiatric: Yes: Alert, Oriented Labs: CBC, BMP 06/14/17 06:30 06/14/17 06:30 INR, PTT INR 1.17 (0.82-1.09) H 06/13/17 05:35 Assessment/Plan Problem List - Problems (1) Acute kidney injury Code(s): N17.9 - ACUTE KIDNEY FAILURE, UNSPECIFIED (2) Creatinine elevation Code(s): R79.89 - OTHER SPECIFIED ABNORMAL FINDINGS OF BLOOD CHEMISTRY (3) Hyperkalemia Code(s): E87.5 - HYPERKALEMIA (4) Kidney stones Code(s): N20.0 - CALCULUS OF KIDNEY (5) Obstruction of kidney Code(s): N28.89 - OTHER SPECIFIED DISORDERS OF KIDNEY AND URETER (6) Polycythemia Code(s): D75.1 - SECONDARY POLYCYTHEMIA (7) Dvt femoral (deep venous thrombosis) Code(s): I82.419 - ACUTE EMBOLISM AND THROMBOSIS OF UNSPECIFIED FEMORAL VEIN 8 leukocytosis plan continue abx monitor wbc once wbc trends down will switch to oral abx rest as per primary team
--- NOTE | 2017-06-14 15:51 | OP ---
DATE OF OPERATION: 06/13/2017 PREOPERATIVE DIAGNOSES: Right ureteropelvic junction stone, status post acute renal failure. POSTOPERATIVE DIAGNOSES: Right ureteropelvic junction stone, status post acute renal failure. PROCEDURE: Cystoscopy, right retrograde pyelogram, right ureteroscopic stone manipulation, right ureteral stent placement, removal of right nephrostomy tube. ATTENDING: Leo Villanueva MD ANESTHESIA: General. DESCRIPTION OF OPERATION: Patient brought in the operating room, placed in supine position on the operating room table. General anesthesia was administered, and the patient was placed in dorsal lithotomy position. Cystoscopy was performed, and the bladder was entered. A retrograde pyelogram showed an obstructive right UPJ stone. Attempts at passing a wire proximally were unsuccessful. Ureteroscopy was utilized, and the UPJ stone was noted. At this point, a wire was passed into the kidney after manipulation of the stone with the ureteroscope. The stone dislodged and went into a lower pole calyx. The wire was passed into the kidney. At this point, the ureteroscope was removed. A 6-Portuguese 24-cm stent was then placed. The right nephrostomy tube was removed. No complications were noted. The patient tolerated the procedure very well. LEO VILLANUEVA M.D. [id number]
--- NOTE | 2017-06-14 20:13 | PN ---
Progress Note (short form) - Note Progress Note: 0930 has no new complaint NOtes LE pain improved. Still having some L ankle focal pain/swelling. PE NAD lungs- CTA CVS-reg S1S2 abd- soft, NT ext - no LE swelling; L bilat malleolar mild swelling and mild erythema medial malleolus Imp - h/o pancytosis, w/u c/w reactive polycythemia (BAL?) vs atyp/early MPN. ( note he has had mild l-cytosis/t-cytosis in past) ARF related to obstructive nephrolithiasis, s/p stenting w resolved RF b/l DVTs, resolved on f/u duplex, but evid of superficial thromboses. s/p IVCF placement prior to stenting Remains on hep gtt Reasonable to pursue long-term a/c plan in view of the pancytosis, unless ultimately felt to be a reactive picture and corrects w tx. cbc here has been reasonable, has not needed phleb plan for d/c w eliquis once final plan per urol outlined
[2017-06-15] MEDS ORDERED: PIPERACILLIN/TAZOBACTAM 3.375 GM VIAL IVPB ONE ×3 (02:34→18:38)
[2017-06-15] MEDS ORDERED: DEXTROSE 5%-WATER - 50 ML IVPB ONE ×3 (02:34→18:38)
[2017-06-15] MEDS: PIPERACILLIN/TAZOB 3.375 GM 3.375 GM in DEXTROSE 5%-WATER - 50 ML IVPB SCH ×3 (02:38→18:45)
[2017-06-15] MEDS: oxyCODONE HCL 5 MG TABLET PO PRN (05:24)
[2017-06-15] MEDS: ACETAMINOPHEN 325 MG TABLET (FP) PO PRN (05:25)
[2017-06-15] MEDS: HEPARIN INFUSION - 500 ML IVPB SCH ×2 (07:16→14:43)
[2017-06-15 07:48] LABS: MCH 25.3 pg (25.7-33.7); MCHC 32.5 g/dl (32.0-35.9); MEAN CELL VOLUME 77.9 fl (80-96); MEAN PLT VOLUME 8.1 fl (7.5-11.1); PLATELET COUNT 345 K/MM3 (134-434); RDW 15.9 % (11.9-15.9); WHITE BLOOD COUNT 17.3 K/mm3 (4.0-10.0)
[2017-06-15 07:55] LABS: ANION GAP 8 (8-16); CALCIUM 9.1 mg/dL (8.5-10.1); CO2 26 mmol/L (21-32); CREATININE 1.2 mg/dL (0.7-1.3); GLUCOSE,RANDOM 95 mg/dL (74-106)
--- NOTE | 2017-06-15 09:57 | PN ---
Progress Note (short form) - Note Progress Note: RENAL Pt awake and alert had cystoscopy and no longer has nephrostomy tube pain has disappeared hematuria Last Vital Signs Temp Pulse Resp BP Pulse Ox 97.8 F 57 L 20 141/86 96 06/15/17 05:59 06/15/17 05:59 06/15/17 05:59 06/15/17 05:59 06/14/17 21:00 lungs clear cvs s1s2 rr abd soft ext pedal edema, has good pulses bilat, less erythema neuro a+ox3 CBC, BMP 06/15/17 06:05 06/15/17 06:05 Current Medications Generic Name Dose Route Start Last Admin Trade Name Freq PRN Reason Stop Dose Admin Acetaminophen 325 mg 06/13/17 20:26 06/15/17 05:25 Tylenol - PO 325 mg Q6H PRN Administration PAIN LEVEL 6-10 Colchicine 0.6 mg 06/14/17 10:00 06/14/17 09:10 Colcrys - PO 0.6 mg DAILY SILVANA Administration Heparin Sodium (Porcine) 1,000 unit 06/08/17 19:00 06/14/17 04:05 Heparin - IVPUSH 1,000 unit PRN PRN Administration Heparin Heparin Sodium (Porcine) 5,000 unit 06/08/17 19:00 06/09/17 03:38 Heparin - IVPUSH 5,000 unit PRN PRN Administration Heparin Hydromorphone HCl 1 mg 06/13/17 19:40 Dilaudid Injection - IVPUSH 06/16/17 19:41 [id number] PRN PAIN Heparin Sodium/Dextrose 500 mls @ 20 mls/hr 06/12/17 15:00 06/15/17 09:12 Heparin Infusion - IVPB 1,650 units/hr TITR SILVANA Titration Protocol 1,000 UNITS/HR Piperacillin Sod/Tazobactam 50 mls @ 100 mls/hr 06/14/17 02:00 06/15/17 02:38 Sod 3.375 gm/ Dextrose IVPB 100 mls/hr Q8H-IV SILVANA Administration Protocol Ketorolac Tromethamine 10 mg 06/13/17 20:26 Toradol PO 06/18/17 20:25 Q6H PRN PAIN Morphine Sulfate 2 mg 06/12/17 14:47 06/12/17 15:19 Morphine Injection - IVPUSH 2 mg Q6H PRN Administration PAIN Ondansetron HCl 4 mg 06/13/17 20:26 Zofran Injection IVPB Q6H PRN NAUSEA Oxycodone HCl 5 mg 06/13/17 20:26 06/15/17 05:24 Roxicodone - PO 5 mg Q6H PRN Administration PAIN LEVEL 6-10 Ramipril 5 mg 06/14/17 10:00 06/14/17 09:16 Altace - PO Not Given DAILY SILVANA Impression 1. 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 obstructive uropathy 3. CKD 4. nephrolithiasis 5. polycythemia- 6. hyperkalemia- may have been worsened by ramipril which was used for polycythemia. Now it could be due to heparin 7 likely has ckd from nephrolithiasis 8. s/p fever with leukocytosis- bandemia 9. probable gout despite normal uric acid level- there is also an association with polycythemia due to high turnover Plan dc colchicine. Can give prn dc ketorolac especially given hematuria monitor renal function keep hydrated while having hematuria with clots MV
[2017-06-15 10:40] LABS: METAMYELOCYTE 1 % (0-2); PLATELET ESTIMATE ADEQUATE (NORMAL)
[2017-06-15] MEDS: RAMIPRIL 5 MG CAPSULE (FP) PO SCH ×2 (10:51→10:54)
--- NOTE | 2017-06-15 11:01 | PN ---
Physical Exam: SUBJECTIVE: Patient seen and examined at bedside. C/o hematuria but remains pain free. OBJECTIVE: Vital Signs Period Temp Pulse Resp BP Sys/Aguirre Pulse Ox Last 24 Hr 97.8 F-98.1 F 57-80 20-20 134-145/77-90 96 GENERAL: The patient is awake, alert, and fully oriented, in no acute distress. LUNGS: Breath sounds equal, clear to auscultation bilaterally, no wheezes, no crackles, no accessory muscle use. HEART: Regular rate and rhythm, S1, S2 without murmur, rub or gallop. ABDOMEN: Soft, nontender, nondistended, normoactive bowel sounds, no guarding. EXTREMITIES: 2+ pulses, warm, well-perfused. Trace swelling to R ankle and foot. NEUROLOGICAL: Cranial nerves II through XII grossly intact. Normal speech, gait steady. PSYCH: Normal mood, normal affect. SKIN: Warm, dry, normal turgor, no rashes or lesions noted Laboratory Results - last 24 hr 3 06/14/17 06/15/17 06/15/17 20:00 06:05 06:05 WBC 17.3 H RBC 5.39 Hgb 13.6 Hct 42.0 MCV 77.9 L MCH 25.3 L MCHC 32.5 RDW 15.9 Plt Count 345 MPV 8.1 Neutrophils % 69.0 D Lymphocytes % 22.0 D Monocytes % 3.0 L Eosinophils % 3.0 D Basophils % 1.0 D Metamyelocytes 1 D Myelocytes 1 Differential Comment Manual diff done Platelet Estimate Adequate PTT (Actin FS) 75.4 H Sodium 139 Potassium 4.1 D Chloride 105 Carbon Dioxide 26 Anion Gap 8 BUN 20 H Creatinine 1.2 Random Glucose 95 D Calcium 9.1 3 06/15/17 06/15/17 06:05 10:04 WBC RBC Hgb Hct MCV MCH MCHC RDW Plt Count MPV Neutrophils % Lymphocytes % Monocytes % Eosinophils % Basophils % Metamyelocytes Myelocytes Differential Comment Platelet Estimate PTT (Actin FS) 86.7 H 65.7 H Sodium Potassium Chloride Carbon Dioxide Anion Gap BUN Creatinine Random Glucose Calcium Active Medications 3 Generic Name Dose Route Start Last Admin Trade Name Freq PRN Reason Stop Dose Admin Acetaminophen 325 mg 06/13/17 20:26 06/15/17 05:25 Tylenol - PO 325 mg Q6H PRN Administration PAIN LEVEL 6-10 Heparin Sodium (Porcine) 1,000 unit 06/08/17 19:00 06/14/17 04:05 Heparin - IVPUSH 1,000 unit PRN PRN Administration Heparin Heparin Sodium (Porcine) 5,000 unit 06/08/17 19:00 06/09/17 03:38 Heparin - IVPUSH 5,000 unit PRN PRN Administration Heparin Hydromorphone HCl 1 mg 06/13/17 19:40 Dilaudid Injection - IVPUSH 06/16/17 19:41 [id number] PRN PAIN Heparin Sodium/Dextrose 500 mls @ 20 mls/hr 06/12/17 15:00 06/15/17 09:12 Heparin Infusion - IVPB 1,650 units/hr TITR SILVANA Titration Protocol 1,000 UNITS/HR Piperacillin Sod/Tazobactam 50 mls @ 100 mls/hr 06/14/17 02:00 06/15/17 10:51 Sod 3.375 gm/ Dextrose IVPB 100 mls/hr Q8H-IV SILVANA Administration Protocol Morphine Sulfate 2 mg 06/12/17 14:47 06/12/17 15:19 Morphine Injection - IVPUSH 2 mg Q6H PRN Administration PAIN Ondansetron HCl 4 mg 06/13/17 20:26 Zofran Injection IVPB Q6H PRN NAUSEA Oxycodone HCl 5 mg 06/13/17 20:26 06/15/17 05:24 Roxicodone - PO 5 mg Q6H PRN Administration PAIN LEVEL 6-10 Ramipril 5 mg 06/14/17 10:00 06/15/17 10:54 Altace - PO Not Given DAILY SILVANA ASSESSMENT/PLAN: A: 51yo man with PMH PCV with pyuria and leukocytosis 2/2 obstructive uropathy. Stent placed 06/13- continues to have hematuria. Pt educated to effects of heparin. Pt with superficial thrombi in b/l distal right lesser saphenous vein and proximal and mid left lesser saphenous veins on heparin gtt s/p IVC filter. P: 1. Right hydronephrosis 2/2 obstructive uropathy - percutaneous urostomy drain removed 06/13 - stent placed 06/13 - Zosyn 3.375g q8h (Day 6) - hematuria with clots present in urinal post stenting 2. UTI - Zosyn 3.375g - urine cx- No growth obtained - ID Bobde following 3. thrombi in b/l lesser saphenous veins - heparin gtt- maintain increased goal - titrate per protocol - transition to NOAC once stent is stable - IVC filter - VQ scan (-) PE 4. h/o Polycythemia vera - no evidence of acute active disease - trend CBC - platelets uptrending- will monitor 5. gout vs. pseudogout - pain resolved - less likely gout given uric acid- 6.4 - colchicine 0.6 prn 6. Mobitz Type I heart block - Per cardiology, tele showed episode of mobitz I second degree avb during sleep- - Likely due to increased vagal tone during sleep and possibly BAL - Outpatient workup for possible BAL 7. MENDOZA - resolved - likely from obstructive uropathy - trend BMP - hold ACEi 8. Bandemia - resolved - ? atypical MPN 9. Leukocytosis - downtrending - trend CBC - ID Bobde following 10. F/E/N - Renal diet - replete prn 11. PPX - heparin gtt Dispo- requires continued inpatient treatment of his acute medical conditions Visit type - Emergency Visit Emergency Visit: Yes ED Registration Date: 06/06/17 Care time: The patient presented to the Emergency Department on the above date and was hospitalized for further evaluation of their emergent condition. - New Patient This patient is new to me today: No - Critical Care Critical Care patient: No
[2017-06-15] MEDS ORDERED: COLCHICINE 0.6 MG TABLET (FP) PO PRN (11:32)
--- NOTE | 2017-06-15 12:58 | PATH ---
Surgical Pathology Report Patient Name: ELVIA VALENCIA Med. Rec. 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 Electronically Signed Rasheed Jackson M.D. Gross Description Received fresh labeled "old percutaneous nephrostomy tube," are 2 blue portions of tubing measuring 12.5 and 30.0 cm in length. No soft tissue is present. No sections are submitted, gross only. /06/14/2017 saudi06/14/2017
--- NOTE | 2017-06-15 12:59 | PN ---
Progress Note (short form) - Note Progress Note: PULMONARY VSS/AFEBRILE ANICTERIC CLEAR S1S2 BS+ LESS EDEMA LABS/MEDS/NOTES/IMAGES REVIEWED IMP BILATERAL DVT MENDOZA IMPROVING OBSTRUCTIVE UROPATHY S/P NEPHROSTOMY ERYTHROCYTOSIS R/O BAL PT GIVES H/O SNORING PLAN ANTICOAGULATION SLEEP STUDIES OUTPATIENT UROLOGICAL FOLLOW UP Leanna HAQUE MD
--- NOTE | 2017-06-15 15:06 | PN ---
Progress Note, Physician History of Present Illness: patient clinically stable wbc has increased again also patient says he passed clots in the urine - Current Medication List Current Medications: Active Medications Acetaminophen (Tylenol -) 325 mg PO Q6H PRN PRN Reason: PAIN LEVEL 6-10 Last Admin: 06/15/17 05:25 Dose: 325 mg Colchicine (Colcrys -) 0.6 mg PO DAILY PRN PRN Reason: PAIN Heparin Sodium (Porcine) (Heparin -) 1,000 unit IVPUSH PRN PRN PRN Reason: Heparin Last Admin: 06/14/17 04:05 Dose: 1,000 unit Heparin Sodium (Porcine) (Heparin -) 5,000 unit IVPUSH PRN PRN PRN Reason: Heparin Last Admin: 06/09/17 03:38 Dose: 5,000 unit Hydromorphone HCl (Dilaudid Injection -) 1 mg IVPUSH [id number] PRN PRN Reason: PAIN Stop: 06/16/17 19:41 Heparin Sodium/Dextrose (Heparin Infusion -) 500 mls @ 20 mls/hr IVPB TITR SILVANA ; 1,000 UNITS/HR PRN Reason: Protocol Last Admin: 06/15/17 14:43 Dose: 33 mls/hr Piperacillin Sod/Tazobactam (Sod 3.375 gm/ Dextrose) 50 mls @ 100 mls/hr IVPB Q8H-IV SILVANA PRN Reason: Protocol Last Admin: 06/15/17 10:51 Dose: 100 mls/hr Ondansetron HCl (Zofran Injection) 4 mg IVPB Q6H PRN PRN Reason: NAUSEA Oxycodone HCl (Roxicodone -) 5 mg PO Q6H PRN PRN Reason: PAIN LEVEL 6-10 Last Admin: 06/15/17 05:24 Dose: 5 mg Ramipril (Altace -) 5 mg PO DAILY SILVANA Last Admin: 06/15/17 10:54 Dose: Not Given - Objective Vital Signs: Vital Signs Temperature 98.0 F 06/15/17 09:00 Pulse Rate 68 06/15/17 09:00 Respiratory Rate 20 06/15/17 09:00 Blood Pressure 134/79 06/15/17 09:00 O2 Sat by Pulse Oximetry (%) 96 06/15/17 09:00 Constitutional: Yes: No Distress, Calm Cardiovascular: Yes: S1, S2 Respiratory: Yes: Regular, CTA Bilaterally Gastrointestinal: Yes: Normal Bowel Sounds, Soft Musculoskeletal: Yes: WNL Extremities: Yes: WNL Neurological: Yes: Alert, Oriented Psychiatric: Yes: Alert, Oriented Labs: CBC, BMP 06/15/17 06:05 06/15/17 06:05 INR, PTT INR 1.17 (0.82-1.09) H 06/13/17 05:35 Assessment/Plan Problem List - Problems (1) Acute kidney injury Code(s): N17.9 - ACUTE KIDNEY FAILURE, UNSPECIFIED (2) Creatinine elevation Code(s): R79.89 - OTHER SPECIFIED ABNORMAL FINDINGS OF BLOOD CHEMISTRY (3) Hyperkalemia Code(s): E87.5 - HYPERKALEMIA (4) Kidney stones Code(s): N20.0 - CALCULUS OF KIDNEY (5) Obstruction of kidney Code(s): N28.89 - OTHER SPECIFIED DISORDERS OF KIDNEY AND URETER (6) Polycythemia Code(s): D75.1 - SECONDARY POLYCYTHEMIA (7) Dvt femoral (deep venous thrombosis) Code(s): I82.419 - ACUTE EMBOLISM AND THROMBOSIS OF UNSPECIFIED FEMORAL VEIN 8 leukocytosis patient with ext nephrostomy tube removal and internal stent placement now passing clots with increasing wbc plan close watch on wbc continue current abx if wbc increases will consider changing abx also will need work up if wbc not going down
[2017-06-16] MEDS ORDERED: DEXTROSE 5%-WATER - 50 ML IVPB ONE ×2 (01:03→09:59)
[2017-06-16] MEDS ORDERED: PIPERACILLIN/TAZOBACTAM 3.375 GM VIAL IVPB ONE ×2 (01:03→09:58)
[2017-06-16] MEDS: PIPERACILLIN/TAZOB 3.375 GM 3.375 GM in DEXTROSE 5%-WATER - 50 ML IVPB SCH ×3 (01:09→17:51)
[2017-06-16] MEDS: HEPARIN INFUSION - 500 ML IVPB SCH ×3 (05:10→21:26)
[2017-06-16 07:30] LABS: MCH 25.2 pg (25.7-33.7); MCHC 32.3 g/dl (32.0-35.9); MEAN CELL VOLUME 78.1 fl (80-96); MEAN PLT VOLUME 7.8 fl (7.5-11.1); PLATELET COUNT 354 K/MM3 (134-434); RDW 15.8 % (11.9-15.9); WHITE BLOOD COUNT 14.5 K/mm3 (4.0-10.0)
[2017-06-16 07:56] LABS: ANION GAP 8 (8-16); CALCIUM 9.2 mg/dL (8.5-10.1); CO2 28 mmol/L (21-32); CREATININE 1.3 mg/dL (0.7-1.3); GLUCOSE,RANDOM 88 mg/dL (74-106)
--- NOTE | 2017-06-16 09:34 | PN ---
Progress Note (short form) - Note Progress Note: RENAL Pt awake and alert had cystoscopy and no longer has nephrostomy tube pain has disappeared hematuria improved Last Vital Signs Temp Pulse Resp BP Pulse Ox 98.8 F 80 20 132/74 96 06/16/17 09:14 06/16/17 09:14 06/16/17 09:14 06/16/17 09:14 06/15/17 09:00 lungs clear cvs s1s2 rr abd soft ext pedal edema, has good pulses bilat, less erythema neuro a+ox3 Current Medications Generic Name Dose Route Start Last Admin Trade Name Freq PRN Reason Stop Dose Admin Acetaminophen 325 mg 06/13/17 20:26 06/15/17 05:25 Tylenol - PO 325 mg Q6H PRN Administration PAIN LEVEL 6-10 Colchicine 0.6 mg 06/15/17 11:32 Colcrys - PO DAILY PRN PAIN Hydromorphone HCl 1 mg 06/13/17 19:40 Dilaudid Injection - IVPUSH 06/16/17 19:41 [id number] PRN PAIN Heparin Sodium/Dextrose 500 mls @ 20 mls/hr 06/12/17 15:00 06/16/17 09:11 Heparin Infusion - IVPB 32 mls/hr TITR SILVANA Administration Protocol 1,000 UNITS/HR Piperacillin Sod/Tazobactam 50 mls @ 100 mls/hr 06/14/17 02:00 06/16/17 01:09 Sod 3.375 gm/ Dextrose IVPB 100 mls/hr Q8H-IV SILVANA Administration Protocol Ondansetron HCl 4 mg 06/13/17 20:26 Zofran Injection IVPB Q6H PRN NAUSEA Oxycodone HCl 5 mg 06/13/17 20:26 06/15/17 05:24 Roxicodone - PO 5 mg Q6H PRN Administration PAIN LEVEL 6-10 CBC, BMP 06/16/17 05:20 06/16/17 05:20 Impression 1. 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 obstructive uropathy 3. CKD 4. nephrolithiasis 5. polycythemia- 6. hyperkalemia- may have been worsened by ramipril which was used for polycythemia. Now it could be due to heparin 7 likely has ckd from nephrolithiasis 8. s/p fever with leukocytosis- bandemia 9. probable gout despite normal uric acid level- there is also an association with polycythemia due to high turnover Plan dc colchicine. keep off nsaids monitor renal function restart fluids given slow rise in creatinine MV
[2017-06-16 09:45] LABS: PLATELET ESTIMATE ADEQUATE (NORMAL)
--- NOTE | 2017-06-16 10:55 | PN ---
Progress Note (short form) - Note Progress Note: Resting in NAD. No CP or SOB. No acute events overnight. Intake & Output 06/13/17 06/14/17 06/15/17 06/16/17 23:59 23:59 23:59 23:59 Intake Total 3126 2139 1628 1096 Output Total 3725 6100 7000 800 [facility]599 -[phone] -[phone] Last Vital Signs Temp Pulse Resp BP Pulse Ox 98.8 F 80 20 132/74 96 06/16/17 09:14 06/16/17 09:14 06/16/17 09:14 06/16/17 09:14 06/15/17 09:00 Active Medications Acetaminophen (Tylenol -) 325 mg PO Q6H PRN PRN Reason: PAIN LEVEL 6-10 Last Admin: 06/15/17 05:25 Dose: 325 mg Hydromorphone HCl (Dilaudid Injection -) 1 mg IVPUSH [id number] PRN PRN Reason: PAIN Stop: 06/16/17 19:41 Heparin Sodium/Dextrose (Heparin Infusion -) 500 mls @ 20 mls/hr IVPB TITR SILVANA ; 1,000 UNITS/HR PRN Reason: Protocol Last Admin: 06/16/17 09:11 Dose: 32 mls/hr Piperacillin Sod/Tazobactam (Sod 3.375 gm/ Dextrose) 50 mls @ 100 mls/hr IVPB Q8H-IV SILVANA PRN Reason: Protocol Last Admin: 06/16/17 10:02 Dose: 100 mls/hr Sodium Chloride (1/2 Normal Saline) 1,000 mls @ 75 mls/hr IV ASDIR SILVANA Ondansetron HCl (Zofran Injection) 4 mg IVPB Q6H PRN PRN Reason: NAUSEA Oxycodone HCl (Roxicodone -) 5 mg PO Q6H PRN PRN Reason: PAIN LEVEL 6-10 Last Admin: 06/15/17 05:24 Dose: 5 mg Constitutional: Yes: NAD Eyes: Yes: WNL HENT: Yes: WNL Neck: Yes: WNL Cardiovascular: Yes: Regular Rate and Rhythm, S1, S2 Respiratory: Yes: CTA Bilaterally Gastrointestinal: Yes: Normal Bowel Sounds, Soft Extremities: Yes: LE edema Labs: Laboratory Results - last 24 hr 06/16/17 06/16/1706/16/17 05:20 05:20 05:20 WBC 14.5 H RBC 5.50 Hgb 13.9 Hct 43.0 MCV 78.1 L MCH 25.2 L MCHC 32.3 RDW 15.8 Plt Count 354 MPV 7.8 Neutrophils % 67.0 Lymphocytes % 21.0 Monocytes % 6.0 D Eosinophils % 5.0 H Basophils % 1.0 Differential Comment Slide scanned Platelet Estimate Adequate PTT (Actin FS) 85.0 H Sodium 139 Potassium 4.3 Chloride 103 Carbon Dioxide 28 Anion Gap 8 BUN 20 H Creatinine 1.3 Random Glucose 88 Calcium 9.2 Stool Occult Blood 06/16/17 08:00 WBC RBC Hgb Hct MCV MCH MCHC RDW Plt Count MPV Neutrophils % Lymphocytes % Monocytes % Eosinophils % Basophils % Differential Comment Platelet Estimate PTT (Actin FS) Sodium Potassium Chloride Carbon Dioxide Anion Gap BUN Creatinine Random Glucose Calcium Stool Occult Blood Negative Problem List - Problems (1) Acute kidney injury Code(s): N17.9 - ACUTE KIDNEY FAILURE, UNSPECIFIED (2) Creatinine elevation Code(s): R79.89 - OTHER SPECIFIED ABNORMAL FINDINGS OF BLOOD CHEMISTRY (3) Hyperkalemia Code(s): E87.5 - HYPERKALEMIA (4) Kidney stones Code(s): N20.0 - CALCULUS OF KIDNEY (5) Obstruction of kidney Code(s): N28.89 - OTHER SPECIFIED DISORDERS OF KIDNEY AND URETER (6) Polycythemia Code(s): D75.1 - SECONDARY POLYCYTHEMIA (7) Dvt femoral (deep venous thrombosis) Code(s): I82.419 - ACUTE EMBOLISM AND THROMBOSIS OF UNSPECIFIED FEMORAL VEIN Assessment/Plan IMP BILATERAL DVT OBSTRUCTIVE UROPATHY S/P NEPHROSTOMY ERYTHROCYTOSIS R/O BAL PT GIVES H/O SNORING PLAN IV HEPARIN -> ORAL NPSG OUTPATIENT O2 NEEDED IVF Dr Love
[2017-06-16] MEDS: SODIUM CHLORIDE 0.45% 1,000 ML IV SCH (11:20)
--- NOTE | 2017-06-16 13:23 | PN ---
Physical Exam: SUBJECTIVE: Patient seen and examined. He say she is no longer passing clots. Urine at bedside shows hematuria, clear. OBJECTIVE: Vital Signs Period Temp Pulse Resp BP Sys/Aguirre Pulse Ox Last 24 Hr 97.8 F-98.8 F 78-80 20-20 132-151/72-83 96 PE Neuro: alert, awake, cn 2-12intact Pulm: CTAB CV: s1 s2 rrr no mrg Abd: s nd nd + bs : hematuria Ext: trace le edema, no pedal edema, erythema resolved, no tenderness Laboratory Results - last 24 hr 06/16/17 06/16/17 06/16/17 05:20 05:20 05:20 WBC 14.5 H RBC 5.50 Hgb 13.9 Hct 43.0 MCV 78.1 L MCH 25.2 L MCHC 32.3 RDW 15.8 Plt Count 354 MPV 7.8 Neutrophils % 67.0 Lymphocytes % 21.0 Monocytes % 6.0 D Eosinophils % 5.0 H Basophils % 1.0 Differential Comment Slide scanned Platelet Estimate Adequate PTT (Actin FS) 85.0 H Sodium 139 Potassium 4.3 Chloride 103 Carbon Dioxide 28 Anion Gap 8 BUN 20 H Creatinine 1.3 Random Glucose 88 Calcium 9.2 Stool Occult Blood Active Medications Generic Name Dose Route Start Last Admin Trade Name Bronwyn PRN Reason Stop Dose Admin Acetaminophen 325 mg 06/13/17 20:26 06/15/17 05:25 Tylenol - PO 325 mg Q6H PRN Administration PAIN LEVEL 6-10 Hydromorphone HCl 1 mg 06/13/17 19:40 Dilaudid Injection - IVPUSH 06/16/17 19:41 [id number] PRN PAIN Heparin Sodium/Dextrose 500 mls @ 20 mls/hr 06/12/17 15:00 06/16/17 09:11 Heparin Infusion - IVPB 32 mls/hr TITR SILVANA Administration Protocol 1,000 UNITS/HR Piperacillin Sod/Tazobactam 50 mls @ 100 mls/hr 06/14/17 02:00 06/16/17 10:02 Sod 3.375 gm/ Dextrose IVPB 100 mls/hr Q8H-IV SILVANA Administration Protocol Sodium Chloride 1,000 mls @ 75 mls/hr 06/16/17 09:45 06/16/17 11:20 1/2 Normal Saline IV 75 mls/hr ASDIR SILVANA Administration Ondansetron HCl 4 mg 06/13/17 20:26 Zofran Injection IVPB Q6H PRN NAUSEA Oxycodone HCl 5 mg 06/13/17 20:26 06/15/17 05:24 Roxicodone - PO 5 mg Q6H PRN Administration PAIN LEVEL 6-10 Assessment: 51 year male with a PMH of newly diagnosis erythrocytosis and nephrolithiasis, sent to ED by his urologist for right obstructing ureteral stone and for a left renal staghorn calculus. Plan: 1. Right hydronephrosis 2/2 obstructive uropathy - Stent placed 06/13, nephrostomy removed - Zosyn (Day 3) 2. UTI - Leukocytosis down trending - No fever, urine cx negative x2 3. Bilateral DVT - s/p IVC filter 06/11 - Heparin gtt - Transition to Eliquis per urology clearance 4. MENDOZA - Cr rising - Start 11/27 ns 75cc/hr 5. Erythrocytosis - Recent bone marrow bx non diagnostic, possible cause BAL causing reactive PV - Suspicion for atypical MPN 6. gout vs. pseudogout - Possibly also due to PCV - Stop colchicine - Avoid nephrotoxic agents 7. Mobitz Type I heart block - Per cardiology, tele showed episode of mobitz I second degree avb during sleep- - Likely due to increased vagal tone during sleep and BAL - Outpatient workup for severe BAL Visit type - Emergency Visit Emergency Visit: Yes ED Registration Date: 06/06/17 Care time: The patient presented to the Emergency Department on the above date and was hospitalized for further evaluation of their emergent condition. - New Patient This patient is new to me today: No - Critical Care Critical Care patient: No
--- NOTE | 2017-06-16 13:40 | PN ---
Progress Note, Physician History of Present Illness: Pt states he feels better. Denies having suprapubic or flank pain. Urine clear today. Denies fever or chills. - Current Medication List Current Medications: Active Medications Acetaminophen (Tylenol -) 325 mg PO Q6H PRN PRN Reason: PAIN LEVEL 6-10 Last Admin: 06/15/17 05:25 Dose: 325 mg Hydromorphone HCl (Dilaudid Injection -) 1 mg IVPUSH [id number] PRN PRN Reason: PAIN Stop: 06/16/17 19:41 Heparin Sodium/Dextrose (Heparin Infusion -) 500 mls @ 20 mls/hr IVPB TITR SILVANA ; 1,000 UNITS/HR PRN Reason: Protocol Last Admin: 06/16/17 09:11 Dose: 32 mls/hr Piperacillin Sod/Tazobactam (Sod 3.375 gm/ Dextrose) 50 mls @ 100 mls/hr IVPB Q8H-IV SILVANA PRN Reason: Protocol Last Admin: 06/16/17 10:02 Dose: 100 mls/hr Sodium Chloride (1/2 Normal Saline) 1,000 mls @ 75 mls/hr IV ASDIR SILVANA Last Admin: 06/16/17 11:20 Dose: 75 mls/hr Ondansetron HCl (Zofran Injection) 4 mg IVPB Q6H PRN PRN Reason: NAUSEA Oxycodone HCl (Roxicodone -) 5 mg PO Q6H PRN PRN Reason: PAIN LEVEL 6-10 Last Admin: 06/15/17 05:24 Dose: 5 mg - Objective Vital Signs: Vital Signs Temperature 98.8 F 06/16/17 09:14 Pulse Rate 80 06/16/17 09:14 Respiratory Rate 20 06/16/17 09:14 Blood Pressure 132/74 06/16/17 09:14 O2 Sat by Pulse Oximetry (%) 96 06/16/17 09:00 Constitutional: Yes: No Distress Eyes: Yes: WNL HENT: Yes: WNL Neck: Yes: WNL Cardiovascular: Yes: Regular Rate and Rhythm Respiratory: Yes: CTA Bilaterally Gastrointestinal: Yes: Normal Bowel Sounds, Soft Genitourinary: Yes: WNL Labs: CBC, BMP 06/16/17 05:20 06/16/17 05:20 INR, PTT INR 1.17 (0.82-1.09) H 06/13/17 05:35 Assessment/Plan Leukocytosis Nephrolithiasis s/p stent - wbc decreased, monitor trend - continue Zosyn for now - pt currently stable
[2017-06-16] MEDS ORDERED: PT OWN MED DRAWER 7, Y5N ONE (16:52)
[2017-06-17] MEDS ORDERED: PIPERACILLIN/TAZOBACTAM 3.375 GM VIAL IVPB ONE ×3 (02:08→17:51)
[2017-06-17] MEDS ORDERED: DEXTROSE 5%-WATER - 50 ML IVPB ONE ×3 (02:09→17:51)
[2017-06-17] MEDS: SODIUM CHLORIDE 0.45% 1,000 ML IV SCH ×2 (02:14→16:00)
[2017-06-17] MEDS: PIPERACILLIN/TAZOB 3.375 GM 3.375 GM in DEXTROSE 5%-WATER - 50 ML IVPB SCH ×3 (02:15→18:07)
--- NOTE | 2017-06-17 07:20 | HOSP ---
Subjective - Review of Symptoms Events since last encounter: Hospitalist Encounter Notified by RN that the patient had hematuria this am. Patient is on a Heparin Drip for DVT. Arrived to bedside, patient is alert, awake and oriented, he has no complaints. No urine at bedside to check for hematuria, will continue the Heparin Drip and closely monitor Will inform Day Team in am of this morning's events Physical Examination Vital Signs: Vital Signs Temperature 97.9 F 06/17/17 05:02 Pulse Rate 80 06/17/17 05:02 Respiratory Rate 20 06/17/17 05:02 Blood Pressure 118/77 06/17/17 05:02 O2 Sat by Pulse Oximetry (%) 96 06/16/17 21:00 Labs: CBC, BMP 06/16/17 05:20 06/16/17 05:20
[2017-06-17 07:47] LABS: MCH 25.3 pg (25.7-33.7); MCHC 32.3 g/dl (32.0-35.9); MEAN CELL VOLUME 78.2 fl (80-96); MEAN PLT VOLUME 7.9 fl (7.5-11.1); PLATELET COUNT 358 K/MM3 (134-434); RDW 15.8 % (11.9-15.9); WHITE BLOOD COUNT 16.6 K/mm3 (4.0-10.0)
[2017-06-17 08:25] LABS: ANION GAP 9 (8-16); CALCIUM 9.8 mg/dL (8.5-10.1); CO2 25 mmol/L (21-32); CREATININE 1.2 mg/dL (0.7-1.3); GLUCOSE,RANDOM 87 mg/dL (74-106)
--- NOTE | 2017-06-17 09:44 | PN ---
Progress Note (short form) - Note Progress Note: RENAL Pt awake and alert had cystoscopy and no longer has nephrostomy tube pain has disappeared hematuria returned last night He is concerned because of clot formation. Thinks his bone marrow is producing clots and he may have leukemia has no pain Last Vital Signs Temp Pulse Resp BP Pulse Ox 98.4 F 81 18 126/85 96 06/17/17 08:00 06/17/17 08:00 06/17/17 08:00 06/17/17 08:00 06/16/17 21:00 lungs clear cvs s1s2 rr abd soft ext pedal edema neuro a+ox3 urine bottle had a long clot in it Current Medications Generic Name Dose Route Start Last Admin Trade Name Freq PRN Reason Stop Dose Admin Acetaminophen 325 mg 06/13/17 20:26 06/15/17 05:25 Tylenol - PO 325 mg Q6H PRN Administration PAIN LEVEL 6-10 Heparin Sodium/Dextrose 500 mls @ 20 mls/hr 06/12/17 15:00 06/16/17 21:26 Heparin Infusion - IVPB 32 mls/hr TITR SILVANA Administration Protocol 1,000 UNITS/HR Piperacillin Sod/Tazobactam 50 mls @ 100 mls/hr 06/14/17 02:00 06/17/17 02:15 Sod 3.375 gm/ Dextrose IVPB 100 mls/hr Q8H-IV SILVANA Administration Protocol Sodium Chloride 1,000 mls @ 75 mls/hr 06/16/17 09:45 06/17/17 02:14 1/2 Normal Saline IV 75 mls/hr ASDIR SILVANA Administration Ondansetron HCl 4 mg 06/13/17 20:26 Zofran Injection IVPB Q6H PRN NAUSEA CBC, BMP 06/17/17 06:55 06/17/17 06:55 Impression 1. 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 obstructive uropathy 3. CKD 4. nephrolithiasis 5. polycythemia- 6. hyperkalemia- may have been worsened by ramipril which was used for polycythemia. Now it could be due to heparin 7 likely has ckd from nephrolithiasis 8. s/p fever with leukocytosis- bandemia 9. probable gout despite normal uric acid level- there is also an association with polycythemia due to high turnover Plan keep on fluids. Hopefully by maintaining higher urine flow he wont form clots keep off nsaids monitor renal function repeat cbc with [place] differential Heme and urology follow up MV
[2017-06-17 10:23] LABS: PLATELET ESTIMATE INCREASED (NORMAL)
--- NOTE | 2017-06-17 11:09 | PN ---
Physical Exam: SUBJECTIVE: Patient seen and examined. He is concerned about passing clots and worsening hematuria. Slight discomfort with micturation. OBJECTIVE: Vital Signs 3 Period Temp Pulse Resp BP Sys/Aguirre Pulse Ox Last 24 Hr 97.9 F-98.4 F 80-91 18-20 118-140/77-91 96 GENERAL: The patient is awake, alert, and fully oriented, in no acute distress. LUNGS: Breath sounds equal, clear to auscultation bilaterally, no wheezes or crackles. HEART: Regular rate and rhythm, S1, S2 without murmur. ABDOMEN: Soft, nontender, nondistended, normoactive bowel sounds, no guarding. EXTREMITIES: 2+ pulses, warm, well-perfused, no edema. NEUROLOGICAL: Cranial nerves II through XII grossly intact. Normal speech, gait steady. PSYCH: Normal mood, normal affect. Laboratory Results - last 24 hr 3 06/17/17 06/17/17 06/17/17 06:55 06:55 06:55 WBC 16.6 H RBC 5.64 H Hgb 14.3 Hct 44.1 MCV 78.2 L MCH 25.3 L MCHC 32.3 RDW 15.8 Plt Count 358 MPV 7.9 Neutrophils % 61.0 Lymphocytes % 18.0 Monocytes % 6.0 Eosinophils % 11.0 H D Band Neutrophils 2.0 D Myelocytes 2 D Platelet Estimate Increased Platelet Comment No clumping noted PTT (Actin FS) 71.5 H Sodium 137 Potassium 4.4 Chloride 103 Carbon Dioxide 25 Anion Gap 9 BUN 19 H Creatinine 1.2 Random Glucose 87 Calcium 9.8 Active Medications 3 Generic Name Dose Route Start Last Admin Trade Name Bronwyn PRN Reason Stop Dose Admin Acetaminophen 325 mg 06/13/17 20:26 06/15/17 05:25 Tylenol - PO 325 mg Q6H PRN Administration PAIN LEVEL 6-10 Heparin Sodium/Dextrose 500 mls @ 20 mls/hr 06/12/17 15:00 06/16/17 21:26 Heparin Infusion - IVPB 32 mls/hr TITR SILVANA Administration Protocol 1,000 UNITS/HR Piperacillin Sod/Tazobactam 50 mls @ 100 mls/hr 06/14/17 02:00 06/17/17 09:42 Sod 3.375 gm/ Dextrose IVPB 100 mls/hr Q8H-IV SILVANA Administration Protocol Sodium Chloride 1,000 mls @ 75 mls/hr 06/16/17 09:45 06/17/17 02:14 1/2 Normal Saline IV 75 mls/hr ASDIR SILVANA Administration Ondansetron HCl 4 mg 06/13/17 20:26 Zofran Injection IVPB Q6H PRN NAUSEA ASSESSMENT/PLAN: A: 51yo man with PMH PCV with pyuria and leukocytosis 2/2 obstructive uropathy. Stent placed 06/13- continues to have hematuria. Pt with superficial thrombi in b /l distal right lesser saphenous vein and proximal and mid left lesser saphenous veins on heparin gtt s/p IVC filter. P: 1. Right hydronephrosis 2/2 obstructive uropathy - percutaneous urostomy drain removed 06/13 - stent placed 06/13 - Zosyn 3.375g q8h (Day 6) - hematuria with clots present in urinal post stenting 2. UTI - Zosyn 3.375g - urine cx- No growth obtained - ID Bobde following 3. thrombi in b/l lesser saphenous veins - heparin gtt- maintain increased goal - titrate per protocol - transition to NOAC once hematuria improves - IVC filter - VQ scan (-) PE - continues to have hematuria with 1 large clot today 4. h/o Polycythemia vera - no evidence of acute active disease - trend CBC - platelets uptrending- will monitor 5. gout vs. pseudogout - pain resolved - less likely gout given uric acid- 6.4 - colchicine 0.6 prn 6. Mobitz Type I heart block - Per cardiology, tele showed episode of mobitz I second degree avb during sleep- - Likely due to increased vagal tone during sleep and possibly BAL - Outpatient workup for possible BAL 7. MENDOZA - resolved - likely from obstructive uropathy - trend BMP - hold ACEi 8. Bandemia - resolved - ? atypical MPN 9. Leukocytosis - increased today but overall downtrending - trend CBC - ID Bobde following 10. F/E/N - Renal diet - replete prn 11. PPX - heparin gtt Dispo- requires continued inpatient treatment of his acute medical conditions Visit type - Emergency Visit Emergency Visit: Yes ED Registration Date: 06/06/17 Care time: The patient presented to the Emergency Department on the above date and was hospitalized for further evaluation of their emergent condition. - New Patient This patient is new to me today: No - Critical Care Critical Care patient: No
--- NOTE | 2017-06-17 11:17 | PN ---
Progress Note (short form) - Note Progress Note: Still with hematuria/clots. No CP or SOB. No acute events overnight. Intake & Output 06/14/17 06/15/17 06/16/17 06/17/17 23:59 23:59 23:59 23:59 Intake Total 2139 1628 2930 1889.5 Output Total 6100 7000 3150 1400 Balance -3961 -5372 -220 489.5 Last Vital Signs Temp Pulse Resp BP Pulse Ox 98.4 F 81 18 126/85 96 06/17/17 08:00 06/17/17 08:00 06/17/17 08:00 06/17/17 08:00 06/16/17 21:00 Active Medications Acetaminophen (Tylenol -) 325 mg PO Q6H PRN PRN Reason: PAIN LEVEL 6-10 Last Admin: 06/15/17 05:25 Dose: 325 mg Heparin Sodium/Dextrose (Heparin Infusion -) 500 mls @ 20 mls/hr IVPB TITR SILVANA ; 1,000 UNITS/HR PRN Reason: Protocol Last Admin: 06/16/17 21:26 Dose: 32 mls/hr Piperacillin Sod/Tazobactam (Sod 3.375 gm/ Dextrose) 50 mls @ 100 mls/hr IVPB Q8H-IV SILVANA PRN Reason: Protocol Last Admin: 06/17/17 09:42 Dose: 100 mls/hr Sodium Chloride (1/2 Normal Saline) 1,000 mls @ 75 mls/hr IV ASDIR SILVANA Last Admin: 06/17/17 02:14 Dose: 75 mls/hr Ondansetron HCl (Zofran Injection) 4 mg IVPB Q6H PRN PRN Reason: NAUSEA Constitutional: Yes: NAD Eyes: Yes: WNL HENT: Yes: WNL Neck: Yes: WNL Cardiovascular: Yes: Regular Rate and Rhythm, S1, S2 Respiratory: Yes: CTA Bilaterally Gastrointestinal: Yes: Normal Bowel Sounds, Soft Extremities: Yes: LE edema Labs: Laboratory Results - last 24 hr 06/17/17 06/17/17 06/17/17 06:55 06:55 06:55 WBC 16.6 H RBC 5.64 H Hgb 14.3 Hct 44.1 MCV 78.2 L MCH 25.3 L MCHC 32.3 RDW 15.8 Plt Count 358 MPV 7.9 Neutrophils % 61.0 Lymphocytes % 18.0 Monocytes % 6.0 Eosinophils % 11.0 H D Band Neutrophils 2.0 D Myelocytes 2 D Platelet Estimate Increased Platelet Comment No clumping noted PTT (Actin FS) 71.5 H Sodium 137 Potassium 4.4 Chloride 103 Carbon Dioxide 25 Anion Gap 9 BUN 19 H Creatinine 1.2 Random Glucose 87 Calcium 9.8 Problem List - Problems (1) Acute kidney injury Code(s): N17.9 - ACUTE KIDNEY FAILURE, UNSPECIFIED (2) Creatinine elevation Code(s): R79.89 - OTHER SPECIFIED ABNORMAL FINDINGS OF BLOOD CHEMISTRY (3) Hyperkalemia Code(s): E87.5 - HYPERKALEMIA (4) Kidney stones Code(s): N20.0 - CALCULUS OF KIDNEY (5) Obstruction of kidney Code(s): N28.89 - OTHER SPECIFIED DISORDERS OF KIDNEY AND URETER (6) Polycythemia Code(s): D75.1 - SECONDARY POLYCYTHEMIA (7) Dvt femoral (deep venous thrombosis) Code(s): I82.419 - ACUTE EMBOLISM AND THROMBOSIS OF UNSPECIFIED FEMORAL VEIN Assessment/Plan IMP BILATERAL DVT OBSTRUCTIVE UROPATHY S/P NEPHROSTOMY ERYTHROCYTOSIS R/O BAL PT GIVES H/O SNORING PLAN IV HEPARIN -> ORAL NPSG OUTPATIENT O2 NEEDED IVF FOLLOW H7H ABX PER ID Dr Love
[2017-06-17] MEDS: HEPARIN INFUSION - 500 ML IVPB SCH ×2 (13:23→15:49)
--- NOTE | 2017-06-17 16:16 | PN ---
Progress Note, Physician History of Present Illness: Pt noted to have clots in urine again Otherwise denies any pain, fever, n/v/d - Current Medication List Current Medications: Active Medications Acetaminophen (Tylenol -) 325 mg PO Q6H PRN PRN Reason: PAIN LEVEL 6-10 Last Admin: 06/15/17 05:25 Dose: 325 mg Heparin Sodium/Dextrose (Heparin Infusion -) 500 mls @ 20 mls/hr IVPB TITR SILVANA ; 1,000 UNITS/HR PRN Reason: Protocol Last Admin: 06/17/17 15:49 Dose: Not Given Piperacillin Sod/Tazobactam (Sod 3.375 gm/ Dextrose) 50 mls @ 100 mls/hr IVPB Q8H-IV SILVANA PRN Reason: Protocol Last Admin: 06/17/17 09:42 Dose: 100 mls/hr Sodium Chloride (1/2 Normal Saline) 1,000 mls @ 75 mls/hr IV ASDIR SILVANA Last Admin: 06/17/17 16:00 Dose: 75 mls/hr Ondansetron HCl (Zofran Injection) 4 mg IVPB Q6H PRN PRN Reason: NAUSEA - Objective Vital Signs: Vital Signs Temperature 98.1 F 06/17/17 13:35 Pulse Rate 86 06/17/17 13:35 Respiratory Rate 18 06/17/17 08:00 Blood Pressure 115/81 06/17/17 13:35 O2 Sat by Pulse Oximetry (%) 97 06/17/17 09:00 Constitutional: Yes: No Distress Cardiovascular: Yes: Regular Rate and Rhythm Respiratory: Yes: WNL, Regular Gastrointestinal: Yes: Normal Bowel Sounds, Soft Genitourinary: Yes: Hematuria, Other (clots in urine, no abd/flank tenderness) Labs: CBC, BMP 06/17/17 06:55 06/17/17 06:55 INR, PTT INR 1.17 (0.82-1.09) H 06/13/17 05:35 Problem List - Problems (1) Dvt femoral (deep venous thrombosis) Code(s): I82.419 - ACUTE EMBOLISM AND THROMBOSIS OF UNSPECIFIED FEMORAL VEIN (2) Kidney stones Code(s): N20.0 - CALCULUS OF KIDNEY (3) Obstruction of kidney Code(s): N28.89 - OTHER SPECIFIED DISORDERS OF KIDNEY AND URETER (4) Polycythemia Code(s): D75.1 - SECONDARY POLYCYTHEMIA (5) Leukocytosis Code(s): D72.829 - ELEVATED WHITE BLOOD CELL COUNT, UNSPECIFIED Assessment/Plan Leukocytosis - wbc remains/elevated Recurrent Urinary clots Remains afebrile, without any complaints - continue Zosyn for now, pt without any signs of sepsis - heme/onc follow up continue monitor vitals for now
[2017-06-17] MEDS: ACETAMINOPHEN 325 MG TABLET (FP) PO PRN (22:16)
[2017-06-18] MEDS ORDERED: PIPERACILLIN/TAZOBACTAM 3.375 GM VIAL IVPB ONE ×3 (01:06→17:47)
[2017-06-18] MEDS ORDERED: DEXTROSE 5%-WATER - 50 ML IVPB ONE ×3 (01:07→17:47)
[2017-06-18] MEDS: PIPERACILLIN/TAZOB 3.375 GM 3.375 GM in DEXTROSE 5%-WATER - 50 ML IVPB SCH ×3 (01:12→18:01)
[2017-06-18] MEDS ORDERED: ACETAMINOPHEN 325 MG TABLET (FP) PO ONE (02:22)
[2017-06-18] MEDS: HEPARIN INFUSION - 500 ML IVPB SCH ×2 (05:13→09:26)
[2017-06-18 07:00] LABS: MCH 25.2 pg (25.7-33.7); MCHC 32.2 g/dl (32.0-35.9); MEAN CELL VOLUME 78.2 fl (80-96); MEAN PLT VOLUME 7.7 fl (7.5-11.1); PLATELET COUNT 378 K/MM3 (134-434); WHITE BLOOD COUNT 18.9 K/mm3 (4.0-10.0)
[2017-06-18] MEDS: SODIUM CHLORIDE 0.45% 1,000 ML IV SCH ×2 (07:02→18:01)
[2017-06-18 07:36] LABS: ANION GAP 5 (8-16); CALCIUM 9.5 mg/dL (8.5-10.1); CO2 31 mmol/L (21-32); CREATININE 1.2 mg/dL (0.7-1.3); GLUCOSE,RANDOM 96 mg/dL (74-106)
[2017-06-18 10:35] LABS: METAMYELOCYTE 1 % (0-2)
[2017-06-18 10:37] LABS: PLATELET ESTIMATE ADEQUATE (NORMAL)
--- NOTE | 2017-06-18 12:08 | PN ---
Physical Exam: SUBJECTIVE: Patient seen and examined. He reports feeling obstructed and cannot initiate urinating. It is painful, however intermitted, and he is making urine. Events: - Hematuria with clots this AM - WBC: 18.9 OBJECTIVE: Vital Signs Period Temp Pulse Resp BP Sys/Aguirre Pulse Ox Last 24 Hr 97.8 F-98.5 F 62-86 20-20 115-128/70-82 96 PE Neuro: alert, awake, cn 2-12intact Pulm: CTAB CV: s1 s2 rrr no mrg Abd: mild distension, s nd + bs : hematuria, clots +discomfort to palpation Ext: no le edema, no pedal edema, erythema resolved Laboratory Results - last 24 hr 06/18/17 06/18/17 06/18/17 06:23 06:30 06:30 WBC 18.9 H RBC 5.69 H Hgb 14.3 Hct 44.5 MCV 78.2 L MCH 25.2 L MCHC 32.2 RDW 16.0 H Plt Count 378 MPV 7.7 Neutrophils % 63.0 Lymphocytes % 24.0 D Monocytes % 7.0 Eosinophils % 2.0 D Basophils % 1.0 Band Neutrophils 1.0 D Metamyelocytes 1 Myelocytes 1 D Differential Comment Manual diff done Platelet Estimate Adequate PTT (Actin FS) Sodium 138 Potassium 4.4 Chloride 102 Carbon Dioxide 31 D Anion Gap 5 L BUN 17 Creatinine 1.2 Random Glucose 96 Calcium 9.5 Stool Occult Blood Negative Active Medications Generic Name Dose Route Start Last Admin Trade Name Freq PRN Reason Stop Dose Admin Acetaminophen 325 mg 06/13/17 20:26 06/17/17 22:16 Tylenol - PO 325 mg Q6H PRN Administration PAIN LEVEL 6-10 Heparin Sodium/Dextrose 500 mls @ 20 mls/hr 06/12/17 15:00 06/18/17 09:26 Heparin Infusion - IVPB 30 mls/hr TITR SILVANA Administration Protocol 1,000 UNITS/HR Piperacillin Sod/Tazobactam 50 mls @ 100 mls/hr 06/14/17 02:00 06/18/17 10:39 Sod 3.375 gm/ Dextrose IVPB 100 mls/hr Q8H-IV SILVANA Administration Protocol Sodium Chloride 1,000 mls @ 75 mls/hr 06/16/17 09:45 06/18/17 07:02 1/2 Normal Saline IV 75 mls/hr ASDIR SILVANA Administration Ondansetron HCl 4 mg 06/13/17 20:26 Zofran Injection IVPB Q6H PRN NAUSEA Assessment: 51 year male with a PMH of newly diagnosis erythrocytosis and nephrolithiasis, sent to ED by his urologist for right obstructing ureteral stone and for a left renal staghorn calculus. Plan: 1. Possible obstructed stent - Bladder scan with 400cc - Place arriola now 2. Right hydronephrosis 2/2 obstructive uropathy - Stent placed 06/13, nephrostomy removed - Dr. Nima hudson aware 3. UTI - Leukocytosis rising - Repeat UA today - Zosyn (Day 5) 4. Bilateral DVT - IVC filter 06/11 - Continue Heparin gtt - Eliquis when stable 5. MENDOZA - Cr stable - Maintain fluids 1/2 ns 75cc/hr - Renal following 6. Erythrocytosis - Recent bone marrow bx non diagnostic, possible cause BAL causing reactive PV - Suspicion for atypical MPN 7. gout vs. pseudogout - Possibly also due to PCV - LE Swelling improved; s/p 3 days colchicine 8. Mobitz Type I heart block - Per cardiology, tele showed episode of mobitz I second degree avb during sleep- - Likely due to increased vagal tone during sleep and BAL - Outpatient workup for severe BAL Visit type - Emergency Visit Emergency Visit: Yes ED Registration Date: 06/06/17 Care time: The patient presented to the Emergency Department on the above date and was hospitalized for further evaluation of their emergent condition. - New Patient This patient is new to me today: No - Critical Care Critical Care patient: No
[2017-06-18] MEDS ORDERED: ALPRAZolam 0.25 MG TABLET PO ONE ×2 (12:24→22:41)
--- NOTE | 2017-06-18 14:01 | PN ---
Progress Note, Physician History of Present Illness: Pt seen and examined at bedside. He complains of difficulty urinating. He also has bladder distention. - Current Medication List Current Medications: Active Medications Acetaminophen (Tylenol -) 325 mg PO Q6H PRN PRN Reason: PAIN LEVEL 6-10 Last Admin: 06/17/17 22:16 Dose: 325 mg Piperacillin Sod/Tazobactam (Sod 3.375 gm/ Dextrose) 50 mls @ 100 mls/hr IVPB Q8H-IV SILVANA PRN Reason: Protocol Last Admin: 06/18/17 10:39 Dose: 100 mls/hr Sodium Chloride (1/2 Normal Saline) 1,000 mls @ 75 mls/hr IV ASDIR SILVANA Last Admin: 06/18/17 07:02 Dose: 75 mls/hr Ondansetron HCl (Zofran Injection) 4 mg IVPB Q6H PRN PRN Reason: NAUSEA - Objective Vital Signs: Vital Signs Temperature 98.5 F 06/18/17 08:45 Pulse Rate 81 06/18/17 08:45 Respiratory Rate 20 06/18/17 08:45 Blood Pressure 128/79 06/18/17 08:45 O2 Sat by Pulse Oximetry (%) 96 06/18/17 09:00 Constitutional: Yes: Calm Eyes: Yes: Conjunctiva Clear HENT: Yes: Atraumatic Neck: Yes: Supple Cardiovascular: Yes: S1, S2 Respiratory: Yes: CTA Bilaterally Gastrointestinal: Yes: Soft Genitourinary: Yes: Bladder Distention, Hematuria Edema: No Neurological: Yes: Oriented Psychiatric: Yes: Oriented Labs: CBC, BMP 06/18/17 06:30 06/18/17 06:30 INR, PTT INR 1.17 (0.82-1.09) H 06/13/17 05:35 Problem List - Problems (1) Acute kidney injury Code(s): N17.9 - ACUTE KIDNEY FAILURE, UNSPECIFIED Assessment/Plan Current Medications Generic Name Dose Route Start Last Admin Trade Name Freq PRN Reason Stop Dose Admin Acetaminophen 325 mg 06/13/17 20:26 06/17/17 22:16 Tylenol - PO 325 mg Q6H PRN Administration PAIN LEVEL 6-10 Piperacillin Sod/Tazobactam 50 mls @ 100 mls/hr 06/14/17 02:00 06/18/17 10:39 Sod 3.375 gm/ Dextrose IVPB 100 mls/hr Q8H-IV SILVANA Administration Protocol Sodium Chloride 1,000 mls @ 75 mls/hr 06/16/17 09:45 06/18/17 07:02 1/2 Normal Saline IV 75 mls/hr ASDIR SILVANA Administration Ondansetron HCl 4 mg 06/13/17 20:26 Zofran Injection IVPB Q6H PRN NAUSEA Impression 1. MENDOZA resolving 2. obstructive uropathy 3. CKD 4. nephrolithiasis 5. polycythemia 6. hyperkalemia 7. DVT 8. UTI Plan - called and discussed case with urology, will have arriola plance - will also start flomax, as pt was also on it in the past - repeat labs in am - monitor urine output - discussed plan with pt - discussed with hospitalist Dr Hall
[2017-06-18] MEDS: TAMSULOSIN HCL 0.4 MG CAP.ER.24H (FP) PO SCH (14:37)
[2017-06-18 15:14] LABS: URINE APPEARANCE CLEAR; URINE BILIRUBIN NEGATIVE (NEGATIVE); URINE BLOOD 3+ (NEGATIVE); URINE COLOR RED; URINE GLUCOSE (UA) NEGATIVE (NEGATIVE); URINE KETONE NEGATIVE (NEGATIVE); URINE NITRITE NEGATIVE (NEGATIVE); URINE UROBILINOGEN NEGATIVE mg/dL (0.2-1.0)
[2017-06-18 15:15] LABS: URINE LEUK ESTERASE 1+ (NEGATIVE); URINE PROTEIN 2+ (NEGATIVE)
[2017-06-18 15:22] LABS: URINE RBC 1628 /hpf (0-3); URINE WBC 15 /hpf (3-5)
--- NOTE | 2017-06-18 15:48 | CONSULT ---
Consult - text type - Consultation Consultation Note: cc: acute urinary retention hpi: patient is s/p right ureteral stent placement. Patient was doing well then developed increased urinary frequency and urgency with stranguria. The patient was found on bladder scan to have a volume of >400 cc. A catheter was placed and the patient had immediate relief. PE afeb abd- soft/no CVAT labs reviewed elevated WBC creatinine 1.2 imp bph acute urinary retention dvt s/p ivc filter acute renal failure now recovered s/p nephrostomy tube s/p stent plan follow WBC and creatinine continue with flomax started today d/c arriola catheter after am dose of flomax on 06/19 discussed x 25 min with patient and
--- NOTE | 2017-06-18 18:04 | PN ---
Progress Note, Physician History of Present Illness: wbc continues to increases patient retaining urine still with hematuria - Current Medication List Current Medications: Active Medications Acetaminophen (Tylenol -) 325 mg PO Q6H PRN PRN Reason: PAIN LEVEL 6-10 Last Admin: 06/17/17 22:16 Dose: 325 mg Piperacillin Sod/Tazobactam (Sod 3.375 gm/ Dextrose) 50 mls @ 100 mls/hr IVPB Q8H-IV SILVANA PRN Reason: Protocol Last Admin: 06/18/17 10:39 Dose: 100 mls/hr Sodium Chloride (1/2 Normal Saline) 1,000 mls @ 75 mls/hr IV ASDIR SILVANA Last Admin: 06/18/17 07:02 Dose: 75 mls/hr Ondansetron HCl (Zofran Injection) 4 mg IVPB Q6H PRN PRN Reason: NAUSEA Tamsulosin HCl (Flomax -) 0.4 mg PO DAILY@0830 [facility] Last Admin: 06/18/17 14:37 Dose: 0.4 mg - Objective Vital Signs: Vital Signs Temperature 97.4 F L 06/18/17 14:04 Pulse Rate 71 06/18/17 14:04 Respiratory Rate 20 06/18/17 14:04 Blood Pressure 131/64 06/18/17 14:04 O2 Sat by Pulse Oximetry (%) 96 06/18/17 09:00 Constitutional: Yes: No Distress, Calm Cardiovascular: Yes: Regular Rate and Rhythm Respiratory: Yes: Regular, CTA Bilaterally Gastrointestinal: Yes: Normal Bowel Sounds, Soft Genitourinary: Yes: Bray Present Musculoskeletal: Yes: WNL Extremities: Yes: WNL Neurological: Yes: Alert, Oriented Psychiatric: Yes: Alert, Oriented Labs: CBC, BMP 06/18/17 06:30 06/18/17 06:30 INR, PTT INR 1.17 (0.82-1.09) H 06/13/17 05:35 Assessment/Plan Problem List - Problems (1) Acute kidney injury Code(s): N17.9 - ACUTE KIDNEY FAILURE, UNSPECIFIED (2) Creatinine elevation Code(s): R79.89 - OTHER SPECIFIED ABNORMAL FINDINGS OF BLOOD CHEMISTRY (3) Hyperkalemia Code(s): E87.5 - HYPERKALEMIA (4) Kidney stones Code(s): N20.0 - CALCULUS OF KIDNEY (5) Obstruction of kidney Code(s): N28.89 - OTHER SPECIFIED DISORDERS OF KIDNEY AND URETER (6) Polycythemia Code(s): D75.1 - SECONDARY POLYCYTHEMIA (7) Dvt femoral (deep venous thrombosis) Code(s): I82.419 - ACUTE EMBOLISM AND THROMBOSIS OF UNSPECIFIED FEMORAL VEIN 8 leukocytosis plan wbc has increased urinary retention foleys in place will see wbc tomorrow if the wbc increases then we will have to revisit the stent
--- NOTE | 2017-06-18 19:24 | PN ---
Progress Note (short form) - Note Progress Note: 1230 Reports hematuria had improved, now possib worse, "cranberry" color. Had difficulty voiding and arriola just placed w relief of bladder pressure. NOtes focal ankle pain resolved PE NAD lungs - CTA CVS-reg S1S2 abd- soft ext - no edema Imp: h/o pancytosis, reactive vs atyp MPN. DVT s/p IVCF, ongoing hep. s/p uret stenting w worsened hematuria. f/u duplex showed no DVT (superficial vein thrombosis noted). Would therefore hold a/c and monitor urine. h/h remains stable. urol f/u; CBI? above d/w w pt and who are in agreement w plan d/w hospitalist
[2017-06-18] MEDS: ACETAMINOPHEN 325 MG TABLET (FP) PO PRN (23:07)
[2017-06-18] MEDS: oxyCODONE HCL 5 MG TABLET PO PRN (23:07)
[2017-06-19] MEDS ORDERED: DEXTROSE 5%-WATER - 50 ML IVPB ONE ×3 (01:29→16:58)
[2017-06-19] MEDS ORDERED: PIPERACILLIN/TAZOBACTAM 3.375 GM VIAL IVPB ONE ×3 (01:29→16:58)
[2017-06-19] MEDS: PIPERACILLIN/TAZOB 3.375 GM 3.375 GM in DEXTROSE 5%-WATER - 50 ML IVPB SCH ×3 (01:32→17:16)
[2017-06-19] MEDS: SODIUM CHLORIDE 0.45% 1,000 ML IV SCH ×2 (06:32→22:00)
[2017-06-19 07:15] LABS: MCH 25.6 pg (25.7-33.7); MCHC 32.6 g/dl (32.0-35.9); MEAN CELL VOLUME 78.6 fl (80-96); MEAN PLT VOLUME 7.9 fl (7.5-11.1); PLATELET COUNT 342 K/MM3 (134-434); RDW 16.1 % (11.9-15.9)
[2017-06-19 07:21] LABS: ANION GAP 7 (8-16); CALCIUM 9.7 mg/dL (8.5-10.1); CO2 29 mmol/L (21-32); CREATININE 1.3 mg/dL (0.7-1.3); GLUCOSE,RANDOM 89 mg/dL (74-106)
[2017-06-19] MEDS: TAMSULOSIN HCL 0.4 MG CAP.ER.24H (FP) PO SCH (08:19)
[2017-06-19] MEDS: oxyCODONE HCL 5 MG TABLET PO PRN (09:07)
[2017-06-19] MEDS: ACETAMINOPHEN 325 MG TABLET (FP) PO PRN (09:08)
[2017-06-19 09:22] LABS: PLATELET ESTIMATE ADEQUATE (NORMAL)
--- NOTE | 2017-06-19 12:27 | PN ---
Physical Exam: SUBJECTIVE: Patient seen and examined. He said after arriola removed and initial free pee, he is feeling much better Events: - hematuria improved, clots present after arriola urination OBJECTIVE: Vital Signs Period Temp Pulse Resp BP Sys/Aguirre Pulse Ox Last 24 Hr 97.4 F-98.8 F 69-97 18-20 119-134/64-85 95 PE Neuro: alert, awake, cn 2-12intact Pulm: CTAB CV: s1 s2 rrr no mrg Abd: mild distension, s nd + bs : clots in urinal, urine dark yellow Ext: no le edema, no pedal edema CBCD WBC 17.0 K/mm3 (4.0-10.0) H 06/19/17 06:05 RBC 5.39 M/mm3 (4.00-5.60) 06/19/17 06:05 Hgb 13.8 GM/dL (11.7-16.9) 06/19/17 06:05 Hct 42.4 % (35.4-49) 06/19/17 06:05 MCV 78.6 fl (80-96) L 06/19/17 06:05 MCHC 32.6 g/dl (32.0-35.9) 06/19/17 06:05 RDW 16.1 % (11.9-15.9) H 06/19/17 06:05 Plt Count 342 K/MM3 (134-434) 06/19/17 06:05 MPV 7.9 fl (7.5-11.1) 06/19/17 06:05 CMP Sodium 139 mmol/L (136-145) 06/19/17 06:05 Potassium 4.5 mmol/L (3.5-5.1) 06/19/17 06:05 Chloride 103 mmol/L (98-107) 06/19/17 06:05 Carbon Dioxide 29 mmol/L (21-32) 06/19/17 06:05 Anion Gap 7 (8-16) L 06/19/17 06:05 BUN 20 mg/dL (7-18) H 06/19/17 06:05 Creatinine 1.3 mg/dL (0.7-1.3) 06/19/17 06:05 Creat Clearance w eGFR > 60 (>60) 06/12/17 05:55 Calcium 9.7 mg/dL (8.5-10.1) 06/19/17 06:05 Total Bilirubin 0.9 mg/dL (0.2-1.0) 06/12/17 05:55 AST 44 U/L (15-37) H D 06/12/17 05:55 ALT 79 U/L (12-78) H D 06/12/17 05:55 Alkaline Phosphatase 128 U/L (45-117) H D 06/12/17 05:55 Total Protein 6.3 g/dl (6.4-8.2) L 06/12/17 05:55 Albumin 2.9 g/dl (3.4-5.0) L 06/12/17 05:55 Active Medications Generic Name Dose Route Start Last Admin Trade Name Freq PRN Reason Stop Dose Admin Acetaminophen 325 mg 06/13/17 20:26 06/19/17 09:08 Tylenol - PO 325 mg Q6H PRN Administration PAIN LEVEL 6-10 Piperacillin Sod/Tazobactam 50 mls @ 100 mls/hr 06/14/17 02:00 06/19/17 09:01 Sod 3.375 gm/ Dextrose IVPB 100 mls/hr Q8H-IV SILVANA Administration Protocol Sodium Chloride 1,000 mls @ 75 mls/hr 06/16/17 09:45 06/19/17 06:32 1/2 Normal Saline IV 75 mls/hr ASDIR SILVANA Administration Ondansetron HCl 4 mg 06/13/17 20:26 Zofran Injection IVPB Q6H PRN NAUSEA Oxycodone HCl 5 mg 06/18/17 22:41 06/19/17 09:07 Roxicodone - PO 5 mg Q6H PRN Administration PAIN Tamsulosin HCl 0.4 mg 06/18/17 14:15 06/19/17 08:19 Flomax - PO 0.4 mg DAILY@0830 SILVANA Administration Assessment: 51 year male with a PMH of newly diagnosis erythrocytosis and nephrolithiasis, sent to ED by his urologist for right obstructing ureteral stone and for a left renal staghorn calculus. Plan: 1. Acute urinary retention - Arriola removed today - Continue flomax daily - Monitor urine outpt 2. Right hydronephrosis 2/2 obstructive uropathy - Stent placed 06/13, nephrostomy removed 3. UTI - Leukocytosis down today - UA improved - Zosyn (Day 6) 4. Bilateral DVT - IVC filter 06/11 - Discontinued heparin gtt 06/18 - Start eliquis 5mg BID, once urology stable 5. MENDOZA - Maintain fluids / ns 75cc/hr - Renal following 6. Erythrocytosis - Recent bone marrow bx non diagnostic, possible cause BAL causing reactive PV - Suspicion for atypical vs reactive MPN 7. gout vs. pseudogout - Possibly also due to PCV - LE Swelling improved; s/p 3 days colchicine 8. Mobitz Type I heart block - Per cardiology, tele showed episode of mobitz I second degree avb during sleep- - Likely due to increased vagal tone during sleep and BAL - Outpatient workup for severe BAL Visit type - Emergency Visit Emergency Visit: Yes ED Registration Date: 06/06/17 Care time: The patient presented to the Emergency Department on the above date and was hospitalized for further evaluation of their emergent condition. - New Patient This patient is new to me today: No - Critical Care Critical Care patient: No
--- NOTE | 2017-06-19 14:22 | PN ---
Progress Note, Physician History of Present Illness: Pt seen and examined at bedside. He is awake and alert. He did have the arriola placed yesterday and was started on flomax. Fley was removed today and he says he passed clots/stones that he has saved with him at the bedside. - Current Medication List Current Medications: Active Medications Acetaminophen (Tylenol -) 325 mg PO Q6H PRN PRN Reason: PAIN LEVEL 6-10 Last Admin: 06/19/17 09:08 Dose: 325 mg Piperacillin Sod/Tazobactam (Sod 3.375 gm/ Dextrose) 50 mls @ 100 mls/hr IVPB Q8H-IV SILVANA PRN Reason: Protocol Last Admin: 06/19/17 09:01 Dose: 100 mls/hr Sodium Chloride (1/2 Normal Saline) 1,000 mls @ 75 mls/hr IV ASDIR SILVANA Last Admin: 06/19/17 06:32 Dose: 75 mls/hr Ondansetron HCl (Zofran Injection) 4 mg IVPB Q6H PRN PRN Reason: NAUSEA Oxycodone HCl (Roxicodone -) 5 mg PO Q6H PRN PRN Reason: PAIN Last Admin: 06/19/17 09:07 Dose: 5 mg Tamsulosin HCl (Flomax -) 0.4 mg PO DAILY@0830 [facility] Last Admin: 06/19/17 08:19 Dose: 0.4 mg - Objective Vital Signs: Vital Signs Temperature 97.6 F 06/19/17 14:00 Pulse Rate 87 06/19/17 14:00 Respiratory Rate 20 06/19/17 14:00 Blood Pressure 140/81 06/19/17 14:00 O2 Sat by Pulse Oximetry (%) 95 06/18/17 21:00 Constitutional: Yes: Calm Eyes: Yes: Conjunctiva Clear HENT: Yes: Atraumatic Cardiovascular: Yes: S1, S2 Respiratory: Yes: CTA Bilaterally Gastrointestinal: Yes: Normal Bowel Sounds, Soft Genitourinary: Yes: WNL Musculoskeletal: Yes: WNL Edema: No Neurological: Yes: Oriented Psychiatric: Yes: Oriented Labs: CBC, BMP 06/19/17 06:05 06/19/17 06:05 INR, PTT INR 1.17 (0.82-1.09) H 06/13/17 05:35 Problem List - Problems (1) Acute kidney injury Code(s): N17.9 - ACUTE KIDNEY FAILURE, UNSPECIFIED Assessment/Plan Current Medications Generic Name Dose Route Start Last Admin Trade Name Bronwyn PRN Reason Stop Dose Admin Acetaminophen 325 mg 06/13/17 20:26 06/19/17 09:08 Tylenol - PO 325 mg Q6H PRN Administration PAIN LEVEL 6-10 Piperacillin Sod/Tazobactam 50 mls @ 100 mls/hr 06/14/17 02:00 06/19/17 09:01 Sod 3.375 gm/ Dextrose IVPB 100 mls/hr Q8H-IV SILVANA Administration Protocol Sodium Chloride 1,000 mls @ 75 mls/hr 06/16/17 09:45 06/19/17 06:32 1/2 Normal Saline IV 75 mls/hr ASDIR SILVANA Administration Ondansetron HCl 4 mg 06/13/17 20:26 Zofran Injection IVPB Q6H PRN NAUSEA Oxycodone HCl 5 mg 06/18/17 22:41 06/19/17 09:07 Roxicodone - PO 5 mg Q6H PRN Administration PAIN Tamsulosin HCl 0.4 mg 06/18/17 14:15 06/19/17 08:19 Flomax - PO 0.4 mg DAILY@0830 SILVANA Administration Impression 1. MENDOZA resolving 2. obstructive uropathy 3. CKD 4. nephrolithiasis 5. polycythemia 6. hyperkalemia 7. DVT 8. UTI Plan - cont flomax - send stone/clot for analysis with pathology - monitor renal function - will need outpt follow up - discussed with hospitalist Dr Hall
--- NOTE | 2017-06-19 15:06 | PN ---
Progress Note, Physician History of Present Illness: stable no new issues passed clots and seems stones - Current Medication List Current Medications: Active Medications Acetaminophen (Tylenol -) 325 mg PO Q6H PRN PRN Reason: PAIN LEVEL 6-10 Last Admin: 06/19/17 09:08 Dose: 325 mg Piperacillin Sod/Tazobactam (Sod 3.375 gm/ Dextrose) 50 mls @ 100 mls/hr IVPB Q8H-IV SILVANA PRN Reason: Protocol Last Admin: 06/19/17 09:01 Dose: 100 mls/hr Sodium Chloride (1/2 Normal Saline) 1,000 mls @ 75 mls/hr IV ASDIR SILVANA Last Admin: 06/19/17 06:32 Dose: 75 mls/hr Ondansetron HCl (Zofran Injection) 4 mg IVPB Q6H PRN PRN Reason: NAUSEA Oxycodone HCl (Roxicodone -) 5 mg PO Q6H PRN PRN Reason: PAIN Last Admin: 06/19/17 09:07 Dose: 5 mg Tamsulosin HCl (Flomax -) 0.4 mg PO DAILY@0830 [facility] Last Admin: 06/19/17 08:19 Dose: 0.4 mg - Objective Vital Signs: Vital Signs Temperature 97.6 F 06/19/17 14:00 Pulse Rate 87 06/19/17 14:00 Respiratory Rate 20 06/19/17 14:00 Blood Pressure 140/81 06/19/17 14:00 O2 Sat by Pulse Oximetry (%) 95 06/18/17 21:00 Constitutional: Yes: No Distress, Calm Cardiovascular: Yes: Regular Rate and Rhythm Respiratory: Yes: Regular, CTA Bilaterally Gastrointestinal: Yes: Normal Bowel Sounds, Soft Musculoskeletal: Yes: WNL Extremities: Yes: WNL Neurological: Yes: Alert, Oriented Psychiatric: Yes: Alert, Oriented Labs: CBC, BMP 06/19/17 06:05 06/19/17 06:05 INR, PTT INR 1.17 (0.82-1.09) H 06/13/17 05:35 Assessment/Plan Problem List - Problems (1) Acute kidney injury Code(s): N17.9 - ACUTE KIDNEY FAILURE, UNSPECIFIED (2) Creatinine elevation Code(s): R79.89 - OTHER SPECIFIED ABNORMAL FINDINGS OF BLOOD CHEMISTRY (3) Hyperkalemia Code(s): E87.5 - HYPERKALEMIA (4) Kidney stones Code(s): N20.0 - CALCULUS OF KIDNEY (5) Obstruction of kidney Code(s): N28.89 - OTHER SPECIFIED DISORDERS OF KIDNEY AND URETER (6) Polycythemia Code(s): D75.1 - SECONDARY POLYCYTHEMIA (7) Dvt femoral (deep venous thrombosis) Code(s): I82.419 - ACUTE EMBOLISM AND THROMBOSIS OF UNSPECIFIED FEMORAL VEIN 8 leukocytosis plan wbc down send the stone for pathology' continue to monitor very close watch on urine output rest as per primary
[2017-06-20] MEDS ORDERED: PIPERACILLIN/TAZOBACTAM 3.375 GM VIAL IVPB ONE ×3 (01:04→16:15)
[2017-06-20] MEDS ORDERED: DEXTROSE 5%-WATER - 50 ML IVPB ONE ×3 (01:04→16:15)
[2017-06-20] MEDS: PIPERACILLIN/TAZOB 3.375 GM 3.375 GM in DEXTROSE 5%-WATER - 50 ML IVPB SCH ×3 (01:35→17:10)
[2017-06-20 07:29] LABS: MCH 25.8 pg (25.7-33.7); MEAN CELL VOLUME 78.2 fl (80-96); PLATELET COUNT 326 K/MM3 (134-434); WHITE BLOOD COUNT 15.8 K/mm3 (4.0-10.0)
[2017-06-20 07:55] LABS: ALBUMIN 3.2 g/dl (3.4-5.0); ANION GAP 10 (8-16); CALCIUM 9.2 mg/dL (8.5-10.1); CO2 26 mmol/L (21-32); CREATININE 1.3 mg/dL (0.7-1.3); GLUCOSE,RANDOM 82 mg/dL (74-106); SGOT/AST 27 U/L (15-37); SGPT/ALT 72 U/L (12-78)
[2017-06-20 07:57] LABS: ALK PHOS 101 U/L (45-117); BILIRUBIN,TOTAL 0.5 mg/dL (0.2-1.0); TOT PROT 6.5 g/dl (6.4-8.2)
[2017-06-20] MEDS: TAMSULOSIN HCL 0.4 MG CAP.ER.24H (FP) PO SCH (08:26)
[2017-06-20 09:13] LABS: PLATELET ESTIMATE ADEQUATE (NORMAL)
--- NOTE | 2017-06-20 10:02 | PN ---
Physical Exam: SUBJECTIVE: Patient seen and examined. He is feeling back to himself again. He has not passed any clots or further stones. Denies fever, dysuria. At times has urgency. OBJECTIVE: Vital Signs Period Temp Pulse Resp BP Sys/Aguirre Pulse Ox Last 24 Hr 97.6 F-98.3 F 68-96 20-20 124-140/71-88 96 PE Neuro: alert, awake, cn 2-12intact Pulm: CTAB CV: s1 s2 rrr no mrg Abd: s nt nd +bs : yellow clear urine in urinal Ext: warm, no le edema, reports mild calf tightness- chronic Laboratory Results - last 24 hr 06/20/17 06/20/17 06:10 06:10 WBC 15.8 H RBC 5.36 Hgb 13.8 Hct 41.9 MCV 78.2 L MCH 25.8 MCHC 33.0 RDW 16.0 H Plt Count 326 MPV 8.0 Neutrophils % 67.0 Lymphocytes % 19.0 Monocytes % 5.0 Eosinophils % 5.0 H Basophils % 1.0 Myelocytes 3 H D Differential Comment Manual diff done Platelet Estimate Adequate Sodium 138 Potassium 4.6 Chloride 102 Carbon Dioxide 26 Anion Gap 10 BUN 22 H Creatinine 1.3 Creat Clearance w eGFR 57.97 Random Glucose 82 Calcium 9.2 Total Bilirubin 0.5 D AST 27 D ALT 72 Alkaline Phosphatase 101 D Total Protein 6.5 Albumin 3.2 L Active Medications Generic Name Dose Route Start Last Admin Trade Name Freq PRN Reason Stop Dose Admin Acetaminophen 325 mg 06/13/17 20:26 06/19/17 09:08 Tylenol - PO 325 mg Q6H PRN Administration PAIN LEVEL 6-10 Apixaban 5 mg 06/20/17 10:00 Eliquis - PO BID SILVANA Piperacillin Sod/Tazobactam 50 mls @ 100 mls/hr 06/14/17 02:00 06/20/17 09:51 Sod 3.375 gm/ Dextrose IVPB 100 mls/hr Q8H-IV SILVANA Administration Protocol Ondansetron HCl 4 mg 06/13/17 20:26 Zofran Injection IVPB Q6H PRN NAUSEA Oxycodone HCl 5 mg 06/18/17 22:41 06/19/17 09:07 Roxicodone - PO 5 mg Q6H PRN Administration PAIN Tamsulosin HCl 0.4 mg 06/18/17 14:15 06/20/17 08:26 Flomax - PO 0.4 mg DAILY@0830 SILVANA Administration Assessment: 51 year male with a PMH of newly diagnosis erythrocytosis and nephrolithiasis, sent to ED by his urologist for right obstructing ureteral stone and for a left renal staghorn calculus. Plan: 1. Acute urinary retention - Resolved - Continue flomax daily 2. Right hydronephrosis 2/2 obstructive uropathy - Stent placed 06/13, nephrostomy removed - D/w Urology, pt cleared for discharge, will need office follow up for further work up 3. UTI - Leukocytosis improving - Zosyn (day 7) 4. Bilateral DVT - Start Eliquis 5mg BID today - IVC filter 06/11 5. MENDOZA - Cr stable - Discontinue fluids 6. Erythrocytosis - Recent bone marrow bx non diagnostic, possible cause BAL causing reactive PV - Suspicion for atypical vs reactive MPN 7. gout vs. pseudogout - Possibly also due to PCV - LE Swelling improved; s/p 3 days colchicine 8. Mobitz Type I heart block - Per cardiology, tele showed episode of mobitz I second degree avb during sleep- - Likely due to increased vagal tone during sleep and BAL - Outpatient workup for severe BAL Visit type - Emergency Visit Emergency Visit: Yes ED Registration Date: 06/06/17 Care time: The patient presented to the Emergency Department on the above date and was hospitalized for further evaluation of their emergent condition. - New Patient This patient is new to me today: No - Critical Care Critical Care patient: No
[2017-06-20] MEDS ORDERED: APIXABAN 5 MG TABLET PO SCH (10:30)
--- NOTE | 2017-06-20 12:55 | PN ---
Progress Note, Physician History of Present Illness: Pt seen and examined at bedside. He denies dysuria or hematuria. - Current Medication List Current Medications: Active Medications Acetaminophen (Tylenol -) 325 mg PO Q6H PRN PRN Reason: PAIN LEVEL 6-10 Last Admin: 06/19/17 09:08 Dose: 325 mg Apixaban (Eliquis -) 5 mg PO BID [facility] Last Admin: 06/20/17 11:44 Dose: 5 mg Piperacillin Sod/Tazobactam (Sod 3.375 gm/ Dextrose) 50 mls @ 100 mls/hr IVPB Q8H-IV SILVANA PRN Reason: Protocol Last Admin: 06/20/17 09:51 Dose: 100 mls/hr Ondansetron HCl (Zofran Injection) 4 mg IVPB Q6H PRN PRN Reason: NAUSEA Oxycodone HCl (Roxicodone -) 5 mg PO Q6H PRN PRN Reason: PAIN Last Admin: 06/19/17 09:07 Dose: 5 mg Tamsulosin HCl (Flomax -) 0.4 mg PO DAILY@0830 [facility] Last Admin: 06/20/17 08:26 Dose: 0.4 mg - Objective Vital Signs: Vital Signs Temperature 98.2 F 06/20/17 06:42 Pulse Rate 88 06/20/17 10:00 Respiratory Rate 18 06/20/17 10:00 Blood Pressure 126/59 06/20/17 10:00 O2 Sat by Pulse Oximetry (%) 96 06/20/17 09:00 Constitutional: Yes: Calm Eyes: Yes: Conjunctiva Clear HENT: Yes: Atraumatic Neck: Yes: Supple Cardiovascular: Yes: S1, S2 Respiratory: Yes: CTA Bilaterally Gastrointestinal: Yes: Soft, Abdomen, Obese Genitourinary: Yes: WNL Edema: No Neurological: Yes: Oriented Psychiatric: Yes: Oriented Labs: CBC, BMP 06/20/17 06:10 06/20/17 06:10 INR, PTT INR 1.17 (0.82-1.09) H 06/13/17 05:35 Problem List - Problems (1) Acute kidney injury Code(s): N17.9 - ACUTE KIDNEY FAILURE, UNSPECIFIED Assessment/Plan Current Medications Generic Name Dose Route Start Last Admin Trade Name Freq PRN Reason Stop Dose Admin Acetaminophen 325 mg 06/13/17 20:26 06/19/17 09:08 Tylenol - PO 325 mg Q6H PRN Administration PAIN LEVEL 6-10 Apixaban 5 mg 06/20/17 10:30 06/20/17 11:44 Eliquis - PO 5 mg BID SILVANA Administration Piperacillin Sod/Tazobactam 50 mls @ 100 mls/hr 06/14/17 02:00 06/20/17 09:51 Sod 3.375 gm/ Dextrose IVPB 100 mls/hr Q8H-IV SILVANA Administration Protocol Ondansetron HCl 4 mg 06/13/17 20:26 Zofran Injection IVPB Q6H PRN NAUSEA Oxycodone HCl 5 mg 06/18/17 22:41 06/19/17 09:07 Roxicodone - PO 5 mg Q6H PRN Administration PAIN Tamsulosin HCl 0.4 mg 06/18/17 14:15 06/20/17 08:26 Flomax - PO 0.4 mg DAILY@0830 SILVANA Administration Impression 1. MENDOZA resolving 2. obstructive uropathy 3. CKD 4. nephrolithiasis 5. polycythemia 6. hyperkalemia 7. DVT 8. UTI Plan - renal function is stable - explained to pt that he should follow with nephrology, he will see his organizational psychologist after discharge - urology follow up - cont flomax - monitor renal function - discussed with hospitalist - will follow PRN Dr Hall
--- NOTE | 2017-06-20 14:04 | PN ---
Progress Note (short form) - Note Progress Note: PULMONARY VSS/AFEBRILE HEMATURIA AFTER TAKING ELIQUIS ANICTERIC CLEAR S1S2 BS+ LESS EDEMA LABS/MEDS/NOTES/IMAGES REVIEWED IMP BILATERAL DVT MENDOZA IMPROVING OBSTRUCTIVE UROPATHY S/P NEPHROSTOMY ERYTHROCYTOSIS R/O BAL PT GIVES H/O SNORING PLAN ANTICOAGULATION SLEEP STUDIES OUTPATIENT UROLOGICAL FOLLOW UP RE-EVAL BOTH ULTRASOUND LOWER EXT STUDIES Leanna HAQUE MD
--- NOTE | 2017-06-20 14:26 | PN ---
Progress Note, Physician History of Present Illness: clinically patient is stable had some hematuria again - Current Medication List Current Medications: Active Medications Acetaminophen (Tylenol -) 325 mg PO Q6H PRN PRN Reason: PAIN LEVEL 6-10 Last Admin: 06/19/17 09:08 Dose: 325 mg Apixaban (Eliquis -) 5 mg PO BID [facility] Last Admin: 06/20/17 11:44 Dose: 5 mg Piperacillin Sod/Tazobactam (Sod 3.375 gm/ Dextrose) 50 mls @ 100 mls/hr IVPB Q8H-IV SILVANA PRN Reason: Protocol Last Admin: 06/20/17 09:51 Dose: 100 mls/hr Ondansetron HCl (Zofran Injection) 4 mg IVPB Q6H PRN PRN Reason: NAUSEA Oxycodone HCl (Roxicodone -) 5 mg PO Q6H PRN PRN Reason: PAIN Last Admin: 06/19/17 09:07 Dose: 5 mg Tamsulosin HCl (Flomax -) 0.4 mg PO DAILY@0830 [facility] Last Admin: 06/20/17 08:26 Dose: 0.4 mg - Objective Vital Signs: Vital Signs Temperature 97.6 F 06/20/17 14:00 Pulse Rate 108 H 06/20/17 14:00 Respiratory Rate 20 06/20/17 14:00 Blood Pressure 145/90 06/20/17 14:00 O2 Sat by Pulse Oximetry (%) 96 06/20/17 09:00 Constitutional: Yes: No Distress, Calm Cardiovascular: Yes: S1, S2 Respiratory: Yes: Regular, CTA Bilaterally Gastrointestinal: Yes: Normal Bowel Sounds, Soft Genitourinary: Yes: Other (hematuria) Musculoskeletal: Yes: WNL Extremities: Yes: WNL Neurological: Yes: Alert, Oriented Psychiatric: Yes: Alert, Oriented Labs: CBC, BMP 06/20/17 06:10 06/20/17 06:10 INR, PTT INR 1.17 (0.82-1.09) H 06/13/17 05:35 Assessment/Plan Problem List - Problems (1) Acute kidney injury Code(s): N17.9 - ACUTE KIDNEY FAILURE, UNSPECIFIED (2) Creatinine elevation Code(s): R79.89 - OTHER SPECIFIED ABNORMAL FINDINGS OF BLOOD CHEMISTRY (3) Hyperkalemia Code(s): E87.5 - HYPERKALEMIA (4) Kidney stones Code(s): N20.0 - CALCULUS OF KIDNEY (5) Obstruction of kidney Code(s): N28.89 - OTHER SPECIFIED DISORDERS OF KIDNEY AND URETER (6) Polycythemia Code(s): D75.1 - SECONDARY POLYCYTHEMIA (7) Dvt femoral (deep venous thrombosis) Code(s): I82.419 - ACUTE EMBOLISM AND THROMBOSIS OF UNSPECIFIED FEMORAL VEIN 8 leukocytosis plan wbc trending down patient stable will look at the wbc and then decide rest continue as per the primary team
[2017-06-21] MEDS ORDERED: PIPERACILLIN/TAZOBACTAM 3.375 GM VIAL IVPB ONE (01:40)
[2017-06-21] MEDS: PIPERACILLIN/TAZOB 3.375 GM 3.375 GM in DEXTROSE 5%-WATER - 50 ML IVPB SCH (01:50)
[2017-06-21 07:54] LABS: MCH 25.1 pg (25.7-33.7); MCHC 31.8 g/dl (32.0-35.9); MEAN CELL VOLUME 79.1 fl (80-96); MEAN PLT VOLUME 7.9 fl (7.5-11.1); PLATELET COUNT 337 K/MM3 (134-434); RDW 15.5 % (11.9-15.9); WHITE BLOOD COUNT 16.1 K/mm3 (4.0-10.0)
[2017-06-21] MEDS: TAMSULOSIN HCL 0.4 MG CAP.ER.24H (FP) PO SCH (08:11)
[2017-06-21 08:31] LABS: ANION GAP 10 (8-16); CALCIUM 9.6 mg/dL (8.5-10.1); CO2 27 mmol/L (21-32); CREATININE 1.2 mg/dL (0.7-1.3); GLUCOSE,RANDOM 86 mg/dL (74-106)
[2017-06-21 08:45] LABS: METAMYELOCYTE 1 % (0-2); PLATELET ESTIMATE ADEQUATE (NORMAL)
[2017-06-21 10:09] VITALS: BP 130/82
--- NOTE | 2017-06-21 10:39 | PN ---
Progress Note (short form) - Note Progress Note: Hematuria is better off Eliquis. No CP or SOB. No acute events overnight. Intake & Output 06/18/17 06/19/17 06/20/17 06/21/17 23:59 23:59 23:59 23:59 Intake Total 3265.5 350 3450 100 Output Total 4450 4425 3500 1000 Balance -1184.5 -4075 -50 -900 Last Vital Signs Temp Pulse Resp BP Pulse Ox 98.6 F 90 20 130/82 97 06/21/17 10:00 06/21/17 10:00 06/21/17 10:00 06/21/17 10:00 06/20/17 21:00 Active Medications Acetaminophen (Tylenol -) 325 mg PO Q6H PRN PRN Reason: PAIN LEVEL 6-10 Last Admin: 06/19/17 09:08 Dose: 325 mg Ondansetron HCl (Zofran Injection) 4 mg IVPB Q6H PRN PRN Reason: NAUSEA Oxycodone HCl (Roxicodone -) 5 mg PO Q6H PRN PRN Reason: PAIN Last Admin: 06/19/17 09:07 Dose: 5 mg Tamsulosin HCl (Flomax -) 0.4 mg PO DAILY@0830 [facility] Last Admin: 06/21/17 08:11 Dose: 0.4 mg Constitutional: Yes: NAD Eyes: Yes: WNL HENT: Yes: WNL Neck: Yes: WNL Cardiovascular: Yes: Regular Rate and Rhythm, S1, S2 Respiratory: Yes: CTA Bilaterally Gastrointestinal: Yes: Normal Bowel Sounds, Soft Extremities: Yes: LE edema Labs: Laboratory Results - last 24 hr 06/21/17 06/21/17 06:20 06:20 WBC 16.1 H RBC 5.53 Hgb 13.9 Hct 43.8 MCV 79.1 L MCH 25.1 L MCHC 31.8 L RDW 15.5 Plt Count 337 MPV 7.9 Neutrophils % 61.0 Lymphocytes % 25.0 D Monocytes % 11.0 H D Metamyelocytes 1 Myelocytes 1 D Differential Comment Manual diff done Reactive Lymphocytes 1 Platelet Estimate Adequate Sodium 140 Potassium 4.7 Chloride 103 Carbon Dioxide 27 Anion Gap 10 BUN 21 H Creatinine 1.2 Random Glucose 86 Calcium 9.6 Problem List - Problems (1) Acute kidney injury Code(s): N17.9 - ACUTE KIDNEY FAILURE, UNSPECIFIED (2) Creatinine elevation Code(s): R79.89 - OTHER SPECIFIED ABNORMAL FINDINGS OF BLOOD CHEMISTRY (3) Hyperkalemia Code(s): E87.5 - HYPERKALEMIA (4) Kidney stones Code(s): N20.0 - CALCULUS OF KIDNEY (5) Obstruction of kidney Code(s): N28.89 - OTHER SPECIFIED DISORDERS OF KIDNEY AND URETER (6) Polycythemia Code(s): D75.1 - SECONDARY POLYCYTHEMIA (7) Dvt femoral (deep venous thrombosis) Code(s): I82.419 - ACUTE EMBOLISM AND THROMBOSIS OF UNSPECIFIED FEMORAL VEIN Assessment/Plan IMP BILATERAL DVT OBSTRUCTIVE UROPATHY S/P NEPHROSTOMY ERYTHROCYTOSIS R/O BAL PT GIVES H/O SNORING PLAN OFF AC NPSG OUTPATIENT O2 NEEDED IVF ABX PER ID D/C PLANNING Dr oLve
[2017-06-21 13:53] VITALS: PULSE 96; TEMP 97.8
--- NOTE | 2017-06-21 14:10 | PN ---
Physical Exam: SUBJECTIVE: Patient seen and examined oob to chair. He feels well, hematuria is resolved off eliquis. He denies fever. OBJECTIVE: Vital Signs Period Temp Pulse Resp BP Sys/Aguirre Pulse Ox Last 24 Hr 97.3 F-98.6 F 73-96 19-22 109-147/61-85 97 PE Neuro: alert, awake, cn 2-12intact Pulm: CTAB CV: s1 s2 rrr no mrg Abd: s nt nd +bs Ext: warm, no le edema or redness Laboratory Results - last 24 hr 06/21/17 06/21/17 06:20 06:20 WBC 16.1 H RBC 5.53 Hgb 13.9 Hct 43.8 MCV 79.1 L MCH 25.1 L MCHC 31.8 L RDW 15.5 Plt Count 337 MPV 7.9 Neutrophils % 61.0 Lymphocytes % 25.0 D Monocytes % 11.0 H D Metamyelocytes 1 Myelocytes 1 D Differential Comment Manual diff done Reactive Lymphocytes 1 Platelet Estimate Adequate Sodium 140 Potassium 4.7 Chloride 103 Carbon Dioxide 27 Anion Gap 10 BUN 21 H Creatinine 1.2 Random Glucose 86 Calcium 9.6 Active Medications Generic Name Dose Route Start Last Admin Trade Name Freq PRN Reason Stop Dose Admin Acetaminophen 325 mg 06/13/17 20:26 06/19/17 09:08 Tylenol - PO 325 mg Q6H PRN Administration PAIN LEVEL 6-10 Ondansetron HCl 4 mg 06/13/17 20:26 Zofran Injection IVPB Q6H PRN NAUSEA Oxycodone HCl 5 mg 06/18/17 22:41 06/19/17 09:07 Roxicodone - PO 5 mg Q6H PRN Administration PAIN Tamsulosin HCl 0.4 mg 06/18/17 14:15 06/21/17 08:11 Flomax - PO 0.4 mg DAILY@0830 SILVANA Administration Assessment: 51 year male with a PMH of newly diagnosis erythrocytosis and nephrolithiasis, sent to ED by his urologist for right obstructing ureteral stone and for a left renal staghorn calculus. Plan: 1. Acute urinary retention - Resolved - Continue flomax daily 2. Right hydronephrosis 2/2 obstructive uropathy - Stent placed 06/13, nephrostomy removed - follow up in 1-2 weeks for remaining lithotripsy of large stone 3. UTI - Leukocytosis labile - Zosyn (day 8) - Awaiting ID recs 4. Bilateral DVT - Stopping AC until further eval with Dr. Boo as outpt d/t hematuria and DVT location - Repeat US doppler in 2 weeks - IVC filter placed 06/11 5. 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 Erythrocytosis - Recent bone marrow bx non diagnostic, possible cause BAL causing reactive PV - Suspicion for atypical vs reactive MPN 7. gout vs. pseudogout - Possibly also due to PCV - LE Swelling improved; s/p 3 days colchicine 8. Mobitz Type I heart block - Per cardiology, tele showed episode of mobitz I second degree avb during sleep- - Likely due to increased vagal tone during sleep and BAL - Outpatient workup for severe BAL Visit type - Emergency Visit Emergency Visit: Yes ED Registration Date: 06/06/17 Care time: The patient presented to the Emergency Department on the above date and was hospitalized for further evaluation of their emergent condition. - New Patient This patient is new to me today: No - Critical Care Critical Care patient: No
--- NOTE | 2017-06-21 15:29 | PN ---
Progress Note, Physician History of Present Illness: patient doing well no complaints discussed the case with heamtology - Current Medication List Current Medications: Active Medications Acetaminophen (Tylenol -) 325 mg PO Q6H PRN PRN Reason: PAIN LEVEL 6-10 Last Admin: 06/19/17 09:08 Dose: 325 mg Ondansetron HCl (Zofran Injection) 4 mg IVPB Q6H PRN PRN Reason: NAUSEA Oxycodone HCl (Roxicodone -) 5 mg PO Q6H PRN PRN Reason: PAIN Last Admin: 06/19/17 09:07 Dose: 5 mg Tamsulosin HCl (Flomax -) 0.4 mg PO DAILY@0830 SILVANA Last Admin: 06/21/17 08:11 Dose: 0.4 mg - Objective Vital Signs: Vital Signs Temperature 97.8 F 06/21/17 13:51 Pulse Rate 96 H 06/21/17 13:51 Respiratory Rate 22 06/21/17 13:51 Blood Pressure 130/82 06/21/17 10:00 O2 Sat by Pulse Oximetry (%) 97 06/20/17 21:00 Constitutional: Yes: No Distress, Calm HENT: Yes: Atraumatic Cardiovascular: Yes: Regular Rate and Rhythm Respiratory: Yes: Regular, CTA Bilaterally Gastrointestinal: Yes: Normal Bowel Sounds, Soft Musculoskeletal: Yes: WNL Extremities: Yes: WNL Neurological: Yes: Alert, Oriented Psychiatric: Yes: Alert, Oriented Labs: CBC, BMP 06/21/17 06:20 06/21/17 06:20 INR, PTT INR 1.17 (0.82-1.09) H 06/13/17 05:35 Assessment/Plan Problem List - Problems (1) Acute kidney injury Code(s): N17.9 - ACUTE KIDNEY FAILURE, UNSPECIFIED (2) Creatinine elevation Code(s): R79.89 - OTHER SPECIFIED ABNORMAL FINDINGS OF BLOOD CHEMISTRY (3) Hyperkalemia Code(s): E87.5 - HYPERKALEMIA (4) Kidney stones Code(s): N20.0 - CALCULUS OF KIDNEY (5) Obstruction of kidney Code(s): N28.89 - OTHER SPECIFIED DISORDERS OF KIDNEY AND URETER (6) Polycythemia Code(s): D75.1 - SECONDARY POLYCYTHEMIA (7) Dvt femoral (deep venous thrombosis) Code(s): I82.419 - ACUTE EMBOLISM AND THROMBOSIS OF UNSPECIFIED FEMORAL VEIN 8 leukocytosis plan wbc marginally up looks like he is going to have some reactive picture heam on case patient can be discharged home on cipro 500 mg twice a day for 7 days needs strict follow up i have explained in detail to the patient the signs and symptoms
--- NOTE | 2017-06-21 16:04 | DS ---
Physical Exam: SUBJECTIVE: Patient seen and examined, no issues, no hematuria. OBJECTIVE: Vital Signs Period Temp Pulse Resp BP Sys/Aguirre Pulse Ox Last 24 Hr 97.3 F-98.6 F 73-96 19-22 109-147/61-85 97 PE Neuro: alert, awake, cn 2-12intact Pulm: CTAB CV: s1 s2 rrr no mrg Abd: s nt nd +bs Ext: warm, no le edema or redness Laboratory Results - last 24 hr 06/21/17 06/21/17 06:20 06:20 WBC 16.1 H RBC 5.53 Hgb 13.9 Hct 43.8 MCV 79.1 L MCH 25.1 L MCHC 31.8 L RDW 15.5 Plt Count 337 MPV 7.9 Neutrophils % 61.0 Lymphocytes % 25.0 D Monocytes % 11.0 H D Metamyelocytes 1 Myelocytes 1 D Differential Comment Manual diff done Reactive Lymphocytes 1 Platelet Estimate Adequate Sodium 140 Potassium 4.7 Chloride 103 Carbon Dioxide 27 Anion Gap 10 BUN 21 H Creatinine 1.2 Random Glucose 86 Calcium 9.6 HOSPITAL COURSE: Date of Admission:06/06/17 Date of Discharge: 06/21/17 Minutes to complete discharge: 37 Discharge Summary Reason For Visit: CALCULUS OF KIDNEY,SERUM CREATINE RAIS Current Active Problems Acute kidney injury (Acute) Creatinine elevation (Acute) DVT prophylaxis (Acute) Dvt femoral (deep venous thrombosis) (Acute) Hyperkalemia (Acute) Kidney stones (Acute) Leukocytosis (Acute) Obstruction of kidney (Acute) Polycythemia (Acute) Hospital Course: Initial Hospital Course: Briefly, this 51 year old male with a history of polycythemia (has regular phlebotomy treatments, on Ramipril) and nephrolithiasis s/p multiple lithotripsies referred from his urologist's for 0.9mm right UPJ calculus and left staghorn calculus with hydronephrosis and elevated creatinine and potassium. Subsequent Hospital Course/Progress Note/DC summary by a/p: Assessment: 51 year male with a PMH of newly diagnosis erythrocytosis and nephrolithiasis, sent to ED by his urologist for right obstructing ureteral stone and for a left renal staghorn calculus. Plan: 1. Acute urinary retention - Resolved s/p arriola x24hr - Continue flomax daily 2. Right hydronephrosis 2/2 obstructive uropathy - Stent placed 06/13, nephrostomy removed - follow up in 1-2 weeks for remaining lithotripsy of large stone 3. UTI - Leukocytosis labile, per ID and heme could have a reactive process concurrently, d/t erythrocytosis - Zosyn (day 8) - Home with cipro 500mg BID x 1 week 4. Bilateral DVT - s/p heparin gtt and eliquis with hematuria - Stopping AC until further eval with Dr. Boo as outpt d/t hematuria and controversial DVT location - Repeat US doppler in 2 weeks - IVC filter placed 06/11 5. 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 Erythrocytosis - Recent bone marrow bx non diagnostic, possible cause BAL causing reactive PV - Suspicion for atypical vs reactive MPN 7. gout vs. pseudogout - Possibly also due to PCV - LE Swelling improved; received 3 days colchicine 8. Mobitz Type I heart block - Per cardiology, tele showed episode of mobitz I second degree avb during sleep- - Likely due to increased vagal tone during sleep and BAL - Outpatient workup for severe BAL, pulm referral enclosed Dispo: - Home with above meds and abx - Referrals with heme, pcp, pulm, urology and Id enclosed, to see outpt comber operator - Pt aware and agrees to above plan Condition: Stable - Instructions Diet, Activity, Other Instructions: Please return to the ED for any new, persistent, or worsening symptoms. Follow up with your PCP in 1 week Take antibiotics as directed and until completed Follow up with Dr. Boo and Dr. Gómez as outpt Repeat ultra sound of legs rule out dvt in 2 weeks and further management of obstructive sleep apnea Follow up with urology in 1 week for stone removal planning Follow with Dr. richard in office in 1 -2 weeks All referral information enclosed Referrals: Gordo Gómez MD [Staff Physician] - Dilip Omalley MD [Primary Care Provider] - Tahmina Boo MD [Staff Physician] - Dominick Richard MD [Staff Physician] - Disposition: HOME - Home Medications Comprehensive Discharge Medication List: Ambulatory Orders Ciprofloxacin [Cipro -] 500 mg PO Q12H #14 tablet 06/21/17 Tamsulosin HCl [Flomax] 0.4 mg PO DAILY #30 cap.er.24h 06/21/17 This patient is new to me today: No Emergency Visit: Yes ED Registration Date: 06/06/17 Care time: The patient presented to the Emergency Department on the above date and was hospitalized for further evaluation of their emergent condition. Critical Care patient: No - Discharge Referral Referred to [facility] Yes Physician Referral: Dilip Omalley MD (Int Med)
== END 2017-06-21 17:15 | disposition home or self-care (01) | DRG 674 ==
LOC: JER 13:56 → JERBED 15:02 → J4W 17:45 → J6S 06-13 17:57
PROVIDERS: ADMIT Internal Medicine; ATTEND Nurse Practitioner Acute Care
PROC: 0T9030Z Drainage of Right Kidney with Drainage Device, Percutaneous Approach (ICD-10-PCS; principal; 2017-06-06)
PROC: BT01ZZZ Plain Radiography of Right Kidney (ICD-10-PCS; 2017-06-06)
PROC: 06H03DZ Insertion of Intraluminal Device into Inferior Vena Cava, Percutaneous Approach (ICD-10-PCS; 2017-06-11)
PROC: 0T768DZ Dilation of Right Ureter with Intraluminal Device, Via Natural or Artificial Opening Endoscopic (ICD-10-PCS; 2017-06-13)
PROC: BT1DZZZ Fluoroscopy of Right Kidney, Ureter and Bladder (ICD-10-PCS; 2017-06-13)
PROC: 0TP5X0Z Removal of Drainage Device from Kidney, External Approach (ICD-10-PCS; 2017-06-13)
DX: N13.2 Hydronephrosis with renal and ureteral calculous obstruction (principal); I82.413 Acute embolism and thrombosis of femoral vein, bilateral; I82.813 Embolism and thrombosis of superficial veins of lower extremities, bilateral; D75.1 Secondary polycythemia; N17.9 Acute kidney failure, unspecified; E87.5 Hyperkalemia; R00.1 Bradycardia, unspecified; I44.1 Atrioventricular block, second degree; N39.0 Urinary tract infection, site not specified; N18.9 Chronic kidney disease, unspecified; D72.828 Other elevated white blood cell count; M79.89 Other specified soft tissue disorders; M10.9 Gout, unspecified; N40.0 Benign prostatic hyperplasia without lower urinary tract symptoms
CPT/HCPCS: 36415; 37191; 50432; 71010-TC; 76000-TC; 76937-TC; 78582-TC; 80048; 80053; 81003; 81015; 82272; 82360; 83735; 84100; 84443; 84550; 85025; 85610; 85730; 86850; 86900; 86901; 87086; 87899; 88300-TC; 93005; 93010; 93306-TC; 93970-TC; 94010; 94640; 94760; 97116-GP; 97162-GP; 99284-25; A4358; A9539; A9540; C1729; C1769; C1880; C1887; J1644

== ENCOUNTER 2017-07-27 21:26 | Emergency (ER) | payer OTHER ==
--- NOTE | 2017-07-27 21:36 | PDOC ---
History of Present Illness - General History Source: Patient Exam Limitations: No Limitations - History of Present Illness Initial Comments: 07/27/17 21:58 The patient is a 51 year old male with a significant past medical history of multiple DVTs, polycythemia (has regular phlebotomy treatments, on Ramipril) and nephrolithiasis s/p multiple lithotripsies and left staghorn calculus with hydronephrosis and elevated creatinine and potassium, who is sent to the ED by Dr. Orona with subjective fever, chills, nausea, and vomiting. Patient had a lithotripsy yesterday for his right kidney stone. He woke up this morning with back pain and nausea but symptoms worsened throughout the day. Patient also notes mild blood in the urine but states it is normal after his prior lithotripsies. Patient denies dysuria, frequency, urgency. Patient had tylenol 3 times today with little to no alleviation of the back pain and fever. <Vincent Alexis - Last Filed: 07/27/17 22:04> <Yola Benjamin - Last Filed: 07/28/17 06:01> - General Chief Complaint: Nausea/Vomiting Stated Complaint: NAUSEA/VOMITING Past History <Vincetn Alexis - Last Filed: 07/27/17 22:04> - Past Medical History Kidney Stones: Yes - Psycho/Social/Smoking Cessation Hx Anxiety: No Suicidal Ideation: No Smoking History: Never smoked Have you smoked in the past 12 months: No Number of Cigarettes Smoked Daily: 0 Hx Alcohol Use: Yes (SOCIAL) Drug/Substance Use Hx: No Substance Use Type: None <Yola Benjamin - Last Filed: 07/28/17 06:01> - Past Medical History Allergies/Adverse Reactions: Allergies Allergy/AdvReac Type Severity Reaction Status Date / Time No Known Allergies Allergy Verified 06/06/17 14:01 Home Medications: Ambulatory Orders Tamsulosin HCl [Flomax] 0.4 mg PO DAILY #30 cap.er.24h 06/21/17 Acetaminophen [Tylenol] 650 mg PO ONCE 07/27/17 Cefuroxime Axetil [Ceftin -] 500 mg PO Q12H #20 tablet 07/28/17 Ondansetron [Zofran Odt -] 4 mg SL BID PRN #10 od.tablet 07/28/17 Oxycodone HCl/Acetaminophen [Percocet 5-325 mg Tablet] 1 tab PO Q6H PRN #20 tablet MDD 3 tabs 07/28/17 Review of Systems - Review of Systems Able to Perform ROS?: Yes Comments:: 07/27/17 21:58 GENERAL/CONSTITUTIONAL: + fever, chills. No weakness. HEAD, EYES, EARS, NOSE AND THROAT: No change in vision. No ear pain or discharge. No sore throat. CARDIOVASCULAR: No chest pain or shortness of breath. RESPIRATORY: No cough, wheezing, or hemoptysis. GASTROINTESTINAL: No nausea, vomiting, diarrhea or constipation. GENITOURINARY: No dysuria, frequency, or change in urination. MUSCULOSKELETAL: + back pain. No joint or muscle swelling or pain. No neck pain. SKIN: No rash NEUROLOGIC: No headache, vertigo, loss of consciousness, or change in strength/ sensation. ENDOCRINE: No increased thirst. No abnormal weight change. HEMATOLOGIC/LYMPHATIC: No anemia, easy bleeding, or history of blood clots. ALLERGIC/IMMUNOLOGIC: No hives or skin allergy. <Vincent Alexis - Last Filed: 07/27/17 22:04> *Physical Exam - Vital Signs Last Vital Signs Temp Pulse Resp BP Pulse Ox 99.9 F H 105 H 18 159/103 97 07/27/17 21:32 07/27/17 21:32 07/27/17 21:32 07/27/17 21:32 07/27/17 21:32 - Physical Exam Comments: 07/27/17 21:58 GENERAL: The patient is awake, alert, and fully oriented, in no acute distress. HEAD: Normal with no signs of trauma. EYES: Pupils equal, round and reactive to light, extraocular movements intact, sclera anicteric, conjunctiva clear with no pallor. ENT: Ears normal, nares patent, oropharynx clear without exudates. Dry mucous membranes. NECK: Normal range of motion, supple without lymphadenopathy, JVD, or masses. LUNGS: Breath sounds equal, clear to auscultation bilaterally. No wheeze/ crackles. HEART: Regular rate and rhythm, normal S1 and S2 without murmur or rub. ABDOMEN: Midline supraumbilical hernia without focal tenderness or incarceration. Hypoactive bowel sounds. Moderately distended but soft. Generalized mild tenderness. No peritoneal signs. No Suárez's sign. EXTREMITIES: Normal range of motion, no edema. No clubbing or cyanosis. No cords , erythema, or tenderness. NEUROLOGICAL: Cranial nerves II through XII grossly intact. Normal speech, normal gait. PSYCH: Normal mood, normal affect. SKIN: Warm, Dry, normal turgor, no rashes or lesions noted. <Vincent Alexis - Last Filed: 07/27/17 22:04> - Vital Signs Last Vital Signs Temp Pulse Resp BP Pulse Ox 99.9 F H 105 H 18 159/103 97 07/27/17 21:32 07/27/17 21:32 07/27/17 21:32 07/27/17 21:32 07/27/17 21:32 <Yola Benjamin - Last Filed: 07/28/17 06:01> ED Treatment Course - LABORATORY CBC & Chemistry Diagram: 07/27/17 21:46 07/27/17 21:46 <Vincent Alexis - Last Filed: 07/27/17 22:04> - LABORATORY CBC & Chemistry Diagram: 07/27/17 21:46 07/27/17 21:46 <Yola Benjamin - Last Filed: 07/28/17 06:01> Progress Note - Progress Note Progress Note: Documentation has been prepared under my direction and personally reviewed by me in its entirety. I attest that this documented accurately reflects all work, treatment, procedures and medical decision making performed by me. <Yola Benjamin - Last Filed: 07/28/17 06:01> Medical Decision Making - Medical Decision Making As noted above, this 51-year-old man with a significant history of bilateral kidney stones and recent acute renal insufficiency (which resolved after admission last month) referred here by his urologist, Dr. Orona because of pain and fever one day after ESWL for right-sided kidney stone. Exam as noted On presentation, patient was 99 degrees Fahrenheit orally with relatively hyperdynamic vital signs (tachycardia/hypertension). Exam showed mild generalized abdominal tenderness without peritoneal signs or masses. Laboratory evaluation including CBC/chemistry profile showed white blood cell count of 17,200 (patient has had persistent leukocytosis for the last month; baseline studies of June 26, drawn after his acute renal insufficiency had resolved showed white blood cell count of 13,600.) Also, BUN is 37 and creatinine is 32. Patient has had stable baseline creatinine of 1.3, measured last on June 26. Because of his leukocytosis and increase in creatinine, possibility of urinary obstruction (although stent is in place, may not be functioning)/perinephric abscess possibility. Therefore none contrast abdominal/pelvic CT was performed. Ureteral stent found to be in appropriate placement. There is mild hydronephrosis on the right side with some very small stone seen within the kidney and no ureteral stones. No evidence of abscess seen either in genitourinary tract or GI tract. Patient given IV hydration (2 L normal saline) since increasing creatinine might likely be related to dehydration (patient states that although he had been told to drink plenty of water after his ESWL, he drank very little during the day today). Dr. Orona had suggested that patient receive Rocephin and he was given 1 g IV. He also received 4 mg Zofran IV and 1 mg Dilaudid IV for pain control. Patient felt significantly better after IV hydration/Zofran/Dilaudid and feels that he can go home. Laboratory values discussed with Dr. Orona. Patient will be discharged with prescription for Ceftin 500 mg twice a day. As well as Zofran 4 mg ODT to be used as needed for nausea and Percocet 5/325 (#20) to be used as needed for severe pain. Patient will follow-up with Dr. Orona on Sunday, August 01. Patient should return to the ER if he has worsening pain or develops persistent high fever/vomiting <Yola Benjamin - Last Filed: 07/28/17 06:01> *DC/Admit/Observation/Transfer - Attestations Scribe Attestion: 07/27/17 22:00 Documentation prepared by Vincent Alexis, acting as medical chemist for Yola Benjamin MD. <Vincent Alexis - Last Filed: 07/27/17 22:04> <Yola Benjamin - Last Filed: 07/28/17 06:01> Diagnosis at time of Disposition: History of lithotripsy Fever Qualifiers: Fever type: unspecified Qualified Code(s): R50.9 - Fever, unspecified - Discharge Dispostion Disposition: HOME Condition at time of disposition: Stable - Prescriptions Prescriptions: Cefuroxime Axetil [Ceftin -] 500 mg PO Q12H #20 tablet Oxycodone HCl/Acetaminophen [Percocet 5-325 mg Tablet] 1 tab PO Q6H PRN #20 tablet MDD 3 tabs PRN Reason: Severe Pain Ondansetron [Zofran Odt -] 4 mg SL BID PRN #10 od.tablet PRN Reason: Nausea - Referrals Referrals: Dilip Omalley MD [Primary Care Provider] - Cornel Orona I [Non Staff, Medical] - 07/31/17 - Patient Instructions Printed Discharge Instructions: DI for Extracorporeal Shock Wave Lithotripsy Additional Instructions: Continue to drink plenty of fluids Ceftin 500 mg twice a day Follow-up with in office on 07/31/17 Tylenol as needed for mild pain/fever Percocet 5/325 up to 3 times a day as needed for severe pain Zofran 4 mg ODT up to twice a day as needed for nausea Return to ER if you have persistent severe pain/fever/vomiting Follow-up with Dr. Omalley within the next 10 days
[2017-07-27 21:39] VITALS: BMI 31.3
[2017-07-27 21:51] LABS: PH,URINE 5.5 (4.5-8); URINE APPEARANCE Clear; URINE BILIRUBIN Negative (NEGATIVE); URINE GLUCOSE (UA) Negative (NEGATIVE); URINE KETONE Negative (NEGATIVE); URINE NITRITE Negative (NEGATIVE); URINE UROBILINOGEN 0.2 (0.2-1.0)
[2017-07-27] MEDS ORDERED: ONDANSETRON 4 MG/2 ML VIAL IVPUSH ONE (21:56)
[2017-07-27 21:59] LABS: URINE BLOOD 2+ (NEGATIVE); URINE COLOR YELLOW; URINE LEUK ESTERASE TRACE (NEGATIVE); URINE PROTEIN 3+ (NEGATIVE)
[2017-07-27] MEDS ORDERED: ONDANSETRON 4 MG/2 ML VIAL ONE (22:00)
[2017-07-27 22:04] LABS: MCH 25.8 pg (25.7-33.7); MCHC 32.3 g/dl (32.0-35.9); MEAN CELL VOLUME 79.8 fl (80-96); MEAN PLT VOLUME 8.7 fl (7.5-11.1); PLATELET COUNT 313 K/MM3 (134-434); RDW 14.8 % (11.9-15.9); WHITE BLOOD COUNT 17.2 K/mm3 (4.0-10.8)
[2017-07-27 22:14] LABS: ALK PHOS 80 U/L (32-92); ANION GAP 10 (8-16); BILIRUBIN,TOTAL 0.3 mg/dl (0.2-1.0); CALCIUM 9.4 mg/dl (8.4-10.2); CO2 23 mmol/L (22-28); CREATININE 3.2 mg/dl (0.6-1.3); GLUCOSE,RANDOM 108 mg/dl (74-106); SGOT/AST 19 U/L (10-42); SGPT/ALT 15 U/L (10-40); TOT PROT 6.6 g/dl (6.4-8.3)
[2017-07-27 23:16] LABS: PLATELET ESTIMATE ADEQUATE (NORMAL)
[2017-07-27 23:18] LABS: URINE BACTERIA FEW /hpf (NEGATIVE)
[2017-07-27] MEDS ORDERED: CEFTRIAXONE 1 GM in DEXTROSE 5%-WATER - 50 ML IVPB ONE (23:48)
[2017-07-27] MEDS ORDERED: cefTRIAXone SODIUM 1 GM VIAL ONE (23:49)
[2017-07-28] MEDS ORDERED: HYDROmorphone HCL CARPU-JECT 1 MG/1 ML DISP.SYRIN IVPUSH ONE (00:20)
[2017-07-28] MEDS ORDERED: HYDROmorphone HCL CARPU-JECT 1 MG/1 ML DISP.SYRIN ONE (00:21)
[2017-07-28 01:28] VITALS: BP 146/96; PULSE 91; TEMP 98.6
== END 2017-07-28 02:49 | disposition home or self-care (01) ==
LOC: FER 21:26
PROC: 3E03329 Introduction of Other Anti-infective into Peripheral Vein, Percutaneous Approach (ICD-10-PCS; principal; 2017-07-27)
PROC: 3E033NZ Introduction of Analgesics, Hypnotics, Sedatives into Peripheral Vein, Percutaneous Approach (ICD-10-PCS; 2017-07-27)
PROC: 3E033GC Introduction of Other Therapeutic Substance into Peripheral Vein, Percutaneous Approach (ICD-10-PCS; 2017-07-27)
DX: Z98.890 Other specified postprocedural states (principal); R50.9 Fever, unspecified; Z86.718 Personal history of other venous thrombosis and embolism; Z87.442 Personal history of urinary calculi
CPT/HCPCS: 36415; 74176-TC; 80053; 81003; 81015; 85025; 99283-25

== ENCOUNTER 2017-10-15 08:47 | Day surgery (SDC) | payer OTHER ==
[2017-10-11 13:11] VITALS: BMI 31.0
[2017-10-15 09:24] LABS: MCH 24.9 pg (25.7-33.7); MCHC 31.9 g/dl (32.0-35.9); MEAN CELL VOLUME 78.2 fl (80-96); MEAN PLT VOLUME 7.9 fl (7.5-11.1); PLATELET COUNT 358 K/MM3 (134-434); RDW 15.5 % (11.9-15.9)
[2017-10-15 09:53] LABS: INR 0.96 (0.82-1.09); PROTHROMBIN TIME (PATIENT) 10.9 SEC (9.98-11.88)
[2017-10-15 11:55] LABS: PLATELET ESTIMATE ADEQUATE
[2017-10-15 13:41] VITALS: TEMP 97.9
[2017-10-15 14:16] VITALS: BP 139/78; PULSE 68
== END 2017-10-15 14:17 | disposition home or self-care (01) ==
LOC: JRADIR 08:47
PROVIDERS: ATTEND Internal Medicine Hematology
PROC: 06PY3DZ Removal of Intraluminal Device from Lower Vein, Percutaneous Approach (ICD-10-PCS; principal; 2017-10-15)
DX: I82.509 Chronic embolism and thrombosis of unspecified deep veins of unspecified lower extremity (principal); D75.1 Secondary polycythemia
CPT/HCPCS: 36415; 37193; 76000-TC; 76937-TC; 85025; 85610; C1769; C1773

== ENCOUNTER 2021-01-08 15:52 | Inpatient (IN) | payer OTHER ==
[2021-01-08] MEDS ORDERED: SODIUM CHLORIDE 1,000 ML IV SCH (16:15)
[2021-01-08] MEDS ORDERED: ASPIRIN 325 MG TABLET PO ONE (16:51)
[2021-01-08] MEDS ORDERED: ASPIRIN 81 MG CHEWABLE TABLETS ONE (17:02)
[2021-01-08 17:21] LABS: BASO % 1.2 % (0-2.0); EOS % 2.9 % (0-4.5); HEMATOCRIT 50.2 % (35.4-49); HEMOGLOBIN 16.1 GM/dl (11.7-16.9); LYMPH % 15.9 % (8-40); MCH 25.8 pg (25.7-33.7); MEAN CELL VOLUME 80.6 fl (80-96); MEAN PLT VOLUME 8.8 fl (7.5-11.1); MONO % 7.4 % (3.8-10.2); NEUT % 72.6 % (42.8-82.8); PLATELET COUNT 368 K/MM3 (134-434); RBC 6.23 M/mm3 (4.00-5.60); RDW 15.1 % (11.9-15.9); WHITE BLOOD COUNT 12.8 K/mm3 (4.0-10.8)
[2021-01-08 17:29] LABS: ALBUMIN 3.9 g/dl (3.4-5.0); BILIRUBIN,TOTAL 0.6 mg/dl (0.2-1); CALCIUM 9.1 mg/dl (8.5-10); CREATININE 1.2 mg/dl (0.55-1.3); POTASSIUM 4.4 mmol/L (3.5-5.1); TOT PROT 6.7 g/dl (6.4-8.2)
[2021-01-08 17:30] LABS: ACTIVATED PTT 29.6 SECONDS (25.2-36.5)
[2021-01-08 17:34] LABS: INR 1.07 (0.82-1.09); PROTHROMBIN TIME (PATIENT) 11.9 SEC (10.2-13.0)
[2021-01-08 17:42] LABS: CHOLESTEROL 243 mg/dl (50-200); HDL CHOLESTEROL 32 mg/dl (40-60); TRIGLYCERIDES 562 mg/dl (0-150)
[2021-01-08 17:43] LABS: LDL CHOLESTEROL (ONLY SJRH) 99 mg/dL (5-100)
[2021-01-08] MEDS ORDERED: ATORVASTATIN CA 80 MG TABLET (FP) PO ONE (17:49)
[2021-01-08] MEDS ORDERED: ATORVASTATIN CA 80 MG TABLET (FP) ONE (18:01)
[2021-01-08 19:33] LABS: EPITHELIAL CELLS RARE /hpf
[2021-01-08 21:25] VITALS: BMI 34.7
[2021-01-09 08:21] LABS: BASO % 1.2 % (0-2.0); EOS % 3.6 % (0-4.5); HEMATOCRIT 49.5 % (35.4-49); HEMOGLOBIN 15.9 GM/dl (11.7-16.9); LYMPH % 19.5 % (8-40); MCH 25.8 pg (25.7-33.7); MEAN CELL VOLUME 80.6 fl (80-96); MEAN PLT VOLUME 8.9 fl (7.5-11.1); MONO % 8.6 % (3.8-10.2); NEUT % 67.1 % (42.8-82.8); PLATELET COUNT 337 K/MM3 (134-434); RBC 6.14 M/mm3 (4.00-5.60); RDW 14.9 % (11.9-15.9); WHITE BLOOD COUNT 11.5 K/mm3 (4.0-10.8)
[2021-01-09 08:30] LABS: CALCIUM 9.1 mg/dl (8.5-10); CREATININE 1.1 mg/dl (0.55-1.3); MAGNESIUM 1.9 mg/dL (1.8-2.4); POTASSIUM 4.5 mmol/L (3.5-5.1)
[2021-01-09] MEDS ORDERED: ASPIRIN 325 MG ENTERIC COATED TABLET (FP) PO SCH (10:00)
[2021-01-09] MEDS ORDERED: ENOXAPARIN NA (PORCINE) 40 MG/0.4 ML DISP.SYRIN SQ SCH (10:00)
[2021-01-09] MEDS ORDERED: FAMOTIDINE 20 MG TABLET PO SCH (10:00)
[2021-01-09 12:23] LABS: CHOLESTEROL 219 mg/dl (50-200); HDL CHOLESTEROL 34 mg/dl (40-60); LDL CHOLESTEROL (ONLY DFH) 155 mg/dl (5-100); TRIGLYCERIDES 149 mg/dl (0-150)
[2021-01-09 15:31] VITALS: BP 143/85; PULSE 80; TEMP 98
[2021-01-09] MEDS ORDERED: ATORVASTATIN CA 20 MG TABLET (FP) PO SCH (22:00)
== END 2021-01-09 19:37 | disposition home or self-care (01) | DRG 71 ==
LOC: FER 15:52 → FM/S 17:03
PROVIDERS: ADMIT Internal Medicine; ATTEND Nurse Practitioner Acute Care
DX: G45.4 Transient global amnesia (principal); G45.9 Transient cerebral ischemic attack, unspecified; K21.9 Gastro-esophageal reflux disease without esophagitis; D75.1 Secondary polycythemia; E66.9 Obesity, unspecified; Z68.34 Body mass index [BMI] 34.0-34.9, adult
CPT/HCPCS: 36415; 70450-TC; 70551-TC; 80048; 80053; 80061; 81003; 81015; 83036; 83721; 83735; 84100; 84443; 84484; 85025; 85610; 85730; 86850; 86900; 86901; 93005; 93880-TC; 99285-25; C9803; U0003